=== PATIENT | male | born 1960 | race Caucasian/White ===

== ENCOUNTER 2022-08-16 10:06 | Emergency (ER) | payer MEDICARE, BC, SELFPAY ==
[2022-08-16] VITALS (17 sets, daily range): BP systolic 99–117; BP diastolic 67–81; PULSE 54–88; RESP 18; TEMP 36.3; O2SAT 94–97
--- NOTE | 2022-08-16 11:49 | CRLHL7_ITS ---
For Patients: As a result of the Century Cures Act, medical imaging exams and procedure reports are released immediately into your electronic medical record. You may view this report before your referring provider. If you have questions, please contact your health care provider. Indication: Fainted with bruise on left back Technique: Chest two views Comparison: None Findings/Impression: Cardiovascular and mediastinum: Heart size and vasculature are normal in caliber and appearance. Lungs and pleural space: Lungs are clear. No sign of infiltrate or mass. No sign of pleural effusion. No pneumothorax. Bones and soft tissues: No acute findings. Dictated by Jim Saenz MD @ 08/16/2022 12:48:38 PM (Electronically Signed)
--- OUTSIDE RECORDS SUMMARY | 2022-08-16 12:09 | XMS_ITS ---
:1960 Author Organization [facility] 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 - [address] 5pm May, Croh n's disease of small Primary [place], [place] [id number] complications K5 0.00 [facility] - [address] 5pm Apr, Croh n's disease of small Primary [place], [place] [id number] complications K5 0.00 and Low back pain M5 4.5 [facility] - [address] 5pm Jul, Low back pain M54.5 ; [place], [place] Major depress[place] disorder, [id number] recurrent severe without psychotic featur es F33.2 and Crohn's dise ase of small intestine without complications K5 0.00 [facility] - [address] 5pm Jul, Mariella r depressive disorder, [place], [place] recurrent keaton re without [id number] psychotic featur es F33.2 [facility] - [address] 5pm May, Low back pain M54.5 [place] [address] IMMUNIZATIONS No Known Immunizations SOCIAL HISTORY Never Assessed REASON FOR REFERRAL FUNCTIONAL STATUS PLAN OF CARE Activity Details Follow Up 6 Months Reason: VITAL SIGNS MEDICATIONS Medication Instructions Dosage Frequency Start End Duration Statu s Date Date Lyrica 100 mg orally 2 times a 1 cap(s) 12h Active day sertraline Active atorvastatin 20 orally once a 1 tab(s) 24h May, day(s) Active mg day 2019 Vitamin B-12 orally once a 1 tab(s) 24h May, day(s) Ac tive 500 mcg day 2019 Remicade 100 mg intravenously as directed May, wee k(s) Active every 8 weeks 2019 mirtazapine 45 TK 1 T PO D 90 Activ e mg AT BEDTIME PROCEDURES Procedure Date Ordered Result Body Site PSYCH DIAGNOSTIC EVALUATION Jul 07, 2020 RESULTS No Results REASON FOR VISIT Phone recert, PHONE recert, cannabis f.u, Depressed mood, Chronic pain, medical cannabis for crohns Insurance Providers [facility] Health Member Patient Patient Patient Patient Patient Subscriber Subscriber Subscriber Group Insurance Plan Plan Plan Plan ID Relationship Address Phone Name Date of ID Name Date of No Type Insurance Insurance Insurance Coverage to Subscriber Address Phone Name Dates BCBS [phone] [facility] self Jez J [id number] [facility] [id number] Medicare [place] [address] [place] [id number] Medicare National [phone] Medicare self Jez J 1961 [id number] [place] [id number] Part B [employer] CLAIM [address] [place] [address]
[2022-08-16] MEDS: 0.9 % SODIUM CHLORIDE 1000 ml 1,000 ML IV (12:34)
[2022-08-16 12:35] LABS: Basophils Absolute Auto 0.01 K/uL (0.00-0.30); Basophils Percent Auto 0.1 % (0.0-3.0); Eosinophils Absolute Auto 0.08 K/uL (0.00-0.50); Eosinophils Percent Auto 1.1 % (0.0-7.0); Hematocrit 41.7 % (37.0-53.0); Hemoglobin* 13.9 gm/dL (13.5-17.5); Immature Granulocytes Abs Auto 0.01 K/uL (0.00-0.30); Immature Granulocytes Pct Auto 0.1 %; Lymphocytes Absolute Auto 2.88 K/uL (0.90-2.90); Lymphocytes Percent Auto 40.6 % (20-44); Mean Corpuscular HGB Conc 33 gm/dL (32-36); Mean Corpuscular Hemoglobin 29 pg (26-34); Mean Corpuscular Volume 88 fL (80-100); Monocytes Percent Auto 9.2 % (0.0-11.0); Neutrophils Absolute Auto 3.47 K/uL (1.7-7.0); Neutrophils Percent Auto 48.9 % (42.0-72.0); Platelet Count* 215 K/uL (140-440); RDW Coefficient of Variation % 12.9 % (11.5-15.5); Red Blood Count 4.75 m/uL (4.30-5.90)
[2022-08-16 12:37] LABS: Appearance Urine Clear (Clear); Bilirubin Urine Negative (Negative); Blood Urine Negative (Negative); Color Urine Yellow (Yellow); Glucose Urine Negative (Negative); Ketones Urine Negative (Negative); Leukocyte Esterase Urine Negative (Negative); Nitrite Urine Negative (Negative); Protein Urine Negative (Negative); Specific Gravity Urine >= 1.030 (1.000-1.030); Urobilinogen Urine 0.2 (0.2-1.0); pH Urine 5.5 (5.0-8.5)
--- NOTE | 2022-08-16 12:42 | ED.GENADULT ---
HPI - General Adult General Date Seen: 08/16/22 Chief complaint: Fall/Minor Trauma Stated complaint: Fainted yesterday, aches on abdomen Time Seen by Provider: 08/16/22 11:28 Source: patient and family Mode of arrival: ambulatory Limitations: no limitations History of Present Illness HPI narrative: Patient is a very nice 61-year-old gentleman who presents here with his ambulatory for evaluation of a syncopal episode that he had 30 hours ago at 3:30 a.m., he got up and took approximately 40 steps, and then had this episode where he almost passed out, went to his knees, striking his back on the way down. He does not think he hit his head, but is possibly said he might hit his head on the way down, he was basically not out but felt weak for approximately 5 minutes he was then able to get up and walk and go back to sleep, he had gotten up to let his dog out. Does not think that the dog tripped him, denies any chest pain shortness of breath, no past history of any heart problems, says he knows he needs to drink more water, but says this is otherwise really normal. He has no previous history of syncopal episodes, no nausea no vomiting, and since this has been really okay, and as is came home recommended that he come in and get seen and he is here today. Again no past history of leg swelling pulmonary emboli DVT recent immobilization, he otherwise feels well, no pertinent heart history. Denies current headache, does have a history of previous surgery on his neck, in his lower back. Treatments prior to arrival: none Related Data Home Medications Medication Instructions Recorded Confirmed aripiprazole 2 mg tablet 2 mg PO DAILY 08/16/22 08/16/22 atorvastatin 20 mg tablet 20 mg PO DAILY 08/16/22 08/16/22 desvenlafaxine succinate 100 mg 100 mg PO DAILY 08/16/22 08/16/22 tablet,extended release 24 hr infliximab 100 mg intravenous IV .[id number] 08/16/22 solution (Remicade) levothyroxine 112 mcg tablet 224 mcg PO DAILY 08/16/22 08/16/22 mirtazapine 45 mg tablet 45 mg PO QHS 08/16/22 08/16/22 pregabalin 100 mg capsule 100 mg PO TID 08/16/22 08/16/22 Allergies Allergy/AdvReac Type Severity Reaction Status Date / Time No Known Drug Allergies Allergy Verified 08/16/22 10:26 Review of Systems Status of ROS: Reports: 10 or more systems reviewed and unremarkable except as noted in History and below [facility] Social History Smoking Status: Never smoker How often do you have a drink containing alcohol: monthly or less AUDIT-C Alcohol total score: 1 Non-prescribed substance use: denies use Exam Narrative: Exam Narrative: On examination he is in no apparent distress, sitting in room a, a little bit of ptosis is noted of his left eye which is chronic. Patient is speaking normally, problem with no slurring words, oriented x3. Head eyes ears nose and throat exam show equal pupils, no scleral icterus, extraocular muscles are normal, no facial droop, speech is normal, trachea normal and midline. Thyroid normal midline palpable not enlarged. Chest shows symmetrical rise bilaterally, normal auscultation with no wheezes, no increased work of breathing, no overt bruising or lesions seen, no tenderness is noted on auscultation. Heart sounds normal with no S3-S4 no murmurs clicks or gallops. Abdomen shows no obvious masses or hepatosplenomegaly, no organomegaly, bowel sounds are normal in all quadrants. No tenderness is noted also in all quadrants. Upper and lower extremities show normal power, normal range of motion, pulses are normal, sensations normal, fine motor movements are normal, pelvis is stable to rocking. Cervical spine shows normal range of motion, and palpably not tender. Thoracic spine shows normal range of motion, and palpably not tender, lumbar spine shows no tenderness to palpation percussion and is otherwise normal range of motion. Skin shows no rashes, petechiae. He does have some ecchymosis noted on the left scapular region, but no tenderness around the bone or swelling, Const: Vital Signs, click to edit/add: Vital Signs - 24 hr 08/16/22 10:19 08/16/22 11:30 08/16/22 11:31 Temperature 97.3 F L Pulse Rate 60 62 Pulse Rate [Right Pulse Oximeter] 88 Pulse Rate [orthos tatic lying Pulse Oximeter] Pulse Rate [orthos tatic sitting Puls e Oximeter] Pulse Rate [orthos tatic standing Pul se Oximeter] Respiratory Rate 18 Blood Pressure 115/76 111/81 Blood Pressure [Ri ght Upper Arm] 111/76 Blood Pressure [or thostatic lying Le ft Arm] Blood Pressure [or thostatic sitting Left Arm] Blood Pressure [or thostatic standing Left Arm] Pulse Oximetry 96 96 94 Oxygen Delivery Me thod Room Air 08/16/22 11:32 08/16/22 12:08 08/16/22 12:34 Temperature Pulse Rate 64 63 54 L Pulse Rate [Right Pulse Oximeter] Pulse Rate [orthos tatic lying Pulse Oximeter] Pulse Rate [orthos tatic sitting Puls e Oximeter] Pulse Rate [orthos tatic standing Pul se Oximeter] Respiratory Rate Blood Pressure Blood Pressure [Ri ght Upper Arm] Blood Pressure [or thostatic lying Le ft Arm] Blood Pressure [or thostatic sitting Left Arm] Blood Pressure [or thostatic standing Left Arm] Pulse Oximetry 96 97 97 Oxygen Delivery Me thod 08/16/22 12:55 08/16/22 12:55 08/16/22 12:57 Temperature Pulse Rate 60 60 Pulse Rate [Right Pulse Oximeter] Pulse Rate [orthos tatic lying Pulse Oximeter] 57 L Pulse Rate [orthos tatic sitting Puls e Oximeter] 54 L Pulse Rate [orthos tatic standing Pul se Oximeter] 60 Respiratory Rate Blood Pressure 111/81 110/72 Blood Pressure [Ri ght Upper Arm] Blood Pressure [or thostatic lying Le ft Arm] 111/81 Blood Pressure [or thostatic sitting Left Arm] 110/72 Blood Pressure [or thostatic standing Left Arm] 99/67 Pulse Oximetry 94 95 Oxygen Delivery Me thod 08/16/22 12:58 08/16/22 13:00 08/16/22 13:01 Temperature Pulse Rate 66 59 L 62 Pulse Rate [Right Pulse Oximeter] Pulse Rate [orthos tatic lying Pulse Oximeter] Pulse Rate [orthos tatic sitting Puls e Oximeter] Pulse Rate [orthos tatic standing Pul se Oximeter] Respiratory Rate Blood Pressure 99/67 117/71 Blood Pressure [Ri ght Upper Arm] Blood Pressure [or thostatic lying Le ft Arm] Blood Pressure [or thostatic sitting Left Arm] Blood Pressure [or thostatic standing Left Arm] Pulse Oximetry 96 97 97 Oxygen Delivery Me thod 08/16/22 13:02 08/16/22 13:30 08/16/22 13:31 Temperature Pulse Rate 55 L 85 58 L Pulse Rate [Right Pulse Oximeter] Pulse Rate [orthos tatic lying Pulse Oximeter] Pulse Rate [orthos tatic sitting Puls e Oximeter] Pulse Rate [orthos tatic standing Pul se Oximeter] Respiratory Rate Blood Pressure 117/76 Blood Pressure [Ri ght Upper Arm] Blood Pressure [or thostatic lying Le ft Arm] Blood Pressure [or thostatic sitting Left Arm] Blood Pressure [or thostatic standing Left Arm] Pulse Oximetry 96 95 94 Oxygen Delivery Nv thod 08/16/22 13:32 08/16/22 14:00 08/16/22 14:01 Temperature Pulse Rate 57 L 59 L 58 L Pulse Rate [Right Pulse Oximeter] Pulse Rate [orthos tatic lying Pulse Oximeter] Pulse Rate [orthos tatic sitting Puls e Oximeter] Pulse Rate [orthos tatic standing Pul se Oximeter] Respiratory Rate Blood Pressure 115/79 Blood Pressure [Ri ght Upper Arm] Blood Pressure [or thostatic lying Le ft Arm] Blood Pressure [or thostatic sitting Left Arm] Blood Pressure [or thostatic standing Left Arm] Pulse Oximetry 96 96 94 Oxygen Delivery Me thod Documenting provider has reviewed patient's vital signs: yes Course Course Hospital Course: I discussed with Toni that we did find anything abnormal on his workup, chest x-ray, troponin, D-dimer, were all normal, I think watching this and following up if further issues with syncope, or appropriate or if he has chest pain or feels his heart is racing or going exceedingly slow, they were comfortable this I recommend follow-up in give my recommendations on primary care physician's as the patient's is retiring. Vital Signs Vital signs: Initial Vital Signs Temperature 97.3 F L 08/16/22 10:19 Temperature Source Temporal Artery Scan 08/16/22 10:19 Pulse Rate 88 08/16/22 10:19 Pulse Rhythm 08/16/22 10:19 Pulse Strength 3+ Normal 08/16/22 10:19 Respiratory Rate 18 08/16/22 10:19 Blood Pressure 111/76 08/16/22 10:19 Blood Pressure Mean 87 08/16/22 10:19 Blood Pressure Position Sitting 08/16/22 10:19 Pulse Oximetry 96 08/16/22 10:19 Oxygen Delivery Method 08/16/22 10:19 Vital Signs Temperature 97.3 F L 08/16/22 10:19 Pulse Rate 88 08/16/22 10:19 Respiratory Rate 18 08/16/22 10:19 Blood Pressure 111/76 08/16/22 10:19 Pulse Oximetry 96 08/16/22 10:19 Oxygen Delivery Method 08/16/22 10:19 Temperature 97.3 F L 08/16/22 10:19 Pulse Rate 58 L 08/16/22 14:01 Respiratory Rate 18 08/16/22 10:19 Blood Pressure 115/79 08/16/22 14:01 Pulse Oximetry 94 08/16/22 14:01 Oxygen Delivery Method 08/16/22 10:19 Medical Decision Making MDM Narrative Medical decision making narrative: Life-threatening differential diagnosis considered include: Cardiac arrhythmia, acute blood loss, and intracranial bleed. Other differential diagnosis include but are not limited to vasovagal syncope, orthostatic syncope, seizure, as well as other etiologies Medical Records Medical records reviewed: Yes I reviewed the patient's medical records Lab Data Lab results reviewed: Yes I reviewed the patient's lab results Labs: Lab Results 08/16/22 08/16/22 08/16/22 Range/Units 12:12 12:12 12:12 WBC 7.10 (4.50-11.00) K/uL RBC 4.75 (4.30-5.90) m/uL Hgb 13.9 (13.5-17.5) gm/dL Hct 41.7 (37.0-53.0) % MCV 88 (80-100) fL MCH 29 (26-34) pg MCHC 33 (32-36) gm/dL RDW Coeff of Odalys 12.9 (11.5-15.5) % Plt Count 215 (140-440) K/uL Neut % (Auto) 48.9 (42.0-72.0) % Lymph % (Auto) 40.6 (20-44) % [place] % (Auto) 9.2 (0.0-11.0) % Eos % (Auto) 1.1 (0.0-7.0) % Baso % (Auto) 0.1 (0.0-3.0) % Neut # (Auto) 3.47 (1.7-7.0) K/uL Lymph # (Auto) 2.88 (0.90-2.90) K/uL [place] # (Auto) 0.70 (0.00-0.90) K/UL Eos # (Auto) 0.08 (0.00-0.50) K/uL Baso # (Auto) 0.01 (0.00-0.30) K/uL INR (0.91-1.10) APTT (23-33) Seconds Sodium 139 (135-149) mmol/L Potassium 4.1 (3.6-5.1) mmol/L Chloride 109 (96-114) mmol/L Carbon Dioxide 26 (20-32) mmol/L BUN 18 (7-30) mg/dL Creatinine 0.9 (0.5-1.5) mg/dL Estimated GFR 97 ml/min Glucose 93 (60-115) mg/dL Calcium 8.2 L (8.4-10.6) mg/dL Troponin I (0.01-0.04) ng/mL Urine Color (Yellow) Urine Appearance (Clear) Urine pH (5.0-8.5) Ur Specific [place] (1.000-1.030) Urine Protein (Negative) Urine Glucose (UA) (Negative) Urine Ketones (Negative) Urine Blood (Negative) Urine Nitrite (Negative) Urine Bilirubin (Negative) Urine Urobilinogen (0.2-1.0) Ur Leukocyte Esterase (Negative) Urine RBC (0-2) Urine WBC (0-5) Ur Squamous Epith Cells (None-Few) Urine Bacteria (None) SARS-CoV-2 (PCR) Negative SARS-CoV-2 (Negative) Influenza Type A (PCR) Negative PCR FLU A (Negative) Influenza Type B (PCR) Negative PCR FLU B (Negative) RSV (PCR) Negative PCR RSV (Negative) 08/16/22 08/16/22 08/16/22 Range/Units 12:12 12:12 12:30 WBC (4.50-11.00) K/uL RBC (4.30-5.90) m/uL Hgb (13.5-17.5) gm/dL Hct (37.0-53.0) % MCV (80-100) fL MCH (26-34) pg MCHC (32-36) gm/dL RDW Coeff of Odalys (11.5-15.5) % Plt Count (140-440) K/uL Neut % (Auto) (42.0-72.0) % Lymph % (Auto) (20-44) % [place] % (Auto) (0.0-11.0) % Eos % (Auto) (0.0-7.0) % Baso % (Auto) (0.0-3.0) % Neut # (Auto) (1.7-7.0) K/uL Lymph # (Auto) (0.90-2.90) K/uL [place] # (Auto) (0.00-0.90) K/UL Eos # (Auto) (0.00-0.50) K/uL Baso # (Auto) (0.00-0.30) K/uL INR 1.00 (0.91-1.10) APTT 29 (23-33) Seconds Sodium (135-149) mmol/L Potassium (3.6-5.1) mmol/L Chloride (96-114) mmol/L Carbon Dioxide (20-32) mmol/L BUN (7-30) mg/dL Creatinine (0.5-1.5) mg/dL Estimated GFR ml/min Glucose (60-115) mg/dL Calcium (8.4-10.6) mg/dL Troponin I < 0.01 L (0.01-0.04) ng/mL Urine Color Yellow (Yellow) Urine Appearance Clear (Clear) Urine pH 5.5 (5.0-8.5) Ur Specific [place] >= 1.030 (1.000-1.030) Urine Protein Negative (Negative) Urine Glucose (UA) Negative (Negative) Urine Ketones Negative (Negative) Urine Blood Negative (Negative) Urine Nitrite Negative (Negative) Urine Bilirubin Negative (Negative) Urine Urobilinogen 0.2 (0.2-1.0) Ur Leukocyte Esterase Negative (Negative) Urine RBC 0-2 (0-2) Urine WBC 0-2 (0-5) Ur Squamous Epith Cells Few (None-Few) Urine Bacteria None (None) SARS-CoV-2 (PCR) (Negative) Influenza Type A (PCR) (Negative) Influenza Type B (PCR) (Negative) RSV (PCR) (Negative) Imaging Data Chest x-ray: Attestation: I have reviewed the pertinent imaging results. My impression: No acute findings Radiologist's impression: Patient: TONI HINOJOSA Facility:?[facility] Patient ID:?[id number] Site Patient ID:?[id number]. Site :?[id number] Study:?XRay Chest -08/16/2022 12:09:31 PM Ordering Physician:Dougie Brewster Final Report: Indication: Fainted with bruise on left back Technique: Chest two views Comparison: None Findings/Impression: Cardiovascular and mediastinum: Heart size and vasculature are normal in caliber and appearance. Lungs and pleural space: Lungs are clear. No sign of infiltrate or mass. No sign of pleural effusion. No pneumothorax. Bones and soft tissues: No acute findings. Dictated by Jim Saenz MD @ 08/16/2022 12:48:38 PM (Electronic Signature) ECG Data Attestation: I personally reviewed and interpreted this ECG as follows: Interpretation: EKG shows normal sinus rhythm with a ventricular rate of 58, right bundle-branch block incomplete configuration is noted, QRS QT [place] intervals are all normal. No acute ST wave changes. No acute changes seen. Discharge Plan Discharge Clinical Impression: Contusion, Syncope Patient Disposition: Home w/ Parent or Adult Condition: Stable Instructions: Syncope (ED), Bone Bruise (ED) Additional Instructions: Home rest lots of fluids, increase overall your fluid intake, see how it goes, report back to the ER if increasing symptoms of dizziness, syncope, or other symptoms such as passing out, chest pain, recommend follow-up with primary care in the next 3-5 days. Prescriptions: No Action aripiprazole 2 mg tablet 2 mg PO DAILY atorvastatin 20 mg tablet 20 mg PO DAILY desvenlafaxine succinate 100 mg tablet extended release 24 hr 100 mg PO DAILY levothyroxine 112 mcg tablet 224 mcg PO DAILY mirtazapine 45 mg tablet 45 mg PO QHS Label Comments: TAKE 1 TABLET BY MOUTH EVERY NIGHT AT BEDTIME pregabalin 100 mg capsule 100 mg PO TID Label Comments: TAKE 1 CAPSULE BY MOUTH THREE TIMES DAILY infliximab [Remicade] 100 mg recon soln IV .[id number] Follow Up/Referrals: Alonzo Roberts MD [Staff Physician] - Provider,Not a Local [Primary Care Provider] - Stand Alone Forms: [employer] Info Instructions
[2022-08-16 12:47] LABS: Slide Review Reflex No
[2022-08-16 13:02] LABS: Chloride* 109 mmol/L (96-114); Potassium* 4.1 mmol/L (3.6-5.1); Sodium* 139 mmol/L (135-149)
[2022-08-16 13:04] LABS: Creatinine* 0.9 mg/dL (0.5-1.5); Estimated Glomerular Filt Rate 97 ml/min; Partial Thromboplastin Time* 29 Seconds (23-33); Prothrombin Time 13.8 Seconds
[2022-08-16 13:04] LABS: RBC Urine 0-2 (0-2); WBC Urine 0-2 (0-5)
[2022-08-16 13:05] LABS: Blood Urea Nitrogen* 18 mg/dL (7-30); Calcium* 8.2 mg/dL (8.4-10.6); Carbon Dioxide* 26 mmol/L (20-32); Glucose* 93 mg/dL (60-115)
[2022-08-16 13:05] LABS: Squamous Epithelial Cell Urine Few (None-Few)
[2022-08-16 13:11] LABS: PCR FLU A Negative PCR FLU A (Negative); PCR FLU B Negative PCR FLU B (Negative); PCR RSV Negative PCR RSV (Negative)
[2022-08-16 13:12] LABS: SARS PCR* Negative SARS-CoV-2 (Negative)
[2022-08-16 13:25] LABS: Troponin I* < 0.01 ng/mL (0.01-0.04)
== END 2022-08-16 14:17 | disposition home or self-care (01) ==
PROVIDERS: Emergency Provider Family Medicine
DX: R55 Syncope and collapse (principal); S40.011A Contusion of right shoulder, initial encounter
CPT/HCPCS: 36415; 71046; 80048; 81001; 84484; 85025; 85610; 85730; 87502; 87634; 87635; 93005; 96360; 99284; 99285; J7030

== ENCOUNTER 2024-03-18 04:02 | Outpatient (CLI) | payer MEDICARE, BC, SELFPAY | END 2024-03-18 04:03 | disposition home or self-care (01) | LOC: AMB 03-20 02:54 | PROVIDERS: Visit Provider Family Medicine | DX: G40.909 Epilepsy, unspecified, not intractable, without status epilepticus (principal) | CPT/HCPCS: A0425; A0427 ==

== ENCOUNTER 2024-03-18 13:45 | Outpatient (CLI) | payer MEDICARE, BC, SELFPAY | END 2024-03-18 13:46 | disposition home or self-care (01) | LOC: AMB 03-20 03:39 | PROVIDERS: Visit Provider Emergency Medicine | DX: G40.909 Epilepsy, unspecified, not intractable, without status epilepticus (principal) | CPT/HCPCS: A0425; A0427 ==

== ENCOUNTER 2024-04-09 20:08 | Outpatient (CLI) | payer MEDICARE, BC, SELFPAY ==
--- OUTSIDE RECORDS SUMMARY | 2024-04-09 20:11 | XMS_ITS | Encounter Summary ---
Author Organization [facility] Address [address] [place] [address]. [place] [address] Care Team Providers Care Trains Service Conductor Name Role Phone Presley, Angle Tenorio Primary Care Provider Encounter Details Date Type Department Care Team (Latest Contact Info) Description 03/18/2024 Travel Social History Tobacco Use Types Packs/Day Years Used Date Smoking Tobacco: Never Assessed Food Insecurity Answer Date Recorded Within the past 12 months, d id you worry that your food would run out before you got money to buy more? No 03/18/2024 Within the past 12 months, d id the food you bought just not last and you didn? t have money to get more? No 03/18/2024 Housing Stability Answer Date Recorded Do you have housing? (Devni g is defined as stable permanent housing and does not include staying ouside in a car, in a tent, in an abandoned building, in an overnight half-way, or couch-surfing.) No 03/18/2024 Are you worried about losing your housing? No 03/18/2024 Financial Resource Strain Answer Date R ecorded Within the past 12 months, h ave you or your family members you live with been unable to get utilities (heat, electricity) when it was really needed? No 03/18/2024 Transportation Needs Answer Date Record ed Within the past 12 months, h as lack of transportation kept you from medical appointments, getting your medicines, non-medical meetings or appointments, work, or from getting things that you need? No 03/18/2024 Interpersonal Safety Answer Date Record ed Do you feel physically and e motionally safe where you currently live? No 03/18/2024 Within the past 12 months, h ave you been hit, slapped, kicked or otherwise physically hurt by someone? No 03/18/2024 Within the past 12 months, h ave you been humiliated or emotionally abused in other ways by your partner or ex-partner? No 03/18/2024 Sex and Gender Information Value Date Recorded Sex Assigned at Not on file Gender Identity Not on file Sexual Orientation Not on file documented as of this encounter Plan of Treatment Not on file documented as of this encounter Visit Diagnoses Not on filedocumented in this encounter Care Teams Trains Service Conductor Relationship Specialty Start Date End Date [facility], [address] [address] PCP - General 03/18/24 documented as of this encounter
--- OUTSIDE RECORDS SUMMARY | 2024-04-09 20:11 | XMS_ITS | Encounter Summary ---
Author Organization [place] Address [address] [place] [address] Care Team Providers Care Senior Programmer Name Role Phone [facility], [facility] Primary Care Provider Reason for Visit * Reason Comments Seizures * Auth/Cert (Routine) Specialty Diagnoses / Procedures Referred By William t Referred To Contact Med Surg Diagnoses New onset seizure (H) New onset seizure (H) 3 Medical Surgical [address] [place] [address] Referral ID Status Reason Start Date Expiration Date Visits Re quested Visits Authorized [id number] 1 1 Encounter Details Date Type Department Care Team (Late st Contact Info) Description 03/18/2024 2:30 PM CDT - 03/19/2024 7:08 PM CDT [place] [address] [facility] [address] [place] [address] Benny Gutierrez MD [facility] [address] [place], [place] [id number] Jonathan Lynch, DO [address] [place] [address] Mehdi Simmons MD [address] [place] [address] New onset seizure (H) Discharge Disposition: Home or Self Care Social History Tobacco Use Types Packs/Day Years [...] Answer Date Recorded Do you have housing? (Devin anderson is defined as stable permanent housing and does not include staying ouside in a car, in a tent, in an abandoned building, in an overnight [place] [facility] [place], or couch-surfing.) No 03/18/2024 Are you worried [...] on file documented as of this encounter Last Filed Vital Signs Vital Sign Reading Time Taken Comments Blood Pressure 129/88 03/19/2024 3:45 PM CDT Pulse 74 03/19/2024 3:45 PM CDT Temperature 36.9 ??C (98.4 ??F) 03/19/2024 3:45 PM CD T Respiratory Rate 18 03/19/2024 3:45 PM CDT Oxygen Saturation 95% 03/19/2024 3:45 PM CDT Inhaled Oxygen Concentration - - Weight 100.4 kg (221 lb 6.4 oz) 03/18/2024 8:16 PM CDT Height 185.4 cm (6' 1) 03/18/2024 8:16 PM CDT Body Mass Index 29.21 03/18/2024 8:16 PM CDT documented in this encounter Discharge Summaries * Mehdi Simmons MD - 03/19/2024 5:[address] [facility] Discharge Summary Name: Jez Arechiga Date of : 1960 Age: [age] year old Date of Discharge: 03/19/2024 Date of Admission: 03/18/2024 Primary Care Provider: Angle Sherwood Discharge Physician: Sigifredo Simmons MD Discharging Service: Hospitalist Hospital Course/Discharge Diagnoses: Jez Arechiga is a 63 year old male with a history of PTSD, Skin Cancer, Spinal Stenosis, Depression, Bowel Obstruction, Crohn's Disease, Hypothyroidism, CVA, Regular Alcohol Use who presented to [facility] emergency room on 03/18/2024 after multiple generalized tonic-clonic type seizures at home. He does not have any prior history of seizure disorder and no history of alcohol withdrawal. He drinks 2 to 4 ounces of bourbon per night. He has not felt acutely ill otherwise without recent medication changes or infections. Here he underwent CT head and CT angiogram without acute abnormality. MRI was negative for acute pathology but showed some chronic changes. EEG showed evidence of mild encephalopathy. He has not manifested any evidence of alcohol withdrawal. Here he was loaded with 1500 mg of IV Keppra and then continued on 500 mg twice daily. Since admission he is felt a slight bit of brain fog but no further seizure activity or other acute changes. At this point the cause remains unclear to me. He has been counseled regarding abstaining from alcohol moving forward and neurology consultation is pending. I did mention to him that his Pristiq and possibly Remeron and Abilify are rarely implicated in seizure activity and requested that they review his medication list with neurology. Update: He was seen by neurology and is discharging home w/ ongoing Keppra 500 mg BID, no discontinuation of any specific medications and outpatient follow up for repeat EEG with [facility]. Seizures Hx of daily alcohol use - no signs of alcohol withdrawal at this time. Can stop CIWA protocol - s/p IV Keppra 1500 mg, I have ordered 500 mg oral twice daily for now pending neurology follow up. -Alcohol negative, urine tox screen negative -EEG with evidence of mild encephalopathy -MRI without anything that appears to be acute, does have a number of chronic appearing nonspecificfindings - Neurology consult appreciated - no driving for three months. Hx Lacunar Infarcts MRI 03/2023 revealed chronic lacunar infarcts in the bilateral basal ganglia, left thalamus and cerebellum. - continue Atorvastatin and ASA Hx Cervical Spondylosis and Myelopathy Hx Cervical Spine Fusion DDD Spinal Stenosis Hx Radiculopathy Followed by Neurology through [facility]. Previously had a spinal stimulator. Has a hx of radicular right leg pain at baseline. Crohn's Disease Dx 1979, s/p two bowel surgeries including an ileocecal resection. Followed by GI with [facility]. Currently on Infliximab. Depression PTSD -Pristiq, Abilify and Remeron Hypothyroidism Most recent TSH wnl 03/2023 -TSH normal - continue Levothyroxine Discharge Disposition: Discharged to home Allergies: No Known Allergies Discharge Medications: Review of your medicines START taking Dose / Directions levETIRAcetam 500 MG tablet Commonly known as: KEPPRA Dose: 500 mg Take 1 tablet (500 mg) by mouth 2 times daily. Quantity: 60 tablet Refills: 0 CONTINUE these medicines which have NOT CHANGED Dose / Directions ARIPiprazole 2 MG tablet Commonly known as: ABILIFY Dose: 2 mg Take 2 mg by mouth daily. Refills: 0 aspirin 81 MG EC tablet Dose: 81 mg Take 81 mg by mouth daily. Refills: 0 atorvastatin 20 MG tablet Commonly known as: LIPITOR Dose: 20 mg Take 20 mg by mouth daily. Refills: 0 desvenlafaxine 50 MG 24 hr tablet Commonly known as: PRISTIQ Dose: 50 mg Take 50 mg by mouth daily. Refills: 0 levothyroxine 200 MCG tablet Commonly known as: SYNTHROID/LEVOTHROID Dose: 200 mcg Take 200 mcg by mouth daily. Refills: 0 pregabalin 100 MG capsule Commonly known as: LYRICA Dose: 100 mg Take 100 mg by mouth 3 times daily. Refills: 0 REMERON PO Dose: 45 mg Take 45 mg by mouth At Bedtime Refills: 0 REMICADE IV Dose: 1,000 mg Inject 1,000 mg into the vein every 28 (twenty-eight) days. Refills: 0 VITAMIN B 12 PO Dose: 1,000 mcg Take 1,000 mcg by mouth daily Refills: 0 VITAMIN D (CHOLECALCIFEROL) PO Dose: 10,000 Units Take 10,000 Units by mouth once a week. on Tuesday Refills: 0 Where to get your medicines Some of these will need a paper prescription and others can be bought over the counter. Ask your nurse if you have questions. Bring a paper prescription for each of these medications levETIRAcetam 500 MG tablet Condition on Discharge: Discharge condition: Stable Code status on discharge: Full Code History of Illness: See detailed admission note for full details. Physical Exam: Vital signs: Temp: 98.4 ??F (36.9 ??C) Temp src: Oral BP: 129/88 Pulse: 74 Resp: 18 SpO2: 95 % O2 Device: None (Room air) Height: 185.4 cm (6' 1) Weight: 100.4 kg (221 lb 6.4 oz) Estimated body mass index is 29.21 kg/m?? as calculated from the following: Height as of this encounter: 1.854 m (6' 1). Weight as of this encounter: 100.4 kg (221 lb 6.4 oz). Wt Readings from Last 1 Encounters: 03/18/24 100.4 kg (221 lb 6.4 oz) General: Alert, awake, no acute distress. HEENT: NC/AT, eyes anicteric, external occular movements intact, face symmetric. Dentition WNL, MM moist. Cardiac: RRR, S1, S2. No murmurs appreciated. Pulmonary: Normal chest rise, normal work of breathing. Lungs CTA BL Abdomen: soft, non-tender, non-distended. Bowel Sounds Present. No guarding. Extremities: no deformities. Warm, well perfused. Skin: no rashes or lesions noted. Warm and Dry. Neuro: No focal deficits noted. Speech clear. Coordination and strength grossly normal. Psych: Appropriate affect. Procedures other than Imaging: EEG Imaging: Results for orders placed or performed during the hospital encounter of 03/18/24 MR Brain w/o & w Contrast Narrative EXAM: MR BRAIN W/O and W CONTRAST LOCATION: [facility] DATE: 03/18/2024 INDICATION: New-onset seizure of unclear etiology in a patient with history of prior lacunar infarcts COMPARISON: CT/CTA performed earlier today CONTRAST: 9 mL of Gadavist TECHNIQUE: Routine multiplanar multisequence head MRI without and with intravenous contrast. FINDINGS: INTRACRANIAL CONTENTS: No acute/subacute infarct, acute hemorrhage, or extra- axial fluid collection. Chronic small-vessel infarcts involving the bilateral basal ganglia, left thalamus, and bilateral cerebellar hemispheres (greater on the left). No intracranial mass or pathologic enhancement. 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 Several scattered additional foci of T2 prolongation within the bilateral cerebral white matter, nonspecific although most likely the sequela of mild chronic microvascular ischemia. Mild generalized cerebral parenchymal volume loss. No hydrocephalus. Normal position of the cerebellar tonsils. Incidental right-sided posterior fossa arachnoid cyst, of doubtful clinical significance. SELLA: Within technique limitations, no gross abnormality. OSSEOUS STRUCTURES/SOFT TISSUES: No suspicious bone marrow signal intensity. Susceptibility artifact from cervical ACDF at C4-C6. The major intracranial vascular flow voids are maintained. SINUSES/MASTOIDS: No evidence of significant paranasal sinus or mastoid mucosal disease. Impression IMPRESSION: 1. No acute intracranial abnormality. 2. Chronic changes, as described. Consultations: Consultation during this admission received from neurology. Recent Lab Results: Recent Labs Lab 03/18/24 1535 03/18/24 0456 WBC 11.4* 8.6 HGB 13.7 13.8 HCT 42.1 42.7 MCV 91 91 PLT 198 212 Lab Results Component Value Date NA 139 03/18/2024 NA 139 03/18/2024 NA 139 05/06/2014 Lab Results Component Value Date CHLORIDE 108 03/18/2024 CHLORIDE 107 03/18/2024 CHLORIDE 106 05/06/2014 Lab Results Component Value Date BUN 19.4 03/18/2024 BUN 22.0 03/18/2024 BUN 20 05/06/2014 Lab Results Component Value Date POTASSIUM 3.9 03/19/2024 POTASSIUM 3.5 03/18/2024 POTASSIUM 4.1 03/18/2024 POTASSIUM 3.7 05/06/2014 Lab Results Component Value Date CO2 20 03/18/2024 CO2 19 03/18/2024 CO2 27 05/06/2014 Lab Results Component Value Date CR 1.04 03/18/2024 CR 1.04 03/18/2024 CR 1.62 05/06/2014 Pending Results: Unresulted Labs Ordered in the Past 30 Days of this Admission No orders found for last 31 day(s). Discharge Instructions and Follow-Up: Discharge Procedure Orders Reason for your hospital stay Order Comments: You were admitted for multiple seizures at home. Imaging here did not show a specific structural cause. Activity Order Comments: Your activity upon discharge: activity as tolerated but no driving for at least 3 months and cleared by your neurologist. Would not operate machinery or put yourself in situations where a fall could be particularly hazardous. Order Specific Question Answer Comments Is discharge order? Yes Follow-up and recommended labs and tests Order Comments: Follow-up with [facility] for repeat EEG and consider checking a Keppra level. Diet Order Comments: Follow this diet upon discharge: Current Diet:Orders Placed This Encounter Combination Diet Regular Diet Adult Order Specific Question Answer Comments Is discharge order? Yes Total time spent in face to face contact with the patient and coordinating discharge was: 60 Minutes. documented in this encounter Discharge Instructions * Attachments The following attachments cannot be sent through Care Everywhere. * Seizure (Somali) * How to Help Someone During a Seizure: Video (Somali) documented in this encounter Medications at Time of Discharge Medication Sig Dispensed Refills Start Date End Date ARIPiprazole (ABILIFY) 2 MG tablet Take 2 mg by mouth daily. aspirin 81 MG EC tablet Take 81 mg by mouth daily. atorvastatin (LIPITOR) 20 MG tablet Take 20 mg by mouth daily. Cyanocobalamin (VITAMIN B 12 PO) Take 1,000 mcg by mouth daily desvenlafaxine (PRISTIQ) 50 MG 24 hr tablet Take 50 mg by mouth daily. inFLIXimab (REMICADE IV) Inject 1,000 mg into the vein every 28 (twenty-eight) days. levETIRAcetam (KEPPRA) 500 MG tabletIndications:New onset seizure (H) Take 1 tablet (500 mg) by mouth 2 times daily. 60 tablet 03/19/2024 levothyroxine (SYNTHROID/LEVOTHROID) 200 MCG tablet Take 200 mcg by mouth daily. Mirtazapine (REMERON PO) Take 45 mg by mouth At Bedtime pregabalin (LYRICA) 100 MG capsule Take 100 mg by mouth 3 times daily. VITAMIN D, CHOLECALCIFEROL, PO Take 10,000 Units by mouth once a week. on Tuesday documented as of this encounter Progress Notes * Mehdi Simmons MD - 03/19/2024 3:45 PM CDT [facility] Medicine Progress Note - Hospitalist Service Date of Admission: 03/18/2024 Assessment & Plan Jez Arechiga is a 63 year old male with a history of PTSD, Skin Cancer, Spinal Stenosis, Depression, Bowel Obstruction, Crohn's Disease, Hypothyroidism, CVA, Regular Alcohol Use who presented to [facility] emergency room on 03/18/2024 after multiple generalized tonic-clonic type seizures at home. He does not have any prior history of seizure disorder and no history of alcohol withdrawal. He drinks 2 to 4 ounces of bourbon per night. He has not felt acutely ill otherwise without recent medication changes or infections. Here he underwent CT head and CT angiogram without acute abnormality. MRI was negative for acute pathology but showed some chronic changes. EEG showed evidence of mild encephalopathy. He has not manifested any evidence of alcohol withdrawal. Here he was loaded with 1500 mg of IV Keppra and then continued on 500 mg twice daily. Since admission he is felt a slight bit of brain fog but no further seizure activity or other acute changes. At this point the cause remains unclear to me. He has been counseled regarding abstaining from alcohol moving forward and neurology consultation is pending. I did mention to him that his Pristiq and possibly Remeron and Abilify are rarely implicated in seizure activity and requested that they review his medication list with neurology. Pending neurology input he may be able to discharge home later tonight versus early tomorrow. Seizures Hx of daily alcohol use - no signs of alcohol withdrawal at this time. Can stop CIWA protocol - s/p IV Keppra 1500 mg, I have ordered 500 mg oral twice daily for now pending neurology input. - prn Ativan - seizure precautions -Alcohol negative, urine tox screen negative -EEG with evidence of mild encephalopathy -MRI without anything that appears to be acute, does have a number of chronic appearing nonspecificfindings - Neurology consult pending Hx Lacunar Infarcts MRI 03/2023 revealed chronic lacunar infarcts in the bilateral basal ganglia, left thalamus and cerebellum. - continue Atorvastatin and ASA Hx Cervical Spondylosis and Myelopathy Hx Cervical Spine Fusion DDD Spinal Stenosis Hx Radiculopathy Followed by Neurology through [facility]. Previously had a spinal stimulator. Has a hx of radicular right leg pain at baseline. Crohn's Disease Dx 1979, s/p two bowel surgeries including an ileocecal resection. Followed by GI with [facility]. Currently on Infliximab. Depression PTSD -Holding Pristiq, Abilify and Remeron pending neurology review Hypothyroidism Most recent TSH wnl 03/2023 -TSH normal - continue Levothyroxine Diet: Combination Diet Regular Diet Adult Diet DVT Prophylaxis: Pneumatic Compression Devices Martinez Catheter: Not present Lines: None Cardiac Monitoring: ACTIVE order. Indication: seizure Code Status: Full Code Clinically Significant Risk Factors Present on Admission # Hypocalcemia: Lowest Ca = 8.4 mg/dL in last 2 days, will monitor and replace as appropriate # Drug Induced Platelet Defect: home medication list includes an antiplatelet medication # Overweight: Estimated body mass index is 29.21 kg/m?? as calculated from the following: Height as of this encounter: 1.854 m (6' 1). Weight as of this encounter: 100.4 kg (221 lb 6.4 oz). Disposition Plan Medically Ready for Discharge: Anticipated Today Mehdi Simmons MD Hospitalist Service [facility] Securely message with Rudder (more info) Text page via [facility] Paging/Directory Interval History No further seizure activity MRI negative for acute pathology, does have some chronic changes Updated his at the bedside EEG obtained shows evidence of mild encephalopathy He does feel slightly hazy still, short-term memory marginally impaired per his Discussed medications with him that could potentially lower seizure threshold. He denies any recentmedication changes Physical Exam Vital Signs: Temp: 97.6 ??F (36.4 ??C) Temp src: Oral BP: 125/67 Pulse: 82 Resp: 18 SpO2: 94 % O2 Device: None (Room air) Weight: 221 lbs 6.4 oz General: Alert, awake, no acute distress. HEENT: NC/AT, eyes anicteric, external occular movements intact, face symmetric. Cardiac: RRR, S1, S2. No murmurs appreciated. Pulmonary: Normal chest rise, normal work of breathing. Lungs CTA BL Abdomen: soft, non-tender, non-distended. Bowel Sounds Present. No guarding. Extremities: no deformities. Warm, well perfused. Skin: no rashes or lesions noted. Warm and Dry. Neuro: No focal deficits noted. Speech clear. Coordination and strength grossly normal. Psych: Appropriate affect. Medical Decision Making 40 MINUTES SPENT BY ME on the date of service doing chart review, history, exam, documentation & further activities per the note. Data I have personally reviewed the following data over the past 24 hrs: N/A \ N/A / N/A N/A N/A N/A / N/A 3.9 N/A N/A \ TSH: N/A T4: N/A A1C: N/A documented in this encounter H&P Notes * Clara Sanchez PA-C - 03/18/2024 4:[address] [facility] Internal Medicine History and Physical Patient Name: Jez Arechiga Age: [age] year old Date of : 1960 Date of Admission:03/18/2024 Primary care provider: Angle Sherwood Date of Service: 03/18/2024 Assessment and Plan: Jez Arechiga is a 63 year old male with a history of PTSD, Skin Cancer, Spinal Stenosis, Depression, Bowel Obstruction, Crohn's Disease, Hypothyroidism, CVA, Regular Alcohol Use who presents to the ED today due to a Seizure. Seizure Hx Alcohol Dependence Pt presents with two separate seizures today of unclear etiology. No prior hx of seizure disorder. No recent trauma reported. Does have a hx of a syncopal episode 2 years ago of unclear etiology. Haschronic episodes of dysequilibrium while driving that have been evaluated by Neurology in the past.Uses alcohol daily of 4 oz of bourbon each day, last drink was last night with no hx of withdrawals. No electrolyte abnormalities on lab work up. Afebrile with no meningeal signs. Denies illicit druguse. CTH/CTA with no acute abnormality, noted plaque without stenosis at the internal carotid origins bilaterally. - no signs of alcohol withdrawal at this time. Monitor CIWA scores - s/p IV Keppra - prn Ativan - seizure precautions - add on magnesium, phosphorus, tsh, etoh and utox - obtain EEG and brain MRI - Neurology consult - pharmacy consult to review home medications with potential for seizure Hx Lacunar Infarcts MRI 03/2023 revealed chronic lacunar infarcts in the bilateral basal ganglia, left thalamus and cerebellum. - continue Atorvastatin and ASA - obtain Brain MRI as above Hx Cervical Spondylosis and Myelopathy Hx Cervical Spine Fusion DDD Spinal Stenosis Hx Radiculopathy Followed by Neurology through [facility]. Previously had a spinal stimulator. Has a hx of radicular right leg pain at baseline. Crohn's Disease Dx 1979, s/p two bowel surgeries including an ileocecal resection. Followed by GI with [facility]. Currently on Infliximab. Depression PTSD - continue Desvenlafaxine Hypothyroidism Most recent TSH wnl 03/2023 - check TSH - continue Levothyroxine CODE: full Diet/IVF: regular DVT ppx: scd Clara Sanchez MS PA-C Physician [employer] [facility] Hospitalist Service Awaiting formal pharmacy med rec to confirm home medications. Chief Complaint: Seizure HPI: 63 year old male with a history of PTSD, Skin Cancer, Spinal Stenosis, Depression, Bowel Obstruction, Crohn's Disease, Hypothyroidism, CVA, Regular Alcohol Use who presents to the ED today due to a Seizure. Patient presented to the ED earlier this morning after a seizure with no reported head trauma. Drinks 2 alcoholic drinks daily. CTH/CTA with no acute abnormality. Patient was discharged home with plans for outpatient Neurology follow up. He returns this afternoon after he had another seizure at home. Currently, he reports a mild frontal headache. Denies any new medications. Reports chronic RLE radiculopathy at baseline. 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 Overview: inactive icd-9 diagnosis auto replaced with icd-10, display name retained//mporz Spinal stenosis of cervical region 06/11/2014 Pain Low Back 12/08/2002 LW Modifier: DDD,DJD Anxiety (HRC) Cancer (HRC) skin Past Surgical History: Past Surgical History: Procedure Laterality Date ORTHOPEDIC SURGERY SMALL INTESTINE SURGERY COLOSTOMY PARTIAL THYROIDECTOMY KNEE CARTILAGE SURGERY Right LUMBAR DISKECTOMY CERVICAL FUSION TONSILLECTOMY Social History: Social History Socioeconomic History Marital status: Spouse name: Not on file Number of children: Not on file Years of education: Not on file Highest education level: Not on file Occupational History Not on file Tobacco Use Smoking status: Not on file Smokeless tobacco: Not on file Substance and Sexual Activity Alcohol use: Not on file Drug use: Not on file Sexual activity: Not on file Other Topics Concern Not on file Social History Narrative Not on file Social Determinants of Health Financial Resource Strain: Low Risk (10/06/2022) Received from [facility] Financial Resource Strain Difficulty of Paying Living Expenses: 3 Difficulty of Paying Living Expenses: Not on file Food Insecurity: No Food Insecurity (10/06/2022) [facility] Worried About Running Out of Food in the Last Year: 1 Transportation Needs: No Transportation Needs (10/06/2022) Received from [facility] Transportation Needs Lack of Transportation (Medical): 1 Physical Activity: Not on file Stress: Not on file Social Connections: Unknown (10/08/2023) Received from [facility] Social Connections Frequency of Communication with Friends and Family: Not on file Interpersonal Safety: Not on file Housing Stability: Low Risk (10/06/2022) Received from [facility] Housing Stability Unable to Pay for Housing in the Last Year: 1 Family History: History reviewed. No pertinent family history. Allergies: No Known Allergies Medications: Prior to Admission medications Medication Sig Last Dose Taking? Auth Provider Care Home End Date AzaTHIOprine (IMURAN PO) Reported, Patient Yes Cyanocobalamin (VITAMIN B 12 PO) Take 1,000 mcg by mouth daily Reported, Patient Levothyroxine Sodium (SYNTHROID PO) Take 40 mcg by mouth Reported, Patient Yes Mirtazapine (REMERON PO) Take 45 mg by mouth At Bedtime Reported, Patient Yes PREDNISONE PO Take 5 mg by mouth daily Reported, Patient VITAMIN D, CHOLECALCIFEROL, PO Take 2,000 Units by mouth daily Reported, Patient Review of Systems: A complete ROS was performed and is negative other than what is stated in the HPI. Physical Exam: Blood pressure 132/89, pulse 80, temperature 97.8 ??F (36.6 ??C), temperature source Oral, resp. rate 11, SpO2 96%. General: Alert, interactive, NAD, tired, but awake, keeping eyes closed. HEENT: AT/NC, sclera anicteric, PERRL, EOMI, Chest/Resp: clear to auscultation bilaterally, no crackles or wheezes Heart/CV: regular rate and rhythm, no murmur Abdomen/GI: Soft, nontender, nondistended. +BS. No rebound or guarding. Extremities/MSK: No LE edema Skin: Warm and dry Neuro: Alert & oriented x 3, no focal deficits, moves all extremities equally Labs: ROUTINE ICU LABS (Last four results) CMP Recent Labs Lab 03/18/24 1535 03/18/24 0456 NA 139 139 POTASSIUM 4.1 3.8 CHLORIDE 108* 107 CO2 20* 19* ANIONGAP 11 13 GLC 101* 127* BUN 19.4 22.0 CR 1.04 1.04 GFRESTIMATED 80 80 KAYODE 8.4* 8.8 PROTTOTAL -- 7.2 ALBUMIN -- 3.8 BILITOTAL -- 0.2 ALKPHOS -- 58 AST -- 26 ALT -- 25 CBC Recent Labs Lab 03/18/24 1535 03/18/24 0456 WBC 11.4* 8.6 RBC 4.65 4.67 HGB 13.7 13.8 HCT 42.1 42.7 MCV 91 91 MCH 29.5 29.6 MCHC 32.5 32.3 RDW 13.9 13.6 PLT 198 212 INRNo lab results found in last 7 days. Arterial Blood GasNo lab results found in last 7 days. Imaging/Procedures: Results for orders placed or performed during the hospital encounter of 03/18/[address] w/o contrast Narrative EXAM: CT HEAD W/O CONTRAST LOCATION: [facility] DATE: 03/18/2024 INDICATION: seizure COMPARISON: None. TECHNIQUE: Routine CT Head without IV contrast. Multiplanar reformats. Dose reduction techniques were used. FINDINGS: INTRACRANIAL CONTENTS: Probable retrocerebellar arachnoid cyst. No acute intracranial hemorrhage ormass effect. No CT evidence of acute infarct. Mild presumed chronic small vessel ischemic changes. Mild generalized volume loss. No hydrocephalus. VISUALIZED ORBITS/SINUSES/MASTOIDS: No intraorbital abnormality. No paranasal sinus mucosal disease. No middle ear or mastoid effusion. BONES/SOFT TISSUES: No acute abnormality. Impression IMPRESSION: 1. No CT evidence for acute intracranial process. 2. Brain atrophy and presumed chronic microvascular ischemic changes as above. CTA Head Neck with Contrast Narrative EXAM: CTA HEAD NECK WITH CONTRAST LOCATION: [facility] DATE: 03/18/2024 INDICATION: Headache, seizure; Headache; Acute DAVEY (< 3 months), no complicating features. COMPARISON: None. CONTRAST: 70 mL [id number]. TECHNIQUE: Head and neck CT angiogram with IV contrast. Axial helical CT images of the head and neck vessels obtained during the arterial phase of intravenous contrast administration. Axial 2D reconstructed images and multiplanar 3D MIP reconstructed images of the head and neck vessels were performed by the technologist. Dose reduction techniques were used. All stenosis measurements made according to NASCET criteria unless otherwise specified. FINDINGS: HEAD CTA: ANTERIOR CIRCULATION: No stenosis/occlusion, aneurysm, or high-flow vascular malformation. [place] anatomy. POSTERIOR CIRCULATION: No stenosis/occlusion, aneurysm, or high-flow vascular malformation. Balanced vertebral arteries supply a normal basilar artery. DURAL VENOUS SINUSES: Expected enhancement of the major dural venous sinuses. NECK CTA: CAROTIDS: The common carotid arteries bilaterally are patent without stenosis. There is atherosclerotic plaque at the internal carotid origins on both sides that does not result in any significant vascular narrowing. The cervical internal carotid arteries bilaterally are otherwise unremarkable. VERTEBRAL ARTERIES: No focal stenosis or dissection. Balanced vertebral arteries. AORTIC ARCH: Classic aortic arch anatomy with no significant stenosis at the origin of the great vessels. NONVASCULAR STRUCTURES: Unremarkable. Impression IMPRESSION: HEAD CTA: 1. Normal CTA [place]. NECK CTA: 1. Plaque without stenosis at the internal carotid origins bilaterally. 2. Otherwise, normal neck CTA. Associated attestation - Jonathan Lynch DO - 03/23/2024 12:35 PM CDT Physician Attestation I have reviewed and discussed with the advanced practice provider their history, physical and plan for Jez Arechiga. I did not participate in a shared visit; this is an advanced practice provider only visit. Jonathan Lynch DO Date of Service (when I saw the patient): I did not personally see this patient today. documented in this encounter Consult Notes * Sary Aldana MD - 03/19/2024 4:27 PM CDTAssociated Order(s): NEUROLOGY IP CONSULT [facility] Neurology Consultation Date of Admission: 03/18/2024 Assessment & Plan Jez Arechiga is a 63 year old male who was admitted on 03/18/2024. I was asked to see the patientfor first time seizure . The patient is a 63-year-old gentleman who had a first-time seizure. No clear- cut etiology so far. EEG done today shows mild episode of slowing which might be postictal, no epileptiform or seizures recorded. The patient was actually started on Keppra. At this time I would recommend the following: - will continues Keppra 500 mg twice a day. -Will repeat an EEG as an outpatient. -The patient agreed to follow-up with me in neurology clinic, Jody Murillo, I will set up the appointment for the EEG and follow-up with me. -Please give the patient my phone number and my name to call if he has any problems. -[facility] if the patient has a breakthrough seizure. -I discussed with the patient that he should not be driving for 3 months or put himself in dangerous situations. Sary Aldana MD Code Status Full Code Reason for Consult Reason for consult: I was asked by Dr Simmons to evaluate this patient for seizures. Primary Care Physician [facility] Chief Complaint seizures History is obtained from the patient's and electronic health record History of Present Illness Jez Arechiga is a 63 year old male who presents with First-time seizure.The history was obtainedby talking to patient's who witnessed the events. About 4 AM on Tuesday morning heard the noise and turned to's find the patient unconscious with jerking movements in both upper extremities and making funny noises. The episode lasted for 2 minutes. The patient actually called 911 and they arrived about 20 minutes after the onset of the spell. In 2 minutes the spells stopped the patient however continued to be sleeping very profoundly making a lot of noise and snoring. When paramedics arrived the patient was talking but still confused. The patient was evaluated in the emergency room and around 10 AM he was discharged home. He was given some Benadryl and the patient was very sleepy. He took a nap for 2 hours however patient's noticed a second spell pretty much similar with the1 above. The patient was unconscious jerking movements, eyes were open. He was postictal after. Thepatient has no history of known seizure disorder. He is a drinker drinks about 2 to 4 ounces of drink at night. The patient does not smoke. He is disabled due to failed back. Past Medical History I have reviewed this patient's medical history and updated it with pertinent information if needed. Past Medical History: Diagnosis Date Crohn's disease (H) Thyroid disease Past Surgical History I have reviewed this patient's surgical history and updated it with pertinent information if needed. Past Surgical History: Procedure Laterality Date ORTHOPEDIC SURGERY Prior to Admission Medications Prior to Admission Medications Prescriptions Last Dose Informant Patient Reported? Taking? ARIPiprazole (ABILIFY) 2 MG tablet 03/18/2024 at am Yes Yes Sig: Take 2 mg by mouth daily. Cyanocobalamin (VITAMIN B 12 PO) 03/18/2024 at am Yes Yes Sig: Take 1,000 mcg by mouth daily Mirtazapine (REMERON PO) 03/17/2024 at pm Yes Yes Sig: Take 45 mg by mouth At Bedtime VITAMIN D, CHOLECALCIFEROL, PO 03/14/2024 at am Yes No Sig: Take 10,000 Units by mouth once a week. on Tuesday aspirin 81 MG EC tablet 03/18/2024 at am Yes Yes Sig: Take 81 mg by mouth daily. atorvastatin (LIPITOR) 20 MG tablet 03/18/2024 at am Yes Yes Sig: Take 20 mg by mouth daily. desvenlafaxine (PRISTIQ) 50 MG 24 hr tablet 03/18/2024 at am Yes Yes Sig: Take 50 mg by mouth daily. inFLIXimab (REMICADE IV) 03/08/2024 Yes Yes Sig: Inject 1,000 mg into the vein every 28 (twenty-eight) days. levothyroxine (SYNTHROID/LEVOTHROID) 200 MCG tablet 03/18/2024 at am Yes Yes Sig: Take 200 mcg by mouth daily. pregabalin (LYRICA) 100 MG capsule 03/18/2024 at am Yes Yes Sig: Take 100 mg by mouth 3 times daily. Facility-Administered Medications: None Allergies No Known Allergies Social History I have reviewed this patient's social history and updated it with pertinent information if needed. Jez Arechiga Family History I have reviewed this patient's family history and updated it with pertinent information if needed. History reviewed. No pertinent family history. Review of Systems The 10 point Review of Systems is negative other than noted in the HPI or here. Physical Exam Temp: 98.4 ??F (36.9 ??C) Temp src: Oral BP: 129/88 Pulse: 74 Resp: 18 SpO2: 95 % O2 Device: None (Room air) Vital Signs with Ranges Temp: [97.6 ??F (36.4 ??C)-98.4 ??F (36.9 ??C)] 98.4 ??F (36.9 ??C) Pulse: [67-90] 74 Resp: [11-20] 18 BP: (112-142)/(67-98) 129/88 SpO2: [94 %-98 %] 95 % 221 lbs 6.4 oz Constitutional: Normal Eyes: No conjunctival erythema ENT: Neck is supple Respiratory: CTA Cardiovascular: RRR Skin: No obvious lesions Musculoskeletal: No pedal edema The patient is alert oriented x3 no acute distress. Speech is fluent there is no aphasia apraxia oragnosia. Pupils are equal round reactive to light extraocular movements are intact, there is no nystagmus. Facial muscles are equal bilaterally. Uvula and tongue are midline. Muscular mass tone and strength are normal in all 4 extremities there is no pronator drift. Reflexes are present symmetric in upper and lower extremities. Babinski is absent. Sensory exam is normal to light touch and vibratory sense. Jylkiz-vsch-feasob isoe-cr-bdsq without dysmetria. Fine movements are normal. Gait has normal base. The patient is able to walk in tandem. Neuropsychiatric: Somewhat depressed Data Results for orders placed or performed during the hospital encounter of 03/18/24 (from the past 24 hour(s)) Asymptomatic Influenza A/B, RSV, & SARS-CoV2 PCR (COVID-19) Nasopharyngeal Specimen: Nasopharyngeal; Swab Result Value Ref Range Influenza A PCR Negative Negative Influenza B PCR Negative Negative RSV PCR Negative Negative SARS CoV2 PCR Negative Negative Narrative Testing was performed using the Xpert Xpress CoV2/Flu/RSV Assay on the [employer] GeneXpert Instrument. This test should be ordered for the detection of SARS- CoV2, influenza, and RSV viruses in individuals with signs and symptoms of respiratory tract infection. This test is for in vitro diagnostic useunder the [place] FDA for laboratories certified under CLIA to perform high or moderate complexity testing. This test has been [place] FDA cleared. A negative result does not rule out the presence of PCR inhibitors in the specimen or target RNA in concentration below the limit of detection for the assay. If only one viral target is positive but coinfection with multiple targets is suspected, the sample should be re-tested with another FDA cleared, approved, or authorized test, if coninfection would change clinical management. This test was validated by the [facility]. These laboratories are certified under the Clinical Laboratory Improvement Amendments of 1988 (CLIA-88) as qualified to perfom high complexity laboratory testing. MR Brain w/o & w Contrast Narrative EXAM: MR BRAIN W/O and W CONTRAST LOCATION: [facility] DATE: 03/18/2024 INDICATION: New-onset seizure of unclear etiology in a patient with history of prior lacunar infarcts COMPARISON: CT/CTA performed earlier today CONTRAST: 9 mL of Gadavist TECHNIQUE: Routine multiplanar multisequence head MRI without and with intravenous contrast. FINDINGS: INTRACRANIAL CONTENTS: No acute/subacute infarct, acute hemorrhage, or extra- axial fluid collection. Chronic small-vessel infarcts involving the bilateral basal ganglia, left thalamus, and bilateral cerebellar hemispheres (greater on the left). No intracranial mass or pathologic enhancement. 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 Several scattered additional foci of T2 prolongation within the bilateral cerebral white matter, nonspecific although most likely the sequela of mild chronic microvascular ischemia. Mild generalized cerebral parenchymal volume loss. No hydrocephalus. Normal position of the cerebellar tonsils. Incidental right-sided posterior fossa arachnoid cyst, of doubtful clinical significance. SELLA: Within technique limitations, no gross abnormality. OSSEOUS STRUCTURES/SOFT TISSUES: No suspicious bone marrow signal intensity. Susceptibility artifact from cervical ACDF at C4-C6. The major intracranial vascular flow voids are maintained. SINUSES/MASTOIDS: No evidence of significant paranasal sinus or mastoid mucosal disease. Impression IMPRESSION: 1. No acute intracranial abnormality. 2. Chronic changes, as described. UA with Microscopic reflex to Culture Specimen: Urine, Midstream Result Value Ref Range Color Urine Light Yellow Colorless, Straw, Light Yellow, Yellow Appearance Urine Clear Clear Glucose Urine Negative Negative mg/dL Bilirubin Urine Negative Negative Ketones Urine Negative Negative mg/dL Specific [place] Urine 1.028 1.003 - 1.035 Blood Urine Trace (A) Negative pH Urine 5.5 5.0 - 7.0 Protein Albumin Urine Negative Negative mg/dL Urobilinogen Urine Normal Normal, 2.0 mg/dL Nitrite Urine Negative Negative Leukocyte Esterase Urine Negative Negative Bacteria Urine Few (A) None Seen /HPF Mucus Urine Present (A) None Seen /LPF RBC Urine 1 <=2 /HPF WBC Urine 1 <=5 /HPF Squamous Epithelials Urine <1 <=1 /HPF Narrative Urine Culture not indicated Urine Drug Screen Narrative The following orders were created for panel order Urine Drug Screen. Procedure Abnormality Status --------- ------ Urine Drug Screen Panel[[id number]] Normal Final result Please view results for these tests on the individual orders. Urine Drug Screen Panel Result Value Ref Range Amphetamines Urine Screen Negative Screen Negative Barbituates Urine Screen Negative Screen Negative Benzodiazepine Urine Screen Negative Screen Negative Cannabinoids Urine Screen Negative Screen Negative Cocaine Urine Screen Negative Screen Negative Fentanyl Qual Urine Screen Negative Screen Negative Opiates Urine Screen Negative Screen Negative PCP Urine Screen Negative Screen Negative Potassium Result Value Ref Range Potassium 3.5 3.4 - 5.3 mmol/L Magnesium Result Value Ref Range Magnesium 1.9 1.7 - 2.3 mg/dL Phosphorus Result Value Ref Range Phosphorus 2.4 (L) 2.5 - 4.5 mg/dL Potassium Result Value Ref Range Potassium 3.9 3.4 - 5.3 mmol/L Magnesium Result Value Ref Range Magnesium 1.9 1.7 - 2.3 mg/dL Phosphorus Result Value Ref Range Phosphorus 2.2 (L) 2.5 - 4.5 mg/dL EEG Awake or Drowsy Routine Narrative EEG Awake or Drowsy Routine Result EEG DATE: 03/19/24 EEG LO180 EEG DAY#: 0 EEG SOURCE FILE DURATION: 30 minutes PATIENT INFORMATION: Jez Arechiga is a 63 year old year old male who presents with seizure. EEG is being done to evaluate for characterize seizure like spells. MEDICATIONS: no These medications and doses were derived from the medical record at the time of this procedure. TECHNICAL SUMMARY: This routine EEG was recorded from 23 scalp electrodes placed according to the 10-20 international system. Additional electrodes were used for referencing, EKG, and to record from other cerebral regions as appropriate. BACKGROUND ACTIVITY: During wakefulness, the background activity consists of synchronous and symmetric, well-modulated, 9 Hz posterior dominant rhythm. The posterior dominant rhythm attenuated with eye opening. During the recording there are episodes of generalized slowing. No epileptiform discharges or seizures recorded. ACTIVATION PROCEDURE: Photic stimulation produced no changes in the record. EKG was recorded and this shows a regular rhythm with a heart rate of 72/min. IMPRESSION: This electroencephalogram is mildly abnormal due to the presences of episodes of diffuse slowing. The EEG is suggestive of a mild diffuse brain dysfunction such as seen in mild encephalopathies, due to toxic metabolic or postictal causes. No seizures or epileptiform discharges recorded. Sary Aldana MD N Neurology The MRI of the head shows no acute changes. There is incidental developmental venous anomaly in theleft periatrial white matter and right frontal upper: As well as mild small vessel ischemic disease. No enhancement. Films were reviewed by me and agree with the report. documented in this encounter ED Notes * Luz Ruiz - 03/18/2024 4:54 PM CDT Pt. Stood at bedside with assist to use the urinal. Pt. Was able to urinate, a bit unsteady when sidestepping to get back in to bed, but otherwise did not complain of dizziness or lightheadedness, only cramping muscles in his back and weakness. Pt. Is now resting comfortably with family at bedside,call light is in reach, side rails x 2. * Kenisha Macias RN - 03/18/2024 4:40 PM CDT [facility] ED Nurse Handoff Report ED Chief complaint: Seizures . ED Diagnosis: Final diagnoses: New onset seizure (H) Allergies: No Known Allergies Code Status: Full Code Activity level - Baseline/Home: independent. Activity Level - Current: assist of 1. Lift room needed: No. Bariatric: No Boarding House Cook Needed: No Isolation: No. Infection: Not Applicable. Respiratory status: Room air Vital Signs (within 30 minutes): Vitals: 03/18/24 1534 03/18/24 1549 03/18/24 1604 03/18/24 1619 BP: (!) 143/83 135/81 (!) 139/91 132/89 Pulse: 81 80 74 80 Resp: 14 17 16 11 Temp: TempSrc: SpO2: Cardiac Rhythm: , Pain level: Patient confused: Yes, intermittent. Patient Falls Risk: nonskid shoes/slippers when out of bed, patient and family education, assistivedevice/personal items within reach, and room door open. Elimination Status: Unable to void Patient Report - Initial Complaint: Seizure. Focused Assessment: Jez Arechiga is a 63 year old male with a history of crohn's disease, hyperlipidemia, and hypothyroidism who presents to the ED with seizures. Patient presented to the ED earlier this morning for a seizure around 400 AM. ED workup showed no sign of aneurysm and the patient was discharged. The patient's reports they got home around 1000 and the patient took tylenol thenand was acting normal. She states the patient went to sleep and she went in to check on him and shesaw him have a second seizure with restless legs. The patient endorses confusion, headache, back pain, tongue bite, and urinary incontinence. He denies fever, infection, numbness/tingling, or currentnausea. The patient's notes the patient had nausea this morning but did not vomit. She denies history of traumatic brain injury. She notes there has been no noticeable change in the patient's behavior and he had no symptoms yesterday and has not had any notable changes in medication. She notesthe patient has Crohn's disease, vertigo while driving, recent vivid dreams, and had a fall a year ago with loss of consciousness and scrapes to the head. She states they followed up with a neurologist for the fall and the CAT scan was unremarkable. She notes the patient gets regular infusions and has intermittent Crohn's disease flare-ups. The patient notes he normally drinks a limited amount ofalcohol at night. Abnormal Results: Labs Ordered and Resulted from Time of ED Arrival to Time of ED Departure BASIC METABOLIC PANEL - Abnormal Result Value Sodium 139 Potassium 4.1 Chloride 108 (*) Carbon Dioxide (CO2) 20 (*) Anion Gap 11 Urea Nitrogen 19.4 Creatinine 1.04 GFR Estimate 80 Calcium 8.4 (*) Glucose 101 (*) CBC WITH PLATELETS AND DIFFERENTIAL - Abnormal WBC Count 11.4 (*) RBC Count 4.65 Hemoglobin 13.7 Hematocrit 42.1 MCV 91 MCH 29.5 MCHC 32.5 RDW 13.9 Platelet Count 198 % Neutrophils 75 % Lymphocytes 16 % Monocytes 8 % Eosinophils 0 % Basophils 0 % Immature Granulocytes 0 NRBCs per 100 WBC 0 Absolute Neutrophils 8.6 (*) Absolute Lymphocytes 1.9 Absolute Monocytes 0.9 Absolute Eosinophils 0.0 Absolute Basophils 0.0 Absolute Immature Granulocytes 0.1 Absolute NRBCs 0.0 No orders to display Treatments provided: labs, IVF, meds Family Comments: and daughters present at bedside OBS brochure/video discussed/provided to patient: Yes ED Medications: Medications levETIRAcetam (KEPPRA) intermittent infusion 1,500 mg (1,500 mg Intravenous $New Bag 03/18/24 1532) ketorolac (TORADOL) injection 15 mg (15 mg Intravenous $Given 03/18/24 1609) metoclopramide (REGLAN) injection 10 mg (10 mg Intravenous $Given 03/18/24 1610) diphenhydrAMINE (BENADRYL) injection 25 mg (25 mg Intravenous $Given 03/18/24 1604) sodium chloride 0.9% BOLUS 1,000 mL (1,000 mLs Intravenous $New Bag 03/18/24 7935) Drips infusing: No For the majority of the shift this patient was Green. Interventions performed were updated plan of care and interventions. Sepsis treatment initiated: No Cares/treatment/interventions/medications to be completed following ED care: admission orders ED Nurse Name: Hortencia Monge RN 4:40 PM RECEIVING UNIT ED HANDOFF REVIEW Above ED Nurse Handoff Report was reviewed: Yes Reviewed by: Kenisha Macias RN on March 18, 2024 at 8:57 PM Sharmin Up called the ED to inform them the note was read: No * Benny Gutierrez MD - 03/18/2024 3:01 PM CDT Emergency Department Note History of Present Illness Chief Complaint Seizures HPI Jez Arechiga is a 63 year old male with a history of crohn's disease, hyperlipidemia, and hypothyroidism who presents to the ED with seizures. Patient presented to the ED earlier this morning for a seizure around 400 AM. ED workup showed no sign of aneurysm and the patient was discharged. The patient's reports they got home around 1000 and the patient took tylenol then and was acting normal. She states the patient went to sleep and she went in to check on him and she saw him have a second seizure with restless legs. The patient endorses confusion, headache, back pain, tongue bite, andurinary incontinence. He denies fever, infection, numbness/tingling, or current nausea. The patient's notes the patient had nausea this morning but did not vomit. She denies history of traumaticbrain injury. She notes there has been no noticeable change in the patient's behavior and he had nosymptoms yesterday and has not had any notable changes in medication. She notes the patient has Crohn's disease, vertigo while driving, recent vivid dreams, and had a fall a year ago with loss of consciousness and scrapes to the head. She states they followed up with a neurologist for the fall and the CAT scan was unremarkable. She notes the patient gets regular infusions and has intermittent Crohn's disease flare-ups. The patient notes he normally drinks a limited amount of alcohol at night. Independent Historian as detailed above. Review of External Notes 01/14/23 note from [facility]. 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 Myelomalacia Nonmelanoma skin cancer PONV PTSD Primary osteoarthritis of left knee Regional enteritis Tear of medial meniscus of left knee, current Medications Azathioprine Levothyroxine Mirtazapine Prednisone Surgical History Cervical spine fusion Partial thyroidectomy Back surgery Partial colectomy Knee torn meniscus repair Tonsillectomy Revision lumbar decompression Hernia repair Lumbar spine stimulator placement Laser ablation of prostate Physical Exam Patient Vitals for the past 24 hrs: BP Temp Temp src Pulse Resp SpO2 03/18/24 1446 121/81 -- -- 86 18 94 % 03/18/24 1444 -- 97.8 ??F (36.6 ??C) Oral -- -- -- 03/18/24 1441 127/83 -- -- 91 -- 95 % Physical Exam Nursing note and vitals reviewed. HENT: Mouth/Throat: Moist mucous membranes. Eyes: nonicteric sclera Cardiovascular: Normal rate, regular rhythm, no murmurs, rubs, or gallops Pulmonary/Chest: Effort normal and breath sounds normal. No respiratory distress. No wheezes. No rales. Abdominal: Soft. Nontender, nondistended, no guarding or rigidity. Musculoskeletal: Normal range of motion. Neurological: Alert. Moves all extremities spontaneously. CN's II-XII intact. 5/5 BUE and BLE strength. PERRL EOMI with rightward beating nystagmus. Sensation intact to light touch. Negative pronator drift. Finger to nose intact. Skin: Skin is warm and dry. No rash noted. Diagnostics Lab Results Labs Ordered and Resulted from Time of ED Arrival to Time of ED Departure BASIC METABOLIC PANEL - Abnormal Result Value Sodium 139 Potassium 4.1 Chloride 108 (*) Carbon Dioxide (CO2) 20 (*) Anion Gap 11 Urea Nitrogen 19.4 Creatinine 1.04 GFR Estimate 80 Calcium 8.4 (*) Glucose 101 (*) CBC WITH PLATELETS AND DIFFERENTIAL - Abnormal WBC Count 11.4 (*) RBC Count 4.65 Hemoglobin 13.7 Hematocrit 42.1 MCV 91 MCH 29.5 MCHC 32.5 RDW 13.9 Platelet Count 198 % Neutrophils 75 % Lymphocytes 16 % Monocytes 8 % Eosinophils 0 % Basophils 0 % Immature Granulocytes 0 NRBCs per 100 WBC 0 Absolute Neutrophils 8.6 (*) Absolute Lymphocytes 1.9 Absolute Monocytes 0.9 Absolute Eosinophils 0.0 Absolute Basophils 0.0 Absolute Immature Granulocytes 0.1 Absolute NRBCs 0.0 PHOSPHORUS - Abnormal Phosphorus 1.5 (*) TSH WITH FREE T4 REFLEX - Normal TSH 0.96 MAGNESIUM - Normal Magnesium 1.9 ETHYL ALCOHOL LEVEL - Normal Alcohol ethyl <0.01 INFLUENZA A/B, RSV, & SARS-COV2 PCR ROUTINE UA WITH MICROSCOPIC REFLEX TO CULTURE Imaging Reviewed CT/CTA from earlier today. Independent Interpretation None ED Course Medications Administered Medications lidocaine 1 % 0.1-1 mL (has no administration in time range) lidocaine (LMX4) cream (has no administration in time range) sodium chloride (PF) 0.9% PF flush 3 mL (has no administration in time range) sodium chloride (PF) 0.9% PF flush 3 mL (has no administration in time range) senna-docusate (SENOKOT-S/PERICOLACE) 8.6-50 MG per tablet 1 tablet (has no administration in time range) Or senna-docusate (SENOKOT-S/PERICOLACE) 8.6-50 MG per tablet 2 tablet (has no administration in time range) sodium chloride 0.9 % infusion (has no administration in time range) acetaminophen (TYLENOL) tablet 650 mg (has no administration in time range) ondansetron (ZOFRAN ODT) ODT tab 4 mg (has no administration in time range) Or ondansetron (ZOFRAN) injection 4 mg (has no administration in time range) LORazepam (ATIVAN) injection 2 mg (has no administration in time range) levETIRAcetam (KEPPRA) intermittent infusion 1,500 mg (0 mg Intravenous Stopped 03/18/24 1608) ketorolac (TORADOL) injection 15 mg (15 mg Intravenous $Given 03/18/24 1609) metoclopramide (REGLAN) injection 10 mg (10 mg Intravenous $Given 03/18/24 1610) diphenhydrAMINE (BENADRYL) injection 25 mg (25 mg Intravenous $Given 03/18/24 1608) sodium chloride 0.9% BOLUS 1,000 mL (1,000 mLs Intravenous $New Bag 03/18/24 1608) Discussion of Management 1635 I spoke to Clara Sanchez PA-C, Hospitalist, who agreed to admit the patient on behalf of . Additional Documentation None Medical Decision Making / Diagnosis [facility] Diagnoses: None MIPS None MDM Jez Arechiga is a 63 year old male who presents with second seizure in less than 24 hours. He was seen earlier today and evaluated and subsequently discharged after negative imaging, normal labs, normal workup. He had second episode before arrival. He arrives mildly postictal, but improved. He has evidence of a tongue laceration and reports he was incontinent with both episodes. Neurologic exam is normal other than a rightward beating gaze nystagmus of uncertain significance. Patient does report frequent alcohol use, but he does not appear to be in withdrawal as he is not having any tremors, not hypertensive, not tachycardic. He is also not having fevers, nor is there any laboratory evidence of infection suggestive of meningitis/encephalitis. He did clear between episodes which is alsoreassuring against this. Suspect ongoing headache is postictal in nature and was treated as above. With new onset seizure and second episode in less than 24 hours, admission indicated for further eval uation and treatment. Discussed with hospitalist [facility] who accepts patient for admission. Patient and are in agreement with the plan. All questions answered. Disposition The patient was admitted to the hospital. Diagnosis ICD-10-CM 1. New onset seizure (H) R56.9 Scribe Disclosure: I, Vincent Saldivar, am serving as a scribe at 3:30 PM on 03/18/2024 to document services personally performed by Benny Gutierrez MD based on my observations and the provider's statements to me. Benny Gutierrez MD 03/18/24 0367 * Hortencia Monge RN - 03/18/2024 2:47 PM CDT Patient arrives via EMS from home where he had a witnessed (by his ) seizure while laying in bed that lasted approximately 2-3 minutes. Patient presents with mild confusion, disorientated to time. Patient was incontinent of urine. Patient was seen in this ER earlier today and discharged home with neurology consult. Patient's described that patient had more posturing with this seizure and once turned on his side had heavy breathing but was not alert during that time. Patient does confirm alcohol use, 4-6 oz of bourbon each day, last drink was last night. Denies anyseizure activity prior to today. Patient does have bite on tongue, patient states that was from this morning's episode. Triage Assessment (Adult) Row Name 03/18/24 1446 Triage Assessment Airway WDL WDL Respiratory WDL Respiratory WDL WDL Skin Circulation/Temperature WDL Skin Circulation/Temperature WDL WDL Cardiac WDL Cardiac WDL WDL Peripheral/Neurovascular WDL Peripheral Neurovascular WDL WDL Cognitive/Neuro/Behavioral WDL Cognitive/Neuro/Behavioral WDL X;orientation Level of Consciousness intermittent confusion Orientation disoriented to;time Mood/Behavior calm;cooperative * Lorena Mason RN - 03/18/2024 2:31 PM CDT Bed: [id number] Expected date: Expected time: Means of arrival: Comments: [id number] documented in this encounter Miscellaneous Notes * Plan of Care - Yvonne Ospina RN - 03/19/2024 6:54 PM CDT Shift: [id number] A&Ox4 VSS on RA Tele: SR Takes pills whole with water Complains of a headache, declined offer for tylenol states it did not help Activity: SBA Neuros intact Protocols: Mg, K+, phos rechecks in am. Mg and Phos replaced this shift Consults: neurology Plan to discharge home today Patient discharged home via private car, transported via wheelchair with volunteer services. Patient verbalized and received copy of discharge instructions. Personal belongings gathered and sent with patient. VSS. IV removed prior to discharge. Goal Outcome Evaluation: Plan of Care Reviewed With: patient Overall Patient Progress: improvingOverall Patient Progress: improving Outcome Evaluation: no seizure this shift, one keppra dose given second dose will not be given bc discharge pharmacy not open Problem: Adult Inpatient Plan of Care Goal: Plan of Care Review Description: The Plan of Care Review/Shift note should be completed every shift. The Outcome Evaluation is a brief statement about your assessment that the patient is improving, declining, or no change. This information will be displayed automatically on your shift note. Outcome: Progressing Flowsheets (Taken 03/19/2024 1853) Outcome Evaluation: no seizure this shift, one keppra dose given second dose will not be given bc discharge pharmacy not open Plan of Care Reviewed With: patient Overall Patient Progress: improving Goal: Patient-Specific Goal (Individualized) Description: You can add care plan individualizations to a care plan. Examples of Individualizationmight be: Parent requests to be called daily at 9am for status, I have a hard time hearing out of my right ear, or Do not touch me to wake me up as it startles me. Outcome: Progressing Goal: Absence of Hospital-Acquired Illness or Injury Outcome: Progressing Intervention: Identify and Manage Fall Risk Recent Flowsheet Documentation Taken 03/19/2024 0736 by Yvonne Ospina RN Safety Promotion/Fall Prevention: safety round/check completed Intervention: Prevent Skin Injury Recent Flowsheet Documentation Taken 03/19/2024 1409 by Yvonne Ospina RN Body Position: supine, head elevated Taken 03/19/2024 0736 by Yvonne Ospina RN Body Position: supine, head elevated Intervention: Prevent Infection Recent Flowsheet Documentation Taken 03/19/2024 0736 by Yvonne Ospina, RN Infection Prevention: equipment surfaces disinfected hand hygiene promoted Goal: Optimal Comfort and Wellbeing Outcome: Progressing Goal: Readiness for Transition of Care Outcome: Progressing Problem: Pain Acute Goal: Optimal Pain Control and Function Outcome: Progressing Intervention: Prevent or Manage Pain Recent Flowsheet Documentation Taken 03/19/2024 0736 by Yvonne Ospina nutrition representative Review/Management: medications reviewed Problem: Comorbidity Management Goal: Maintenance of Asthma Control Outcome: Progressing Intervention: Maintain Asthma Symptom Control Recent Flowsheet Documentation Taken 03/19/2024735 by Yvonne Ospina RN Medication Review/Management: medications reviewed Goal: Maintenance of Behavioral Health Symptom Control Outcome: Progressing Intervention: Maintain Behavioral Health Symptom Control Recent Flowsheet Documentation Taken 03/19/2024735 by Yvonne Ospina RN Medication Review/Management: medications reviewed Goal: Maintenance of COPD Symptom Control Outcome: Progressing Intervention: Maintain COPD Symptom Control Recent Flowsheet Documentation Taken 03/19/2024735 by Yvonne Ospina RN Medication Review/Management: medications reviewed Goal: Blood Glucose Levels Within Targeted Range Outcome: Progressing Intervention: Monitor and Manage Glycemia Recent Flowsheet Documentation Taken 03/19/2024735 by Yvonne Ospina RN Medication Review/Management: medications reviewed Goal: Maintenance of Heart Failure Symptom Control Outcome: Progressing Intervention: Maintain Heart Failure Management Recent Flowsheet Documentation Taken 03/19/2024735 by Yvonne Ospina RN Medication Review/Management: medications reviewed Goal: Blood Pressure in Desired Range Outcome: Progressing Intervention: Maintain Blood Pressure Management Recent Flowsheet Documentation Taken 03/19/2024735 by Yvonne Ospina RN Medication Review/Management: medications reviewed Goal: Maintenance of Osteoarthritis Symptom Control Outcome: Progressing Intervention: Maintain Osteoarthritis Symptom Control Recent Flowsheet Documentation Taken 03/19/2024735 by Yvonne Ospina RN Activity Management: activity adjusted per tolerance activity encouraged Medication Review/Management: medications reviewed Goal: Bariatric Home Regimen Maintained Outcome: Progressing Intervention: Maintain and Manage Postbariatric Surgery Care Recent Flowsheet Documentation Taken 03/19/2024735 by Yvonne Ospina RN Medication Review/Management: medications reviewed Goal: Maintenance of Seizure Control Outcome: Progressing Intervention: Maintain Seizure Symptom Control Recent Flowsheet Documentation Taken 03/19/2024735 by Yvonne Ospina RN Medication Review/Management: medications reviewed Problem: Alcohol Withdrawal Goal: Alcohol Withdrawal Symptom Control Outcome: Progressing Goal: Optimal Neurologic Function Outcome: Progressing Goal: Readiness for Change Identified Outcome: Progressing * Utilization Review - Tony Hernandez MD - 03/19/2024 12:56 PM CDT Admission Status; Secondary Review Determination Under the authority of the Utilization Management Committee, the utilization review process indicated a secondary review on the above patient. The review outcome is based on review of the medical records, discussions with staff, and applying clinical experience noted on the date of the review. (x) Observation Status Appropriate - This patient does not meet hospital inpatient criteria and is placed in observation status. If this patient's primary payer is Medicare and was admitted as an inpatient, Condition Code 44 should be used and patient status changed to observation. RATIONALE FOR DETERMINATION Jez Arechiga is a 63 year old male with a history of PTSD, Skin Cancer, Spinal Stenosis, Depression, Bowel Obstruction, Crohn's Disease, Hypothyroidism, CVA, and Regular Alcohol Use who presented to the ED today due to a Seizure. No history of recent trauma or prior seizures. CT of head was unremarkable. No signs of acute alcohol withdrawal. He was started on Keppra and admitted for further cares. Still no signs of withdrawal. EEG and Neurology consult are pending. Patient is anticipated to discharge home today. The severity of illness, intensity of service provided, expected LOS and risk for adverse outcome make the care appropriate for further observation; however, doesn't meet criteria for hospital inpatient admission. Dr Simmons was notified of this determination. This document was produced using voice recognition software. The information on this document is developed by the utilization review team in order for the business office to ensure compliance. This only denotes the appropriateness of proper admission status and does not reflect the quality of care rendered. The definitions of Inpatient Status and Observation Status used in making the determination above are those provided in the CMS Coverage Manual, Chapter 1 and Chapter 6, section 70.4. Sincerely, Tony Hernandez MD Utilization Review Physician Advisor [facility]. * Plan of Care - Kenisha Macias RN - 03/19/2024 5:49 AM CDT Care from [id number] Inpatient Progress Note - MS3 For vital signs and complete assessments, please see documentation flowsheets. ORIENTATION: A & O x 4 VS: stable PAIN: C/O 2/10 headache that radiates to upper inside of ear. PRN tylenol given O2: RA TELE: SR LS: Clear equally bilateral GI/: Continent uses urinal at bedside SKIN: No issues ACTIVITY: A1w/gb DIET: Regular LINES/DRAINS: PIV L AC NS @ 100 ml/hr PROTOCOLS: K+, Mag, Phos-replaced AM draws pending BG: None MAJOR SHIFT EVENT: No seizure activity. Seizure precautions in place. MRI completed. CT. Neurology consulted. at bedside. Did bite L side of tongue with sz PLAN: Continue to monitor for sz activity. Goal Outcome Evaluation: Plan of Care Reviewed With: patient & spouse Overall Patient Progress: no changeOverall Patient Progress: no change Problem: Adult Inpatient Plan of Care Goal: Plan of Care Review Description: The Plan of Care Review/Shift note should be completed every shift. The Outcome Evaluation is a brief statement about your assessment that the patient is improving, declining, or no change. This information will be displayed automatically on your shift note. Outcome: Progressing Flowsheets (Taken 03/19/2024 0596) Plan of Care Reviewed With: patient Overall Patient Progress: no change Goal: Patient-Specific Goal (Individualized) Description: You can add care plan individualizations to a care plan. Examples of Individualizationmight be: Parent requests to be called daily at 9am for status, I have a hard time hearing out of my right ear, or Do not touch me to wake me up as it startles me. Outcome: Progressing Goal: Absence of Hospital-Acquired Illness or Injury Outcome: Progressing Intervention: Identify and Manage Fall Risk Recent Flowsheet Documentation Taken 03/18/20242015 by Kenisha Macias RN Safety Promotion/Fall Prevention: safety round/check completed Intervention: Prevent Skin Injury Recent Flowsheet Documentation Taken 03/18/20242015 by Kenisha Macias RN Body Position: position changed independently Intervention: Prevent and Manage VTE (Venous Thromboembolism) Risk Recent Flowsheet Documentation Taken 03/18/20242015 by Kenisha Macias RN VTE Prevention/Management: SCDs off (sequential compression devices) Goal: Optimal Comfort and Wellbeing Outcome: Progressing Intervention: Monitor Pain and Promote Comfort Recent Flowsheet Documentation Taken 03/18/2024 223 by Kenisha Macias RNtank car inspector Interventions: medication (see MAR) Goal: Readiness for Transition of Care Outcome: Progressing Intervention: Mutually Develop Transition Plan Recent Flowsheet Documentation Taken 03/18/20242018 by Macias, Kenisha, RN Equipment Currently Used at Home: none * Pharmacy-Consult Note - Tyrell Mendez RPH - 03/18/2024 8:26 PM CDT Pharmacy consult Pharmacy was asked to review home medications that may be associated with increased seizure risk. Seizure risk, albeit low and rare, is mentioned in the package inserts and literature for aripiprazole (Abilify), desvenlafaxine (Pristiq), and mirtazapine (Remeron). Tyrell Mendez RPh March 18, 2024 * Pharmacy-Admission Medication History - Dallas Green RPH - 03/18/2024 6:53 PM CDT Pharmacist Admission Medication History Admission medication history is complete. The information provided in this note is only as accurateas the sources available at the time of the update. Information Source(s): Patient, Family member, Clinic records, Prescription bottles, and CareEverywhere/SureScripts via in-person Pertinent Information: none Changes made to PILL MACHINE OPERATOR medication list: Added: Abilify, atorvastatin, Pristiq, pregabalin, ASA, Remicade Deleted: Imuran, prednisone Changed: vitamin D dosing Allergies reviewed with patient and updates made in EHR: yes Medication History Completed By: Dallas Green RPH 03/18/2024 6:53 PM PILL MACHINE OPERATOR Med List Medication Sig Last Dose ARIPiprazole (ABILIFY) 2 MG tablet Take 2 mg by mouth daily. 03/18/2024 at am aspirin 81 MG EC tablet Take 81 mg by mouth daily. 03/18/2024 at am atorvastatin (LIPITOR) 20 MG tablet Take 20 mg by mouth daily. 03/18/2024 at am Cyanocobalamin (VITAMIN B 12 PO) Take 1,000 mcg by mouth daily 03/18/2024 at am desvenlafaxine (PRISTIQ) 50 MG 24 hr tablet Take 50 mg by mouth daily. 03/18/2024 at am inFLIXimab (REMICADE IV) Inject 1,000 mg into the vein every 28 (twenty-eight) days. 03/08/2024 Levothyroxine Sodium (SYNTHROID PO) Take 40 mcg by mouth 03/18/2024 at am Mirtazapine (REMERON PO) Take 45 mg by mouth At Bedtime 03/17/2024 at pm pregabalin (LYRICA) 100 MG capsule Take 100 mg by mouth 3 times daily. 03/18/2024 at am documented in this encounter Plan of Treatment Not on file documented as of this encounter Procedures Procedure Name Priority Date/Time Associated Diagnosis Comments EEG AWAKE OR DROWSY ROUTINE Routine 03/19/2024 1:43 PM CDT POTASSIUM Routine 03/19/2024 7:37 AM CDT PHOSPHORUS Routine 03/19/2024 7:37 AM CDT MAGNESIUM Routine 03/19/2024 7:37 AM CDT POTASSIUM Routine 03/18/2024 10:27 PM CDT PHOSPHORUS Routine 03/18/2024 10:27 PM CDT MAGNESIUM Routine 03/18/2024 10:27 PM CDT URINE DRUG SCREEN STAT 03/18/2024 8:0 7 PM CDT ROUTINE UA WITH MICROSCOPIC REFLEX TO CULTURE STAT 03/18/2024 8:07 PM CDT URINE DRUG SCREEN PANEL STAT 03/18/2024 8:07 PM CDT MR BRAIN W/O & W CONTRAST STAT 03/18/2024 7:44 PM CDT INFLUENZA A/B, RSV, & SARS-COV2 PCR STAT 03/18/2024 6:32 PM CDT CBC WITH PLATELETS AND DIFFERENTIAL STAT 03/18/2024 3:35 PM CDT CBC WITH PLATELETS & DIFFERENTIAL STAT 03/18/2024 3:35 PM CDT TSH WITH FREE T4 REFLEX Add-On 03/18/2024 3:35 PM CDT PHOSPHORUS Add-On 03/18/2024 3:35 PM CDT MAGNESIUM Add-On 03/18/2024 3:35 PM CDT ETHYL ALCOHOL LEVEL Add-On 03/18/2024 3 :35 PM CDT BASIC METABOLIC PANEL STAT 03/18/2024 3:35 PM CDT documented in this encounter Results * EEG Awake or Drowsy Routine (03/19/2024 1:43 PM CDT) Narrative [facility] - 03/19/2024 2:19 PM CDT EEG Awake or Drowsy Routine Result EEG DATE: 03/19/24 EEG LO EEG DAY#: 0 EEG SOURCE FILE DURATION: 30 minutes PATIENT INFORMATION: Jez Arechiga is a 63 year old year old male who presents with seizure. EEG is being done to evaluate for characterize seizure like spells. MEDICATIONS: no These medications and doses were derived from the medical record at the time of this procedure. TECHNICAL SUMMARY: This routine EEG was recorded from 23 scalp electrodes placed according to the 10-20 international system. Additional electrodes were used for referencing, EKG, and to record from other cerebral regions as appropriate. BACKGROUND ACTIVITY: ??During wakefulness, the background activity consists of synchronous and symmetric, well-modulated, 9 Hz posterior dominant rhythm. The posterior dominant rhythm attenuated with eye opening. During the recording there are episodes of generalized slowing. ??No epileptiform discharges or seizures recorded. ACTIVATION PROCEDURE: Photic stimulation produced no changes in the record. EKG was recorded and this shows a regular rhythm with a heart rate of 72/min. IMPRESSION: This electroencephalogram is mildly abnormal due to the presences of episodes of diffuse slowing. ??The EEG is suggestive of a mild diffuse brain dysfunction such as seen in mild encephalopathies, due to toxic metabolic or postictal causes. ??No seizures or epileptiform discharges recorded. Sary Aldana MD [facility] Neurology Clara Sanchez PA-C IMG EEG ORDERABLES Performing Organization Address [facility] Co de Phone Number [phone] * (ABNORMAL) Phosphorus (03/19/2024 7:37 AM CDT) Phosphorus 2.2(L) 2.5 - 4.5 mg/dL 03/19/2024 8:16 AM CDT LABORATORY Blood STRUCTURE OF RIGHT UPPER LIMB / Unknown Venipuncture / Unknown 03/19/2024 7:37 AM CDT 03/19/2024 7:55 AM CDT Mehdi Simmons MD LAB - BLO OD ORDERABLES Performing Organization Address [facility] [[email or web address]] de Phone Number [facility] Acute [facility] Lab [address] Lab (1st floor, no room number) [address] * Magnesium (03/19/2024 7:37 AM CDT) Pathologist [facility] Magnesium 1.9 1.7 - 2.3 mg/dL 03/19/2024 8:16 AM CDT LABORATORY Blood STRUCTURE OF RIGHT UPPER LIMB / Unknown Venipuncture / Unknown 03/19/2024 7:37 AM CDT 03/19/2024 7:55 AM CDT Mehdi Simmons MD LAB - BLO OD ORDERABLES Performing Organization Address [facility] [[email or web address]] de Phone Number [facility] Lab [address] Lab (1st floor, no room number) [place] [phone] [place] [address] * Potassium (03/19/2024 7:37 AM CDT) Potassium 3.9 3.4 - 5.3 mmol/L 03/19/2024 8:16 AM CDT [facility] Blood STRUCTURE OF RIGHT UPPER LIMB / Unknown Venipuncture / Unknown 03/19/2024 7:37 AM CDT 03/19/2024 7:55 AM CDT Mehdi Simmons MD LAB - BLO OD ORDERABLES [facility] [address] Lab (1st floor, no room number) [place] [address] * (ABNORMAL) Phosphorus (03/18/2024 10:27 PM CDT) Phosphorus 2.4(L) 2.5 - 4.5 mg/dL 03/18/2024 10:56 PM CDT [facility] Blood STRUCTURE OF RIGHT UPPER LIMB / Unknown Venipuncture / Unknown 03/18/2024 10:27 PM CDT 03/18/2024 10:35 PM CDT Jonathan Lynch DO LAB - BLOOD ORDERA BLES [facility] [address] Lab (1st floor, no room number) [place] [address], [facility] * Magnesium (03/18/2024 10:27 PM CDT) Magnesium 1.9 1.7 - 2.3 mg/dL 03/18/2024 10:56 PM CDT LABORATORY Blood STRUCTURE OF RIGHT UPPER LIMB / Unknown Venipuncture / Unknown 03/18/2024 10:27 PM CDT 03/18/2024 10:35 PM CDT Jonathan Lynch DO LAB - BLOOD ORDERA BLES [facility] Lab [address] Lab (1st floor, no room number) [place] [phone] * Potassium (03/18/2024 10:27 PM CDT) Potassium 3.5 3.4 - 5.3 mmol/L 03/18/2024 10:56 PM CDT [facility] Blood STRUCTURE OF RIGHT UPPER LIMB / Unknown Venipuncture / Unknown 03/18/2024 10:27 PM CDT 03/18/2024 10:35 PM CDT Jonathan Lynch DO LAB - BLOOD ORDERA BLES [facility] Lab [address] [facility] Lab (1st floor, no room number) [place] [phone] * Urine Drug Screen Panel (03/18/2024 8:07 PM CDT) Amphetamines Urine Screen Negative Screen Negative 03/18/2024 8:35 PM CDT [facility] Comment:Cutoff for a negativ e amphetamine is less than 500 ng/mL. Barbituates Urine Screen Negative Screen Negative 03/18/2024 8:35 PM CDT [facility] Comment:Cutoff for a negativ e barbiturate is less than 200 ng/mL. Benzodiazepine Urine Screen Negative Screen Negative 03/18/2024 8:35 PM CDT [facility] Comment:Cutoff for a negativ e benzodiazepine is less than 100 ng/mL. Cannabinoids Urine Screen Negative Screen Negative 03/18/2024 8:35 PM CDT [facility] Comment:Cutoff for a negativ e cannabinoid is less than 50 ng/mL. Cocaine Urine Screen Negative Screen Negative 03/18/2024 8:35 PM CDT [facility] Comment:Cutoff for a negativ e cocaine is less than 300 ng/mL. Fentanyl Qual Urine Screen Negative Screen Negative 03/18/2024 8:35 PM CDT [facility] Comment:Cutoff for negative fentanyl is less than 5 ng/mL. Opiates Urine Screen Negative Screen Negative 03/18/2024 8:35 PM CDT [facility] Comment:Cutoff for a negativ e opiate is less than 300 ng/mL. PCP Urine Screen Negative Screen Negative 03/18/2024 8:35 PM CDT [facility] Comment:Cutoff for a negativ e PCP is less than 25 ng/mL. Urine MID-STREAM URINE SPECIMEN / Unknown Non-blood Collection / Unknown 03/18/2024 8:07 PM CDT 03/18/2024 8:11 PM CDT Clara Sanchez PA-C LAB - URINE ORDERA BLES LABORATORY [facility] [address] [facility] Lab (1st floor, no room number) [place] [address] * (ABNORMAL) UA with Microscopic reflex to Culture (03/18/2024 8:07 PM CDT) Color Urine Light Yellow Colorless, Straw, Light Yellow, Yellow 03/18/2024 8:18 PM CDT LABORATORY Appearance Urine Clear Clear 03/18/20 24 8:18 PM CDT LABORATORY Glucose Urine Negative Negative mg/dL 03/18/2024 8:18 PM CDT LABORATORY Bilirubin Urine Negative Negative 8:18 PM CDT LABORATORY Ketones Urine Negative Negative mg/dL 03/18/2024 8:18 PM CDT LABORATORY Specific [place] Urine 1.028 1.003 - 1.035 03/18/2024 8:18 PM CDT LABORATORY Blood Urine Trace(A) Negative 03/18/2024 8:18 PM CDT LABORATORY pH Urine 5.5 5.0 - 7.0 03/18/2024 8:18 PM CDT LABORATORY Protein Albumin Urine Negative Negative mg/dL 03/18/2024 8:18 PM CDT LABORATORY Urobilinogen Urine Normal Normal, 2.0 mg/dL 03/18/2024 8:18 PM CDT LABORATORY Nitrite Urine Negative Negative 03/18/2024 8:18 PM CDT [facility] Leukocyte Esterase Urine Negative Negative 03/18/2024 8:18 PM CDT [facility] Bacteria Urine Few(A) None Seen /HPF 03/18/2024 8:18 PM CDT LABORATORY Mucus Urine Present(A) None Seen /LPF 03/18/2024 8:18 PM CDT LABORATORY RBC Urine 1 <=2 /HPF 03/18/2024 8:18 PM CDT LABORATORY WBC Urine 1 <=5 /HPF 03/18/2024 8:18 PM CDT LABORATORY Squamous Epithelials Urine <1 <=1 /HPF 03/18/2024 8:18 PM CDT LABORATORY Urine MID-STREAM URINE SPECIMEN / Unknown Non-blood Collection / Unknown 03/18/2024 8:07 PM CDT 03/18/2024 8:11 PM CDT Narrative LABORATORY - 03/18/2024 8:18 PM CDT Urine Culture not indicated Clara Sanchez PA-C LAB - URINE ORDERA BLES LABORATORY [facility] [address] [facility] Lab (1st floor, no room number) [place] [address] * MR Brain w/o & w Contrast (03/18/2024 7:44 PM CDT) Anatomical Region Laterality Modality Head, SUBRAD MR NEURO, UMP MR NEURO, RAD MR Magnetic Resonance 03/18/2024 7:44 PM CDT Impressions 03/18/2024 7:51 PM CDT IMPRESSION: 1. ??No acute intracranial abnormality. 2. ??Chronic changes, as described. Narrative 03/18/2024 7:51 PM CDT EXAM: MR BRAIN W/O and W CONTRAST LOCATION: [facility] DATE: 03/18/2024 INDICATION: New-onset seizure of unclear etiology in a patient with history of prior lacunar infarcts COMPARISON: CT/CTA performed earlier today CONTRAST: 9 mL of Gadavist TECHNIQUE: Routine multiplanar multisequence head MRI without and with intravenous contrast. FINDINGS: INTRACRANIAL CONTENTS: No acute/subacute infarct, acute hemorrhage, or extra- axial fluid collection. Chronic small-vessel infarcts involving the bilateral basal ganglia, left thalamus, and bilateral cerebellar hemispheres (greater on the left). No intracranial mass or pathologic enhancement. 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 Several scattered additional foci of T2 prolongation within the bilateral cerebral white matter, nonspecific although most likely the sequela of mild chronic microvascular ischemia. Mild generalized cerebral parenchymal volume loss. No hydrocephalus. Normal position of the cerebellar tonsils. Incidental right-sided posterior fossa arachnoid cyst, of doubtful clinical significance. SELLA: Within technique limitations, no gross abnormality. OSSEOUS STRUCTURES/SOFT TISSUES: No suspicious bone marrow signal intensity. Susceptibility artifact from cervical ACDF at C4-C6. The major intracranial vascular flow voids are maintained. SINUSES/MASTOIDS: No evidence of significant paranasal sinus or mastoid mucosal disease. ?? Procedure Note Best Lainez MD - 03/18/2024 EXAM: MR BRAIN W/O and W CONTRAST LOCATION: [facility] DATE: 03/18/2024 INDICATION: New-onset seizure of unclear etiology in a patient withhistory of prior lacunar infarcts COMPARISON: CT/CTA performed earlier today CONTRAST: 9 mL of Gadavist TECHNIQUE: Routine multiplanar multisequence head MRI without and withintravenous contrast. FINDINGS: INTRACRANIAL CONTENTS: No acute/subacute infarct, acute hemorrhage, orextra- axial fluid collection. Chronic small-vessel infarcts involving thebilateral basal ganglia, left thalamus, and bilateral cerebellarhemispheres (greater on the left). No intracranial mass or pathologic enhancement. Incidental developmentalvenous anomalies within the left periatrial white matter and right frontaloperculum. Several scattered additional foci of T2 prolongation within thebilateral cerebral white matter, nonspecific although most likely the sequela of mild chronic microvascularischemia. Mild generalized cerebral parenchymal volume loss. Nohydrocephalus. Normal position of the cerebellar tonsils. Incidentalright-sided posterior fossa arachnoid cyst, of doubtful clinical significance. SELLA: Within technique limitations, no gross abnormality. OSSEOUS STRUCTURES/SOFT TISSUES: No suspicious bone marrow signalintensity. Susceptibility artifact from cervical ACDF at C4-C6. The majorintracranial vascular flow voids are maintained. SINUSES/MASTOIDS: No evidence of significant paranasal sinus or mastoidmucosal disease. IMPRESSION: 1. No acute intracranial abnormality. 2. Chronic changes, as described. Clara Sanchez PA-C IM MRI ORDERABLES * Asymptomatic Influenza A/B, RSV, & SARS-CoV2 PCR (COVID-19) Nasopharyngeal (03/18/2024 6:32 PM CDT) Influenza A PCR Negative Negative 03/18/2024 7:43 PM CDT [facility] Influenza B PCR Negative Negative 03/18/2024 7:43 PM CDT [facility] RSV PCR Negative Negative 03/18/2024 7:43 PM CDT [facility] SARS CoV2 PCR Negative Negative 03/18/2024 7:43 PM CDT [facility] Comment:NEGATIVE: SARS-CoV-2 (COVID-19) RNA not detected, presumed negative. Swab NASOPHARYNGEAL STRUCTURE / Unknown Non-blood Collection / Unknown 03/18/2024 6:32 PM CDT 03/18/2024 6:38 PM CDT Narrative [facility] - 03/18/2024 7:43 PM CDT Testing was performed using the Xpert Xpress CoV2/Flu/RSV Assay on the [employer] GeneXpert Instrument. This test should be ordered for the detection of SARS- CoV2, influenza, and RSV viruses in individuals with signs and symptoms of respiratory tract infection. This test is for in vitro diagnostic use under the [place] FDA for laboratories certified under CLIA to perform high or moderate complexity testing. This test has been [place] FDA cleared. A negative result does not rule out the presence of PCR inhibitors in the specimen or target RNA in concentration below the limit of detection for the assay. If only one viral target is positive but coinfection with multiple targets is suspected, the sample should be re-tested with another FDA cleared, approved, or authorized test, if coninfection would change clinical management. This test was validated by the [facility] [employer]. These laboratories are certified under the Clinical Laboratory Improvement Amendments of 1988 (CLIA-88) as qualified to perfom high complexity laboratory testing. Clara Sanchez PA-C LAB - MICRO GENERA L ORDERABLES LABORATORY [facility] [address] [facility] Lab (1st floor, no room number) [place] [address], [facility] * Alcohol ethyl (03/18/2024 3:35 PM CDT) Pathologist [facility] Alcohol ethyl <0.01 <=0.01 g/dL 03/18/2024 5:16 PM CDT [facility] Blood BLOOD SPECIMEN / Unknown Venipuncture / Unknown 03/18/2024 3:35 PM CDT 03/18/2024 3:54 PM CDT Clara JOHNSTONC LAB - BLOOD ORDERA BLES LABORATORY [facility] [address] Lab (1st floor, no room number) [place] [phone] [place] [address] * (ABNORMAL) Phosphorus (03/18/2024 3:35 PM CDT) Phosphorus 1.5(L) 2.5 - 4.5 mg/dL 03/18/2024 5:16 PM CDT [facility] Blood BLOOD SPECIMEN / Unknown Venipuncture / Unknown 03/18/2024 3:35 PM CDT 03/18/2024 3:54 PM CDT Clara BAEZ-C LAB - BLOOD ORDERA BLES Performing Organization Address City/[facility]/ZIP Co de Phone Number [facility] [address] Lab (1st floor, no room number) [place] [phone] [place] [address] * Magnesium (03/18/2024 3:35 PM CDT) Magnesium 1.9 1.7 - 2.3 mg/dL 03/18/2024 5:16 PM CDT [facility] Blood BLOOD SPECIMEN / Unknown Venipuncture / Unknown 03/18/2024 3:35 PM CDT 03/18/2024 3:54 PM CDT Clara BAEZ-C LAB - BLOOD ORDERA BLES LABORATORY [facility] [address] Lab (1st floor, no room number) [place] [phone] * TSH with free T4 reflex (03/18/2024 3:35 PM CDT) TSH 0.96 0.30 - 4.20 uIU/mL 03/18/2024 5:25 PM CDT [facility] Blood BLOOD SPECIMEN / Unknown Venipuncture / Unknown 03/18/2024 3:35 PM CDT 03/18/2024 3:54 PM CDT Clara Sanchez PA-C LAB - BLOOD ORDERA BLES [facility] [address] Lab (1st floor, no room number) [place] [address], [facility] * (ABNORMAL) CBC with platelets and differential (03/18/2024 3:35 PM CDT) Pathologist [facility] WBC Count 11.4(H) 4.0 - 11.0 10e3/uL 03/18/2024 3:57 PM CDT [facility] RBC Count 4.65 4.40 - 5.90 10e6/uL 03/18/2024 3:57 PM CDT [facility] Hemoglobin 13.7 13.3 - 17.7 g/dL 03/18/2024 3:57 PM CDT [facility] Hematocrit 42.1 40.0 - 53.0 % 03/18/2024 3:57 PM CDT [facility] MCV 91 78 - 100 fL 03/18/2024 3:57 PM CDT [facility] MCH 29.5 26.5 - 33.0 pg 03/18/2024 3:57 PM CDT [facility] MCHC 32.5 31.5 - 36.5 g/dL 03/18/2024 3:57 PM CDT [facility] RDW 13.9 10.0 - 15.0 % 03/18/2024 3:57 PM CDT [facility] Platelet Count 198 150 - 450 10e3/uL 03/18/2024 3:57 PM CDT [facility] % Neutrophils 75 % 03/18/2024 3:57 PM CDT [facility] % Lymphocytes 16 % 03/18/2024 3:57 PM CDT [facility] % Monocytes 8 % 03/18/2024 3:57 PM CDT [facility] % Eosinophils 0 % 03/18/2024 3:57 PM CDT [facility] % Basophils 0 % 03/18/2024 3:57 PM CDT [facility] % Immature Granulocytes 0 % 03/18/2024 3:57 PM CDT [facility] NRBCs per 100 WBC 0 <1 /100 024 3:57 PM CDT [facility] Absolute Neutrophils 8.6(H) 1.6 - 8.3 10e3/uL 03/18/2024 3:57 PM CDT [facility] Absolute Lymphocytes 1.9 0.8 - 5.3 10e3/uL 03/18/2024 3:57 PM CDT [facility] Absolute Monocytes 0.9 0.0 - 1.3 10e3/uL 03/18/2024 3:57 PM CDT [facility] Absolute Eosinophils 0.0 0.0 - 0.7 10e3/uL 03/18/2024 3:57 PM CDT [facility] Absolute Basophils 0.0 0.0 - 0.2 10e3/uL 03/18/2024 3:57 PM CDT [facility] Absolute Immature Granulocytes 0.1 <=0.4 10e3/uL 03/18/2024 3:57 PM CDT [facility] Absolute NRBCs 0.0 10e3/uL 03/18/2024 3:57 PM CDT [facility] Blood BLOOD SPECIMEN / Unknown Venipuncture / Unknown 03/18/2024 3:35 PM CDT 03/18/2024 3:54 PM CDT Benny Gutierrez MD LAB - BLOOD ORDER CHASE [facility] [address] [facility] Lab (1st floor, no room number) [place] [address], [facility] * (ABNORMAL) Basic metabolic panel (BMP) (03/18/2024 3:35 PM CDT) Sodium 139 135 - 145 mmol/L 03/18/2024 4:21 PM CDT [facility] Potassium 4.1 3.4 - 5.3 mmol/L 03/18/2024 4:21 PM CDT [facility] Chloride 108(H) 98 - 107 mmol/L 03/18/2024 4:21 PM CDT LABORATORY Carbon Dioxide (CO2) 20(L) 22 - 29 mmol/L 03/18/2024 4:21 PM CDT LABORATORY Anion Gap 11 7 - 15 mmol/L 03/18/2024 4:21 PM CDT LABORATORY Urea Nitrogen 19.4 8.0 - 23.0 mg/dL 03/18/2024 4:21 PM CDT LABORATORY Creatinine 1.04 0.67 - 1.17 mg/dL 03/18/2024 4:21 PM CDT LABORATORY GFR Estimate 80 >60 mL/min/1.7 3m2 03/18/2024 4:21 PM CDT LABORATORY Comment:eGFR calculated us2020 CKD-EPI equation. Calcium 8.4(L) 8.8 - 10.4 mg/dL 03/18/2024 4:21 PM CDT LABORATORY Comment:Reference intervals for this test were updated on 01/17/2024 to reflect our healthy population more accurately. There may be differences in the flagging of prior results with similar values performed with this method. Those prior results can be interpreted in the context of the updated reference intervals. Glucose 101(H) 70 - 99 mg/dL 03/18/2024 4:21 PM CDT LABORATORY Blood BLOOD SPECIMEN / Unknown Venipuncture / Unknown 03/18/2024 3:35 PM CDT 03/18/2024 3:54 PM CDT Benny Gutierrez MD LAB - BLOOD ORDER CHASE LABORATORY [facility] [address] [facility] Lab (1st floor, no room number) [place] [address] documented in this encounter Visit Diagnoses Diagnosis New onset seizure (H) Other convulsions New onset seizure (H) Other convulsions documented in this encounter Administered Medications Inactive Administered Medications - up to 3 most recent administrations Medication Order MAR Action Action Date Dose Rate Site acetaminophen (TYLENOL) tablet 650 mg 650 mg, Oral, EVERY 4 HOURS PRN, mild pain, other, and adjunct with moderate or severe pain or per patient request, Starting on 03/18/24 at 1730, Alternate with ibuprofen if ordered. Maximum acetaminophen dose from all sources = 75 mg/kg/day not to exceed 4 grams/day. $Given 03/19/2024 5:41 AM CDT 650 mg $Given 03/18/2024 10:35 PM CDT 650 mg aspirin EC tablet 81 mg 81 mg, Oral, DAILY, First dose on Tue03/19/24 at 0800, DO NOT CRUSH. $Given 03/19/2024 7:55 AM CDT 81 mg atorvastatin (LIPITOR) tablet 20 mg 20 mg, Oral, DAILY, First dose on Tue03/19/24 at 0800 $Given 03/19/2024 7:55 AM CDT 20 mg diphenhydrAMINE (BENADRYL) injection 25 mg 25 mg, Intravenous, ONCE, On 03/18/24 at 1535, For 1 dose $Given 03/18/2024 4:08 PM CDT 25 mg gadobutrol (GADAVIST) injection 9 mL 9 mL, Intravenous, ONCE, On Tue03/18/24 at 1905, For 1 dose, Supplied by, and administered by MRI. $Given 03/18/2024 7:16 PM CDT 9 mLs ketorolac (TORADOL) injection 15 mg 15 mg, Intravenous, ONCE, On 03/18/24 at 1535, For 1 dose, Can cause pain on injection. If ordered intravenously (IV) : administer through a running maintenance fluid over 1 minute followed by a flush. If patient complains of pain on injection, may dilute 15-30 mg in 5 mL and push over 1 to 2 minutes. $Given 03/18/2024 4:09 PM CDT 15 mg levETIRAcetam (KEPPRA) intermittent infusion 1,500 mg 1,500 mg, Intravenous, Administer over 15 Minutes, ONCE, On 03/18/24 at 1505, For 1 dose $New Bag 03/18/2024 3:35 PM CDT 1,500 mg levETIRAcetam (KEPPRA) tablet 500 mg 500 mg, Oral, 2 TIMES DAILY, First dose on Tue03/19/24 at 1300 $Given 03/19/2024 2:05 PM CDT 500 mg levothyroxine (SYNTHROID/LEVOTHROID) tablet 200 mcg 200 mcg, Oral, EVERY MORNING BEFORE BREAKFAST, First dose on Tue03/19/24 at 0730 $Given 03/19/2024 6:46 AM CDT 200 mcg LORazepam (ATIVAN) injection 2 mg 2 mg, Intravenous, ONCE PRN, seizures, seizure lasting more than one minute. May repeat once if seizure activity is still present 3 minutes after the initial dose., Starting on Tue03/18/24 at 1736, For 1 dose, IV Route: Dilute with equal volume NS prior to use. This drug may cause significant respiratory depression. Monitor respiratory status and vital signs carefully for 1 hour after each dose. magnesium oxide (MAG-OX) tablet 400 mg 400 mg, Oral, EVERY 4 HOURS, First dose on Tue03/19/24 at 0000, For 2 doses, Avoid using oral magnesium if patient has current diarrhea. Magnesium level 1.6-2 mg/dL Administer 400 mg ORAL magnesium x 2 doses and recheck magnesium level the AM after the last ORAL dose. Ordered from the Magnesium replacement order set., Magnesium Replacement: Magnesium level 1.6-2 mg/dL, Recheck: Magnesium level next AM $Given 03/19/2024 4:07 AM CDT 400 mg $Given 03/19/2024 12:06 AM CDT 400 mg magnesium oxide (MAG-OX) tablet 400 mg 400 mg, Oral, EVERY 4 HOURS, First dose on Tue03/19/24 at 0900, For 2 doses, Avoid using oral magnesium if patient has current diarrhea. Magnesium level 1.6-2 mg/dL Administer 400 mg ORAL magnesium x 2 doses and recheck magnesium level the AM after the last ORAL dose. Ordered from the Magnesium replacement order set., Magnesium Replacement: Magnesium level 1.6-2 mg/dL, Recheck: Magnesium level next AM $Given 03/19/2024 2:05 PM CDT 400 mg $Given 03/19/2024 9:02 AM CDT 400 mg metoclopramide (REGLAN) injection 10 mg 10 mg, Intravenous, Administer over 2 Minutes, ONCE, On Tue03/18/24 at 1535, For 1 dose, Avoid use if patient has full bowel obstruction or perforation. $Given 03/18/2024 4:10 PM CDT 10 mg ondansetron (ZOFRAN ODT) ODT tab 4 mg 4 mg, Oral, EVERY 6 HOURS PRN, nausea, vomiting, Starting on Tue03/18/24 at 1730, This is Step 1 of nausea and vomiting management. If nausea not resolved in 15 minutes, go to Step 2 prochlorperazine (COMPAZINE). With dry hands, peel back foil backing and gently remove tablet. Do not push oral disintegrating tablet through foil backing. Administer immediately on tongue and oral disintegrating tablet dissolves in seconds, then swallow with saliva. Liquid not required. ondansetron (ZOFRAN) injection 4 mg 4 mg, Intravenous, EVERY 6 HOURS PRN, nausea, vomiting, Administer over 2-5 Minutes, Starting on Tue03/18/24 at 1730, Give IF patient unable to tolerate oral medication. This is Step 1 of nausea and vomiting management. If nausea not resolved in 15 minutes, go to Step 2 prochlorperazine (COMPAZINE). potassium & sodium phosphates (NEUTRA-PHOS) Packet 1 packet 1 packet, Oral or Feeding Tube, EVERY 4 HOURS, First dose on Tue03/19/24 at 0000, For 3 doses, Phosphorus level 2-2.4 mg/dL Administer 1 packet of oral or feeding tubephosphorus replacement x 3 doses and recheck phosphorus level next AM. Ordered from the Phosphorus replacement order set., Phosphorus Replacement: Phosphorus level 2-2.4 mg/dL and Creatinine Clearance GREATER than or EQUAL to 30 mL/min, Recheck: Phosphorus level next AM $Given 03/19/2024 7:55 AM CDT 1 packet $Given 03/19/2024 4:06 AM CDT 1 packet $Given 03/19/2024 12:07 AM CDT 1 packet potassium & sodium phosphates (NEUTRA-PHOS) Packet 1 packet 1 packet, Oral or Feeding Tube, EVERY 4 HOURS, First dose on Tue03/19/24 at 0900, For 3 doses, Phosphorus level 2-2.4 mg/dL Administer 1 packet of oral or feeding tubephosphorus replacement x 3 doses and recheck phosphorus level next AM. Ordered from the Phosphorus replacement order set., Phosphorus Replacement: Phosphorus level 2-2.4 mg/dL and Creatinine Clearance GREATER than or EQUAL to 30 mL/min, Recheck: Phosphorus level next AM $Given 03/19/2024 4:32 PM CDT 1 packet $Given 03/19/2024 2:05 PM CDT 1 packet $Given 03/19/2024 9:02 AM CDT 1 packet potassium chloride makeda ER (KLOR-CON M20) CR tablet 20 mEq 20 mEq, Oral, ONCE, On 03/19/24 at 0000, For 1 dose, Potassium level 3.5-3.8 mmol/L Ordered from the Potassium replacement order set. DO NOT CRUSH, Potassium Replacement: Potassium level 3.5-3.8 mmol/L, Recheck: Potassium level next AM $Given 03/19/2024 12:06 AM CDT 20 mEq senna-docusate (SENOKOT-S/PERICOLACE) 8.6-50 MG per tablet 1 tablet 1 tablet, Oral, 2 TIMES DAILY PRN, constipation, Starting on 03/18/24 at 1730, If no bowel movement in 24 hours, increase to 2 tablets by mouth. IF more than 1 constipation PRN medication is ordered, administer step-sosa as indicated, moving to the next step ONLY if prior step ineffective. Step 1: senna-docusate (SENOKOT-S; PERICOLACE) OR bisacodyl (DULCOLAX) EC tablet Step 2: polyethylene glycol (MIRALAX/GLYCOLAX) Step 3: bisacodyl (DULCOLAX) suppository Step 4: enema Hold for loose stools. senna-docusate (SENOKOT-S/PERICOLACE) 8.6-50 MG per tablet 2 tablet 2 tablet, Oral, 2 TIMES DAILY PRN, constipation, Starting on 03/18/24 at 1730, IF more than 1 constipation PRN medication is ordered, administer step-sosa as indicated, moving to the next step ONLY if prior step ineffective. Step 1: senna-docusate (SENOKOT-S; PERICOLACE) OR bisacodyl (DULCOLAX) EC tablet Step 2: polyethylene glycol (MIRALAX/GLYCOLAX) Step 3: bisacodyl (DULCOLAX) suppository Step 4: enema Hold for loose stools. sodium chloride (PF) 0.9% PF flush 3 mL 3 mL, Intracatheter, EVERY 8 HOURS, First dose on 03/18/24 at 1735, to lock peripheral IV dormant line $Given 03/19/2024 4:36 PM CDT 3 mLs $Given 03/19/2024 9:06 AM CDT 3 mLs sodium chloride 0.9 % infusion at 100 mL/hr, Intravenous, CONTINUOUS, Starting on Tue03/18/24 at 1735, Until Tue03/19/24 at 0334 $New Bag 03/18/2024 10:37 PM CDT 100 mL/hr 100 mL/hr sodium chloride 0.9% BOLUS 1,000 mL Intravenous, 1,000 mL, ONCE, at 2,000 mL/hr, Administer over 30 Minutes, On Tue03/18/24 at 1535, For 1 dose $New Bag 03/18/2024 4:08 PM CDT 1,000 mLs 2000 mL/hr documented in this encounter Active and Recently Administered Medications Times are shown in CDT. Scheduled Medication Order 03/17/2024 03/18/2024 03/19/2024 aspirin EC tablet 81 mg 81 mg, Oral, DAILY, First dose on Tue03/19/24 at 0800, DO NOT CRUSH. 0755 ($Given - Provi jersey: Yvonne Ospina RN) atorvastatin (LIPITOR) tablet 20 mg 20 mg, Oral, DAILY, First dose on Tue03/19/24 at 0800 0755 ($Given - Provi jersey: Yvonne Ospina RN) diphenhydrAMINE (BENADRYL) injection 25 mg (COMPLETED) 25 mg, Intravenous, ONCE, On Tue03/18/24 at 1535, For 1 dose 1608 ($Given - Provider: Hortencia Monge RN) gadobutrol (GADAVIST) injection 9 mL (COMPLETED) 9 mL, Intravenous, ONCE, On Tue03/18/24 at 1905, For 1 dose, Supplied by, and administered by MRI. 1916 ($Given - Provider: Julien Barnard) ketorolac (TORADOL) injection 15 mg (COMPLETED) 15 mg, Intravenous, ONCE, On [place] 03/18/24 at 1535, For 1 dose, Can cause pain on injection. If ordered intravenously (IV) : administer through a running maintenance fluid over 1 minute followed by a flush. If patient complains of pain on injection, may dilute 15-30 mg in 5 mL and push over 1 to 2 minutes. 1609 ($Given - Provider: Hortencia Monge RN) levETIRAcetam (KEPPRA) intermittent infusion 1,500 mg (COMPLETED) 1,500 mg, Intravenous, Administer over 15 Minutes, ONCE, On Tue03/18/24 at 1505, For 1 dose 1535 ($New Bag - Provider: Hortencia Monge RN)1608 (Stopped - Provider: Hortencia Monge RN) levETIRAcetam (KEPPRA) tablet 500 mg 500 mg, Oral, 2 TIMES DAILY, First dose on Tue03/19/24 at 1300 1405 ($Given - Provi jersey: Yvonne Ospina RN)2100 (Canceled Entry - Provider: Orders Generic Provider - Comment: Automatically canceled at discontinue of medication order) levothyroxine (SYNTHROID/LEVOTHROID) tablet 200 mcg 200 mcg, Oral, EVERY MORNING BEFORE BREAKFAST, First dose on Tue03/19/24 at 0730 0646 ($Given - Provi jersey: Kenisha Macias RN) magnesium oxide (MAG-OX) tablet 400 mg (COMPLETED) 400 mg, Oral, EVERY 4 HOURS, First dose on Tue03/19/24 at 0000, For 2 doses, Avoid using oral magnesium if patient has current diarrhea. Magnesium level 1.6-2 mg/dL Administer 400 mg ORAL magnesium x 2 doses and recheck magnesium level the AM after the last ORAL dose. Ordered from the Magnesium replacement order set., Magnesium Replacement: Magnesium level 1.6-2 mg/dL, Recheck: Magnesium level next AM 0006 ($Given - Provi jersey: Kenisha Macias RN)0407 ($Given - Provider: Kenisha Macias RN) magnesium oxide (MAG-OX) tablet 400 mg (COMPLETED) 400 mg, Oral, EVERY 4 HOURS, First dose on Tue03/19/24 at 0900, For 2 doses, Avoid using oral magnesium if patient has current diarrhea. Magnesium level 1.6-2 mg/dL Administer 400 mg ORAL magnesium x 2 doses and recheck magnesium level the AM after the last ORAL dose. Ordered from the Magnesium replacement order set., Magnesium Replacement: Magnesium level 1.6-2 mg/dL, Recheck: Magnesium level next AM 0902 ($Given - Provi jersey: Yvonne Ospina RN)1405 ($Given - Provider: Yvonne Ospina RN) metoclopramide (REGLAN) injection 10 mg (COMPLETED) 10 mg, Intravenous, Administer over 2 Minutes, ONCE, On Tue03/18/24 at 1535, For 1 dose, Avoid use if patient has full bowel obstruction or perforation. 1610 ($Given - Provider: Hortencia Monge RN) potassium & sodium phosphates (NEUTRA-PHOS) Packet 1 packet (COMPLETED) 1 packet, Oral or Feeding Tube, EVERY 4 HOURS, First dose on Tue03/19/24 at 0000, For 3 doses, Phosphorus level 2-2.4 mg/dL Administer 1 packet of oral or feeding tubephosphorus replacement x 3 doses and recheck phosphorus level next AM. Ordered from the Phosphorus replacement order set., Phosphorus Replacement: Phosphorus level 2-2.4 mg/dL and Creatinine Clearance GREATER than or EQUAL to 30 mL/min, Recheck: Phosphorus level next AM 0007 ($Given - Provi jersey: Kenisha Macias RN)0406 ($Given - Provider: Kenisha Macias RN)0755 ($Given - Provider: Yvonne Ospina RN) potassium & sodium phosphates (NEUTRA-PHOS) Packet 1 packet (COMPLETED) 1 packet, Oral or Feeding Tube, EVERY 4 HOURS, First dose on Tue03/19/24 at 0900, For 3 doses, Phosphorus level 2-2.4 mg/dL Administer 1 packet of oral or feeding tubephosphorus replacement x 3 doses and recheck phosphorus level next AM. Ordered from the Phosphorus replacement order set., Phosphorus Replacement: Phosphorus level 2-2.4 mg/dL and Creatinine Clearance GREATER than or EQUAL to 30 mL/min, Recheck: Phosphorus level next AM 0902 ($Given - Provi jersey: Yvonne Ospina RN)1405 ($Given - Provider: Yvonne Ospina, RN)1632 ($Given - Provider: Yvonne Ospina, RN) potassium chloride makeda ER (KLOR-CON M20) CR tablet 20 mEq (COMPLETED) 20 mEq, Oral, ONCE, On Tue03/19/24 at 0000, For 1 dose, Potassium level 3.5-3.8 mmol/L Ordered from the Potassium replacement order set. DO NOT CRUSH, Potassium Replacement: Potassium level 3.5-3.8 mmol/L, Recheck: Potassium level next AM 0006 ($Given - Provi jersey: Kenisha Macias RN) sodium chloride (PF) 0.9% PF flush 3 mL 3 mL, Intracatheter, EVERY 8 HOURS, First dose on 03/18/24 at 1735, to lock peripheral IV dormant line 0049 (Not Given - Provider: Kenisha Macias RN - Reason: IV Infusing)0905 (Not Given - Provider: Yvonne Ospina RN - Reason: Other - Comment: previous shift not given)0906 ($Given - Provider: Yvonne Ospina RN)1636 ($Given - Provider: Yvonne Ospina RN) sodium chloride 0.9% BOLUS 1,000 mL (COMPLETED) Intravenous, 1,000 mL, ONCE, at 2,000 mL/hr, Administer over 30 Minutes, On 03/18/24 at 1535, For 1 dose 1608 ($New Bag - Provider: Hortencia Monge RN) Continuous Medication Order 03/17/2024 03/18/2024 03/19/2024 sodium chloride 0.9 % infusion at 100 mL/hr, Intravenous, CONTINUOUS, Starting on Tue03/18/24 at 1735, Until Tue03/19/24 at 0334 2237 ($New Bag - Provider: Kenisha Macias RN) 0903 (Stopped - Provider: Yvonne Ospina RN) PRN Medication Order 03/17/2024 03/18/2024 03/19/2024 acetaminophen (TYLENOL) tablet 650 mg 650 mg, Oral, EVERY 4 HOURS PRN, mild pain, other, and adjunct with moderate or severe pain or per patient request, Starting on Tue03/18/24 at 1730, Alternate with ibuprofen if ordered. Maximum acetaminophen dose from all sources = 75 mg/kg/day not to exceed 4 grams/day. 2235 ($Given - Provider: Kenisha Macias RN) 0541 ($Given - Provider: Geno Muir RN) lidocaine (LMX4) cream Topical, EVERY 1 HOUR PRN, pain, with VAD insertion, Starting on Tue03/18/24 at 1730, Apply at least 30 minutes prior to VAD insertion in divided doses as needed for size of site for insertion. MAX Dose: 2.5 g (?? of 5 g tube) Do NOT give if patient has a history of allergy to any local anesthetic or any parveen product. Do NOT use both lidocaine intradermal/subcutaneous injection and the lidocaine cream on the same site. lidocaine 1 % 0.1-1 mL 0.1-1 mL, Other, EVERY 1 HOUR PRN, mild pain with VAD insertion, Starting on 03/18/24 at 1730, MAX dose 1 mL subcutaneous OR intradermal along the side of the vein in divided doses as needed for VAD insertion. Do NOT give if patient has a history of allergy to any local anesthetic or any parveen product. Do NOT use both lidocaine intradermal/subcutaneous injection and the lidocaine cream on the same site. LORazepam (ATIVAN) injection 2 mg 2 mg, Intravenous, ONCE PRN, seizures, seizure lasting more than one minute. May repeat once if seizure activity is still present 3 minutes after the initial dose., Starting on 03/18/24 at 1736, For 1 dose, IV Route: Dilute with equal volume NS prior to use. This drug may cause significant respiratory depression. Monitor respiratory status and vital signs carefully for 1 hour after each dose. ondansetron (ZOFRAN ODT) ODT tab 4 mg(Linked Group 1) 4 mg, Oral, EVERY 6 HOURS PRN, nausea, vomiting, Starting on 03/18/24 at 1730, This is Step 1 of nausea and vomiting management. If nausea not resolved in 15 minutes, go to Step 2 prochlorperazine (COMPAZINE). With dry hands, peel back foil backing and gently remove tablet. Do not push oral disintegrating tablet through foil backing. Administer immediately on tongue and oral disintegrating tablet dissolves in seconds, then swallow with saliva. Liquid not required. ondansetron (ZOFRAN) injection 4 mg(Linked Group 1) 4 mg, Intravenous, EVERY 6 HOURS PRN, nausea, vomiting, Administer over 2-5 Minutes, Starting on 03/18/24 at 1730, Give IF patient unable to tolerate oral medication. This is Step 1 of nausea and vomiting management. If nausea not resolved in 15 minutes, go to Step 2 prochlorperazine (COMPAZINE). senna-docusate (SENOKOT-S/PERICOLACE) 8.6-50 MG per tablet 1 tablet(Linked Group 2) 1 tablet, Oral, 2 TIMES DAILY PRN, constipation, Starting on 03/18/24 at 1730, If no bowel movement in 24 hours, increase to 2 tablets by mouth. IF more than 1 constipation PRN medication is ordered, administer step-sosa as indicated, moving to the next step ONLY if prior step ineffective. Step 1: senna-docusate (SENOKOT-S; PERICOLACE) OR bisacodyl (DULCOLAX) EC tablet Step 2: polyethylene glycol (MIRALAX/GLYCOLAX) Step 3: bisacodyl (DULCOLAX) suppository Step 4: enema Hold for loose stools. senna-docusate (SENOKOT-S/PERICOLACE) 8.6-50 MG per tablet 2 tablet(Linked Group 2) 2 tablet, Oral, 2 TIMES DAILY PRN, constipation, Starting on 03/18/24 at 1730, IF more than 1 constipation PRN medication is ordered, administer step-sosa as indicated, moving to the next step ONLY if prior step ineffective. Step 1: senna-docusate (SENOKOT-S; PERICOLACE) OR bisacodyl (DULCOLAX) EC tablet Step 2: polyethylene glycol (MIRALAX/GLYCOLAX) Step 3: bisacodyl (DULCOLAX) suppository Step 4: enema Hold for loose stools. sodium chloride (PF) 0.9% PF flush 3 mL 3 mL, Intracatheter, EVERY 1 MIN PRN, line flush, other, to ensure patency or to lock dormant line, Starting on 03/18/24 at 1730 Linked Groups Order Group 1: ondansetron (ZOFRAN ODT) ODT tab 4 mgJump to med 4 mg, Oral, EVERY 6 HOURS PRN, nausea, vomiting, Starting on 03/18/24 at 1730, This is Step 1 of nausea and vomiting management. If nausea not resolved in 15 minutes, go to Step 2 prochlorperazine (COMPAZINE). With dry hands, peel back foil backing and gently remove tablet. Do not push oral disintegrating tablet through foil backing. Administer immediately on tongue and oral disintegrating tablet dissolves in seconds, then swallow with saliva. Liquid not required. Or ondansetron (ZOFRAN) injection 4 mgJump to med 4 mg, Intravenous, EVERY 6 HOURS PRN, nausea, vomiting, Administer over 2-5 Minutes, Starting on 03/18/24 at 1730, Give IF patient unable to tolerate oral medication. This is Step 1 of nausea and vomiting management. If nausea not resolved in 15 minutes, go to Step 2 prochlorperazine (COMPAZINE). Group 2: senna-docusate (SENOKOT-S/PERICOLACE) 8.6-50 MG per tablet 1 tabletJump to med 1 tablet, Oral, 2 TIMES DAILY PRN, constipation, Starting on 03/18/24 at 1730, If no bowel movement in 24 hours, increase to 2 tablets by mouth. IF more than 1 constipation PRN medication is ordered, administer step-sosa as indicated, moving to the next step ONLY if prior step ineffective. Step 1: senna-docusate (SENOKOT-S; PERICOLACE) OR bisacodyl (DULCOLAX) EC tablet Step 2: polyethylene glycol (MIRALAX/GLYCOLAX) Step 3: bisacodyl (DULCOLAX) suppository Step 4: enema Hold for loose stools. Or senna-docusate (SENOKOT-S/PERICOLACE) 8.6-50 MG per tablet 2 tabletJump to med 2 tablet, Oral, 2 TIMES DAILY PRN, constipation, Starting on 03/18/24 at 1730, IF more than 1 constipation PRN medication is ordered, administer step-sosa as indicated, moving to the next step ONLY if prior step ineffective. Step 1: senna-docusate (SENOKOT-S; PERICOLACE) OR bisacodyl (DULCOLAX) EC tablet Step 2: polyethylene glycol (MIRALAX/GLYCOLAX) Step 3: bisacodyl (DULCOLAX) suppository Step 4: enema Hold for loose stools. documented in this encounter Care Teams Senior Programmer Relationship Specialty Start Date End Date [facility], [address] [id number] PCP - General 03/18/24 documented as of this encounter
--- OUTSIDE RECORDS SUMMARY | 2024-04-09 20:11 | XMS_ITS | Continuity of Care Document ---
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 - Active ZOLOFT (unknown strength) Not Available - Active VITAMIN D3 (unknown strength) Not Available - Active LIPITOR (unknown strength) Not Available - Active GABAPENTIN (unknown strength) Not Available - Active IMURAN (unknown strength) Not Available - Active TIROSINT (unknown strength) Not Available - Active VITAMIN B-12 (unknown strength) Not Available - Active REMERON (unknown strength) Not Available - Active Procedures Procedure Date Postop Followup Visit Remove Perc Electrode Revise/Remove Spinal Neuroreceiver Remove Perc Electrode Office/Outpatient Visit,New, Mod 2017 Office/Outpatient Visit,Est, Mod 2014 Office/Outpatient Visit,Est, Mod 2014 Postop Followup Visit X-Ray Exam Of Spine, Single View 2014 Neck Spine Fuse & Removal Addl 14 Addl Neck Spine Fusion Insert Spine Fix Dev, Ant, 2-3 Seg Apply Spinal Prosthetic Device 14 Apply Spinal Prosthetic Device 14 Autograft, Spine Surg, Morselized Pa Neck Spine Fuse & Removal Addl Pa Addl Neck Spine Fusion Pa Assist Insert Spine Fix Dev, Ant, 2-3 Seg Pa Assist Apply Spinal Prosthetic Device Pa Assist Apply Spinal Prosthetic Device Pa Assist Autograft, Spine Surg, Morseli zed Office/Outpatient Visit,Est, Mod 2013 Office/Outpatient Visit,Est, Mod 2013 Postop Followup Visit Laminotomy, Reexplr 1 Intrspc Lumbr Low Back Disk Surgery/Decompress 2013 Pa Assist Laminotomy, Reexplr 1 Intrspc Lumbr Pa Assist Low Back Disk Surgery/Decompre ss Office/Outpatient Visit,New, Mod 2012 Advance Directives Directive Yes / No Effective Date File Name No Information Encounters Encounter Description Practice Location Reason(s) For Visit Diagnoses Date Provider Providers Copied on Encounter [facility], [address], [place], [place], [id number], [place] tel:[phone] [facility] No Information 0 Tangela Livingston. [facility], [address] [place] [address], [address], [place], [place], [id number], [place]. tel:[phone] [facility], [address], [place], [place], [address], [place] tel:[phone] [facility] Chronic pain syndrome 9 Kirk Smith. [facility], [address] [place] [address] [address], [place], [place], [address], [place]. tel:[phone] Referring Provider: Bhavin Vincent [facility] [address] [place], [address]. tel:[phone] [facility], [address], [place], [place], [id number], [place] tel:[phone] [facility] No Information 9 Tangela Livingston. [facility], [address], [address], [place], [place], [address], [place]. tel:[phone] Referring Provider: LAM Aiken [address] [place] [address], [address]. tel:[phone] [facility], [address], [place], [place], [id number], [place] tel:[phone] [facility] No Information [facility]. [facility], [address], [place], [place], [address], [place]. tel:[phone] Referring Provider: LAM Aiken [address] [place] [address], [address]. tel:[phone] Office/Outpa tient Visit,New, Mod [facility], [address], [place], [place], [id number], [place] tel:[phone] [facility] Chronic pain syndrome Pelkola Sarah. [facility], [address] [place] [address] [address], [place], [place], [address], [place]. tel:[phone] Referring Provider: LAM Aiken [address] [place] [address], [address]. tel:[phone] [facility], [address], [place], [place], [address], [place] tel:[phone] [facility] No Information Alicia Benitez. [facility], [address] [facility] , [place], [address], [place]. tel:[phone] Office/Outpa tient Visit,Est, Mod [facility], [address], [place], [address], [place] tel:[phone] [facility] OverweightSpi nal stenosis, lumbar region 5 Alicia Benitez. [facility], [address] [facility] [place], [address], [place]. tel:[phone] Office/Outpa tient Visit,Est, Mod [facility], [address], [place], [place], [address], [place] tel:[phone] [facility] OVERWEIGHTBra chial neuritis 5 Alicia Benitez. [facility], [address] [facility] , [place], [address], [place]. tel:[phone] [facility], [address], [place], [place], [id number], [place] tel:[phone] [facility] Brachial neuritis 5 Alicia Benitez. [facility], [address] [facility] , [place], [address], [place]. tel:[phone] [facility], [address], [place], [place], [id number], [place] tel:[phone] [facility] No Information 4 Alicia Benitez. [facility], [address] [facility] , [place], [address], [place]. tel:[phone] Office/Outpa tient Visit,Est, Mod Z [facility], [address] [place], [place] [address] [address], [place], [address], [place] tel:[phone] [facility] No Information 4 Mehbod Amir. [facility], [address], [place], [place], [address], [place]. tel:[phone] Referring Provider: Yung Coates, [facility] [place] [facility], [place], [address]. tel:[phone] Office/Outpa tient Visit,Est, Mod Z [facility], [address] [place], [place] [address], [place], [address], [place] tel:[phone] [facility] No Information 4 Mehbod Amir. [facility], [address], [place], [place], [address], [place]. tel:[phone] Referring Provider: Yung Coates, [facility] [address] [facility], [place], [address]. tel:[phone] Z [facility], [address] [place], [place] [address], [place], [address], [place] tel:[phone] [facility] No Information Oct-0 7-201 4 Mehbod Amir. [facility], [address], [place], [place], [address], [place]. tel:[phone] Referring Provider: Yung Coates, [facility] [address] [facility], [place], [address]. tel:[phone] Z [facility], [address] [address], [place], [place], [facility], [place] tel:[phone] [facility] No Information Sep- 2-201 4 Mehbod Amir. [facility], [address] [place] [address] [address], [place], [place], [address], [place]. tel:[phone] Referring Provider: Yung Coates, [facility] [address] [facility], [place], [address]. tel:[phone] Z [facility], [address] [facility], [place], [place], [facility], [place] tel:[phone] [facility] [place] Hypothyroidis mDepressionDI SC DISPLACEMENT NOS Sep- 1-201 4 Mehbod Amir. [facility], [address] [place] [address] [address], [place], [place], [id number], [place]. tel:[phone] Office/[facility]pa [facility]ient [facility], [facility] Z [facility], [address], [place], [address], [place] tel:[phone] [facility] [place] Crohn's Disease Dec-0 9-201 3 Mehbod Amir. [facility], [address] [place] [address] [address], [place], [place], [address], [place]. tel:[phone] Family History Family Member Type Diagnosis Age At Onset Problem (finding) Problem (finding) Payers Payer name Insurance type Covered green party ID Colin king(s) [facility] [id number] Medicare Angle MENDES [id number] Social History Type Description Quantity Date Captured Comments Sex Male Smoking Status No Information Chief Complaint And Reason For Visit No Information Reason For Referral Reason For Referral No Information History Of Present Illness Encounter Date Complaint History Of Prese nt Illness No Information Functional Status Date Functional Assessmen t No Information Instructions Date Instruction Additional Infor mation Weight management: R efer to Referral to General Practitioner timeframe: 1 Month. Related to Overweight Weight Management Related to Ove rweight Weight Management Related to Ove rweight Assessments Type Assessment Date No Information Patient Care Teams Name Effective Dates (start - stop) Status Members No Information
--- OUTSIDE RECORDS SUMMARY | 2024-04-09 20:11 | XMS_ITS | Clinical Summary ---
Author Organization [facility] Address [address] [place] [id number] Care Team Providers Care Header Setup Operator Name Role Phone Presley, [facility] Primary Care Provider Allergies No known active allergies Medications Medication Sig Dispensed Refills Start Date End Date Status levothyroxine (SYNTHROID/LEVOTH ROID) 200 MCG tablet Take 200 mcg by mouth daily. Active VITAMIN D, CHOLECALCIFEROL, PO Take 10,000 Units by mouth once a week. on Tuesday Active Mirtazapine (REMERON PO) Take 45 mg by mouth At Bedtime Active Cyanocobalamin (VITAMIN B 12 PO) Take 1,000 mcg by mouth daily Active ARIPiprazole (ABILIFY) 2 MG tablet Take 2 mg by mouth daily. Active atorvastatin (LIPITOR) 20 MG tablet Take 20 mg by mouth daily. Active desvenlafaxine (PRISTIQ) 50 MG 24 hr tablet Take 50 mg by mouth daily. Active pregabalin (LYRICA) 100 MG capsule Take 100 mg by mouth 3 times daily. Active aspirin 81 MG EC tablet Take 81 mg by mouth daily. Active inFLIXimab (REMICADE IV) Inject 1,000 mg into the vein every 28 (twenty-eight) days. Active levETIRAcetam (KEPPRA) 500 MG tabletIndications :New onset seizure (H) Take 1 tablet (500 mg) by mouth 2 times daily. 60 tablet 03/19/2024 Active AzaTHIOprine (IMURAN PO) 03/18/2024 Discontinued (Med Rec(No AVS / No eCancel)) PREDNISONE PO Take 5 mg by mouth daily 03/18/2024 Discontinued (Med Rec(No AVS / No eCancel)) Active Problems Patient Care Coordination No te Formatting of this note migh t be different from the original. [email or web address] Problem Noted Date Diagnosed Date New onset seizure 03/18/2024 Low back pain 11/22/2014 Encounters Date Type Department Care Team Description 03/18/2024 2:30 PM CDT - 03/19/2024 7:08 PM CDT Emergency [facility] 3 Medical Surgical [address] [place] [address] Benny Gutierrez MD Ricklefs, Kendall D, Mehdi Carreno MD New onset seizure (H) Discharge Disposition: Home or Self Care 03/18/2024 4:41 AM CDT - 03/18/2024 9:01 AM CDT Emergency [facility] Emergency Dept [address] [place] [address] Romelia Tariq, Keith Georges MD Seizure (H) Discharge Disposition: Home or Self Care 03/18/2024 Travel from Last 3 Months Social History Tobacco Use Types Packs/Day Years [...] Answer Date Recorded Do you have housing? (Indrain g is defined as stable permanent housing and does not include staying ouside in a car, in a tent, in an abandoned building, in an overnight fci, or couch-surfing.) No 03/18/2024 Are you worried [...] on file Sexual Orientation Not on file Last Filed Vital Signs Vital Sign Reading [...] Mass Index 29.21 03/18/2024 8:16 PM CDT Plan of Treatment Health Maintenance Due Date Last Done Comments ADVANCE CARE PLANNING 1959 ANNUAL REVIEW OF HM ORDERS 1959 CT COLONOGRAPHY 1959 FIT 1959 FLEX SIG 1959 LIPID 1959 sDNA (Cologuard) 1959 COLONOSCOPY 10/08/1969 COLORECTAL CANCER SCREENING 10/08/1969 HIV SCREENING 10/08/1974 HEPATITIS C SCREENING 10/08/1977 Pneumococcal Vaccine: Pediatrics (0 to 5 Years) and At-Risk Patients (6 to 64 Years) (3 of 3 - PPSV23 or PCV20) 12/15/2018 10/20/2018, 11/01/2013 RSV VACCINE (1 - Risk 60-74 years 1-dose series) 2019 PHQ-2 (once per calendar year) 2023 MEDICARE ANNUAL WELLNESS VISIT 01/01/2024 12/31/2022, 09/30/2021, 09/22/2020 COVID-19 Vaccine ( season) 2024 06/14/2023, 03/24/2022, 10/26/2021, Additional history exists INFLUENZA VACCINE (#1) 2024 , 03/24/2022, 05/03/2021, Additional history exists TSH W/FREE T4 REFLEX 03/18/2025 03/18/2024 GLUCOSE 03/18/2027 03/18/2024, 03/04, 05/06/2014 DTAP/TDAP/TD IMMUNIZATION (3 - Td or Tdap) 10/06/2032 10/06/2022, 03/15/2012, 06/19/1997 ZOSTER IMMUNIZATION Completed 10/31/2020, 0 HPV IMMUNIZATION Aged Out No longer e ligible based on patient's age to complete this topic MENINGITIS IMMUNIZATION Aged Out No l onger eligible based on patient's age to complete this topic RSV MONOCLONAL ANTIBODY Aged Out No l onger eligible based on patient's age to complete this topic Procedures Procedure Name Priority Date/Time Associated Diagnosis Comments EEG AWAKE OR DROWSY ROUTINE Routine 03/19/2024 1:43 PM CDT PHOSPHORUS Routine 03/19/2024 7:37 AM CDT MAGNESIUM Routine 03/19/2024 7:37 AM CDT POTASSIUM Routine 03/19/2024 7:37 AM CDT PHOSPHORUS Routine 03/18/2024 10:27 PM CDT MAGNESIUM Routine 03/18/2024 10:27 PM CDT POTASSIUM Routine 03/18/2024 10:27 PM CDT URINE DRUG SCREEN STAT 03/18/2024 8:0 7 PM CDT URINE DRUG SCREEN PANEL STAT 03/18/2024 8:07 PM CDT ROUTINE UA WITH MICROSCOPIC REFLEX TO CULTURE STAT 03/18/2024 8:07 PM CDT MR BRAIN W/O & W CONTRAST STAT 03/18/2024 7:44 PM CDT INFLUENZA A/B, RSV, & SARS-COV2 PCR STAT 03/18/2024 6:32 PM CDT CBC WITH PLATELETS & DIFFERENTIAL STAT 03/18/2024 3:35 PM CDT ETHYL ALCOHOL LEVEL Add-On 03/18/2024 3 :35 PM CDT PHOSPHORUS Add-On 03/18/2024 3:35 PM CDT MAGNESIUM Add-On 03/18/2024 3:35 PM CDT TSH WITH FREE T4 REFLEX Add-On 03/18/2024 3:35 PM CDT CBC WITH PLATELETS AND DIFFERENTIAL STAT 03/18/2024 3:35 PM CDT BASIC METABOLIC PANEL STAT 03/18/2024 3:35 PM CDT CTA HEAD NECK W CONTRAST STAT 03/18/2024 7:[address] HEAD W/O CONTRAST STAT 03/18/2024 5:45 AM CDT EKG 12-LEAD, TRACING ONLY STAT 03/18/2024 5:32 AM CDT CBC WITH PLATELETS & DIFFERENTIAL STAT 03/18/2024 4:56 AM CDT HEPATIC FUNCTION PANEL Add-On 03/18/2024 4:56 AM CDT EXTRA RED TOP TUBE STAT 03/18/2024 4: 56 AM CDT EXTRA BLUE TOP TUBE STAT 03/18/2024 4 :56 AM CDT CBC WITH PLATELETS AND DIFFERENTIAL STAT 03/18/2024 4:56 AM CDT EXTRA TUBE STAT 03/18/2024 4:56 AM CDT BASIC METABOLIC PANEL STAT 03/18/2024 4:56 AM CDT from Last 3 Months Results * EEG Awake or Drowsy Routine [...] discharges recorded. Sary Aldana MD N Neurology Clara Sanchez PA-C IMG EEG ORDERABLES Performing Organization Address City/[facility]/ZIP Co de Phone Number [id number] * Potassium (03/19/2024 7:37 AM CDT) Only the most recent of2 resultswithin the time period is included. Potassium 3.9 3.4 - 5.3 mmol/L 03/19/2024 8:16 AM CDT LABORATORY Blood STRUCTURE OF RIGHT UPPER LIMB / Unknown Venipuncture / Unknown 03/19/2024 7:37 AM CDT 03/19/2024 7:55 AM CDT Mehdi Simmons MD LAB - BLO OD ORDERABLES Performing Organization Address City/[facility] Co de Phone Number [facility] [address] Lab (1st floor, no room number) [address] * (ABNORMAL) Phosphorus (03/19/2024 7:37 AM CDT) Only the most recent of3 resultswithin the time period is included. Phosphorus 2.2(L) 2.5 - 4.5 mg/dL 03/19/2024 8:16 AM CDT LABORATORY Blood STRUCTURE OF RIGHT UPPER LIMB / Unknown Venipuncture / Unknown 03/19/2024 7:37 AM CDT 03/19/2024 7:55 AM CDT Mehdi Simmons MD LAB - BLO OD ORDERABLES Performing Organization Address City/[facility]/ZIP Co de Phone Number [facility] [address] Lab (1st floor, no room number) [address] * Magnesium (03/19/2024 7:37 AM CDT) Only the most recent of3 resultswithin the time period is included. Magnesium 1.9 1.7 - 2.3 mg/dL 03/19/2024 8:16 AM CDT LABORATORY Blood STRUCTURE OF RIGHT UPPER LIMB / Unknown Venipuncture / Unknown 03/19/2024 7:37 AM CDT 03/19/2024 7:55 AM CDT Mehdi Simmons MD LAB - BLO OD ORDERABLES RH LABORATORY [facility] [address] Lab (1st floor, no room number) [place] [address] * (ABNORMAL) UA with Microscopic reflex to [...] mg/dL 03/18/2024 8:18 PM CDT LABORATORY Specific [place] Urine 1.028 1.003 - 1.035 03/18/2024 8:18 PM CDT LABORATORY Blood Urine Trace(A) Negative 03/18/2024 8:18 PM CDT LABORATORY pH Urine 5.5 5.0 - 7.0 03/18/2024 8:18 PM CDT LABORATORY Protein Albumin Urine Negative Negative mg/dL 03/18/2024 8:18 PM CDT LABORATORY Urobilinogen Urine Normal Normal, 2.0 mg/dL 03/18/2024 8:18 PM CDT LABORATORY Nitrite Urine Negative Negative 03/18/2024 8:18 PM CDT LABORATORY Leukocyte Esterase Urine Negative Negative 03/18/2024 8:18 PM CDT LABORATORY Bacteria Urine Few(A) None Seen /HPF 03/18/2024 8:18 PM CDT LABORATORY Mucus Urine Present(A) None Seen /LPF 03/18/2024 8:18 PM CDT LABORATORY RBC Urine 1 <=2 /HPF 03/18/2024 8:18 PM CDT LABORATORY WBC Urine 1 <=5 /HPF 03/18/2024 8:18 PM CDT RH LABORATORY Squamous Epithelials Urine <1 <=1 /HPF 03/18/2024 8:18 PM CDT LABORATORY Urine MID-STREAM URINE SPECIMEN / Unknown Non-blood Collection / Unknown 03/18/2024 8:07 PM CDT 03/18/2024 8:11 PM CDT Narrative RH LABORATORY - 03/18/2024 8:18 PM CDT Urine Culture not indicated Clara Sanchez PA-C LAB - URINE ORDERA BLES LABORATORY [facility] [address] Lab (1st floor, no room number) [place] [address] * Urine Drug Screen Panel (03/18/2024 8:07 PM CDT) Amphetamines Urine Screen Negative Screen Negative 03/18/2024 8:35 PM CDT LABORATORY Comment:Cutoff for a negativ e amphetamine [...] Negative Screen Negative 03/18/2024 8:35 PM CDT LABORATORY Comment:Cutoff for a negativ e PCP is less than 25 ng/mL. Urine MID-STREAM URINE SPECIMEN / Unknown Non-blood Collection / Unknown 03/18/2024 8:07 PM CDT 03/18/2024 8:11 PM CDT Clara Sanchez PA-C LAB - URINE ORDERA BLES LABORATORY [facility] [address] Lab (1st floor, no room number) [place] [address], [facility] * MR Brain w/o & w Contrast (03/18/2024 7:44 PM CDT) Anatomical Region Laterality Modality Head, SUBRAD MR NEURO, UMP MR NEURO, RAD MR Magnetic Resonance 03/18/2024 7:44 PM CDT Impressions 03/18/2024 7:51 PM CDT IMPRESSION: 1. ??No acute intracranial abnormality. 2. ??Chronic changes, as described. Narrative 03/18/2024 7:51 PM CDT EXAM: MR BRAIN W/O and W CONTRAST LOCATION: [facility] DATE: 03/18/2024 INDICATION: New-onset seizure of unclear [...] MR BRAIN W/O and W CONTRAST LOCATION: [facility] DATE: 03/18/2024 INDICATION: New-onset seizure of unclear [...] Chronic changes, as described. Clara Sanchez PA-C [facility] MRI ORDERABLES * Asymptomatic Influenza A/B, RSV, & SARS-CoV2 PCR (COVID-19) Nasopharyngeal (03/18/2024 6:32 PM CDT) Pathologist [facility] Influenza A PCR Negative Negative 03/18/2024 7:43 [...] the Xpert Xpress CoV2/Flu/RSV Assay on the [employer]pert Instrument. This test should be ordered for [...] management. This test was validated by the [facility]. These laboratories are certified under the Clinical Laboratory Improvement Amendments of 1988 (CLIA-88) as qualified to perfom high complexity laboratory testing. Clara Sanchez PA-C LAB - MICRO GENERA L ORDERABLES LABORATORY [facility] [address] [facility] Lab (1st floor, no room number) [place] [address], [facility] * (ABNORMAL) CBC with platelets and differential (03/18/2024 3:35 PM CDT) Only the most recent of2 resultswithin the time period is included. WBC Count 11.4(H) 4.0 - 11.0 10e3/uL [...] Gutierrez MD LAB - BLOOD ORDER CHASE [facility] [address] Lab (1st floor, no room number) [place] [address] * TSH with free T4 reflex (03/18/2024 3:35 PM CDT) TSH 0.96 0.30 - 4.20 uIU/mL 03/18/2024 5:25 PM CDT RH LABORATORY Blood BLOOD SPECIMEN / Unknown Venipuncture / Unknown 03/18/2024 3:35 PM CDT 03/18/2024 3:54 PM CDT Clara BAEZ-C LAB - BLOOD ORDERA BLES Performing Organization Address City/[facility]/ZIP Co de Phone Number [facility] Lab [address] Lab (1st floor, no room number) [place] [address], [facility] * Alcohol ethyl (03/18/2024 3:35 PM CDT) Alcohol ethyl <0.01 <=0.01 g/dL 03/18/2024 5:16 PM CDT RH LABORATORY Blood BLOOD SPECIMEN / Unknown Venipuncture / Unknown 03/18/2024 3:35 PM CDT 03/18/2024 3:54 PM CDT Clara Sanchez PA-C LAB - BLOOD ORDERA BLES [facility] [address] Lab (1st floor, no room number) [place] [address], [facility] * (ABNORMAL) Basic metabolic panel (BMP) (03/18/2024 3:35 PM CDT) Only the most recent of2 resultswithin the time period is included. Sodium 139 135 - 145 mmol/L 03/18/2024 4:21 PM CDT LABORATORY Potassium 4.1 3.4 - 5.3 mmol/L 03/18/2024 4:21 PM CDT LABORATORY Chloride 108(H) 98 - 107 mmol/L [...] 03/18/2024 4:21 PM CDT LABORATORY Comment:eGFR calculated 2020 CKD-EPI equation. Calcium 8.4(L) 8.8 - 10.4 [...] MD LAB - BLOOD ORDER CHASE LABORATORY [facility] [address] [facility] Lab (1st floor, no room number) [place] [address] * CTA Head Neck with Contrast (03/18/2024 7:27 AM CDT) Anatomical Region Laterality Modality Head, SUBRAD CT NEURO, SUBRA D CT NEURO, UMP CT NEURO, RAD CT Computed Tomography 03/18/2024 7:27 AM CDT Impressions 03/18/2024 7:51 AM CDT IMPRESSION: HEAD CTA: 1. ??Normal CTA [place]. NECK CTA: 1. ??Plaque without stenosis at the internal carotid origins bilaterally. 2. ??Otherwise, normal neck CTA. Narrative 03/18/2024 7:51 AM CDT EXAM: CTA HEAD NECK WITH CONTRAST LOCATION: [facility] DATE: 03/18/2024 INDICATION: Headache, seizure; Headache; Acute [...] No stenosis/occlusion, aneurysm, or high-flow vascular malformation. Standard [place] anatomy. POSTERIOR CIRCULATION: No stenosis/occlusion, [...] of the great vessels. NONVASCULAR STRUCTURES: Unremarkable. Procedure Note Yassine Oconnor MD - 03/18/2024 EXAM: CTA HEAD NECK WITH CONTRAST LOCATION: [facility] DATE: 03/18/2024 INDICATION: Headache, seizure; Headache; Acute DAVEY (< 3 months), nocomplicating features. COMPARISON: None. CONTRAST: 70 mL Isovue-[id number]. TECHNIQUE: Head and neck CT angiogram with IV contrast. Axial helical CTimages of the head and neck vessels obtained during the arterial phase ofintravenous contrast administration. Axial 2D reconstructed images andmultiplanar 3D MIP reconstructed images of the head and neck vessels were performed by the technologist.Dose reduction techniques were used. All stenosis measurements madeaccording to NASCET criteria unless otherwise specified. FINDINGS: HEAD CTA: ANTERIOR CIRCULATION: No stenosis/occlusion, aneurysm, or high-flowvascular malformation. Standard [place] anatomy. POSTERIOR CIRCULATION: No stenosis/occlusion, aneurysm, or high-flowvascular malformation. Balanced vertebral arteries supply a normal basilarartery. DURAL VENOUS SINUSES: Expected enhancement of the major dural venoussinuses. NECK CTA: CAROTIDS: The common carotid arteries bilaterally are patent withoutstenosis. There is atherosclerotic plaque at the internal carotid originson both sides that does not result in any significant vascular narrowing.The cervical internal carotid arteries bilaterally are otherwise unremarkable. VERTEBRAL ARTERIES: No focal stenosis or dissection. Balanced vertebralarteries. AORTIC ARCH: Classic aortic arch anatomy with no significant stenosis atthe origin of the great vessels. NONVASCULAR STRUCTURES: Unremarkable. IMPRESSION: HEAD CTA: 1. Normal CTA [place]. NECK CTA: 1. Plaque without stenosis at the internal carotid origins bilaterally. 2. Otherwise, normal neck CTA. Romelia Tariq DO [facility] CT ORDERABLES * Head CT w/o contrast (03/18/2024 5:45 AM CDT) Anatomical Region Laterality Modality Head, SUBRAD CT NEURO, SUBRA D CT NEURO, UMP CT NEURO, RAD CT Computed Tomography 03/18/2024 5:45 AM CDT Impressions 03/18/2024 6:05 AM CDT IMPRESSION: 1. ??No CT evidence for acute intracranial process. 2. ??Brain atrophy and presumed chronic microvascular ischemic changes as above. Narrative 03/18/2024 6:05 AM CDT EXAM: CT HEAD W/O CONTRAST LOCATION: [facility] DATE: 03/18/2024 INDICATION: seizure COMPARISON: None. TECHNIQUE: Routine CT Head without IV contrast. Multiplanar reformats. Dose reduction techniques were used. FINDINGS: INTRACRANIAL CONTENTS: Probable retrocerebellar arachnoid cyst. No acute intracranial hemorrhage or mass effect. No CT evidence of acute infarct. Mild presumed chronic small vessel ischemic changes. Mild generalized volume loss. No hydrocephalus. VISUALIZED ORBITS/SINUSES/MASTOIDS: No intraorbital abnormality. No paranasal sinus mucosal disease. No middle ear or mastoid effusion. BONES/SOFT TISSUES: No acute abnormality. Procedure Note John Stevens MD - 03/18/2024 EXAM: CT HEAD W/O CONTRAST LOCATION: [facility] DATE: 03/18/2024 INDICATION: seizure COMPARISON: None. TECHNIQUE: Routine CT Head without IV contrast. Multiplanar reformats.Dose reduction techniques were used. FINDINGS: INTRACRANIAL CONTENTS: Probable retrocerebellar arachnoid cyst. No acuteintracranial hemorrhage or mass effect. No CT evidence of acute infarct.Mild presumed chronic small vessel ischemic changes. Mild generalizedvolume loss. No hydrocephalus. VISUALIZED ORBITS/SINUSES/MASTOIDS: No intraorbital abnormality. Noparanasal sinus mucosal disease. No middle ear or mastoid effusion. BONES/SOFT TISSUES: No acute abnormality. IMPRESSION: 1. No CT evidence for acute intracranial process. 2. Brain atrophy and presumed chronic microvascular ischemic changes asabove. Romelia Tariq DO IMG CT ORDERABLES * EKG 12-lead, tracing only (03/18/2024 5:32 AM CDT) Pathologist [facility] Systolic Blood Pressure mmHg RADIOLOGY RESULTS Diastolic Blood Pressure mmHg RADIOLOGY RESULTS Ventricular Rate 81 BPM RAD IOLOGY RESULTS Atrial Rate 81 BPM RADIOLOG Y RESULTS AR Interval 174 ms RADIOLOG Y RESULTS QRS Duration 96 ms RADIOLO GY RESULTS QT 366 ms RADIOLOGY RESULTS QTc 425 ms RADIOLOGY RESULTS P [place] 68 degrees RADIOLOGY RESULTS R AXIS 29 degrees RADIOLOGY RESULTS T [place] 52 degrees RADIOLOGY RESULTS Interpretation ECG Sinus rhythm Possible Left atrial enlargement Borderline ECG When compared with ECG of 06-May-2014 14:34, (unconfirmed) No significant change was found Confirmed by - EMERGENCY ROOM, PHYSICIAN ([id number]), restaurant expeditor ANNE BELTRÁN (Cipriano) on 03/19/2024 7:04:25 AM RADIOLOGY RESULTS 03/18/2024 5:32 AM CDT 03/19/2024 7:04 AM CDT Romelia Tariq DO ECG ORDERABLES Performing Organization Address City/[facility]/ZIP Co de Phone Number RADIOLOGY RESULTS * Extra Red Top Tube (03/18/2024 4:56 AM CDT) Hold Specimen [facility] 03/18/2024 6:06 AM CDT RH LABORATORY Blood BLOOD SPECIMEN / Unknown Venipuncture / Unknown 03/18/2024 4:56 AM CDT 03/18/2024 5:00 AM CDT Romelia Tariq DO LAB - BLOOD ORDERA BLES Performing Organization Address [facility] Co de Phone Number [facility] [address] Lab (1st floor, no room number) [place] [phone] * Extra Blue Top Tube (03/18/2024 4:56 AM CDT) Hold Specimen [facility] 03/18/2024 6:06 AM CDT RH LABORATORY Blood BLOOD SPECIMEN / Unknown Venipuncture / Unknown 03/18/2024 4:56 AM CDT 03/18/2024 5:00 AM CDT Romelia Tariq DO LAB - BLOOD ORDERA BLES Performing Organization Address [facility] Co de Phone Number [facility] [address] Lab (1st floor, no room number) [place] [phone] [place] [address] * Hepatic panel (03/18/2024 4:56 AM CDT) Protein Total 7.2 6.4 - 8.3 g/dL 03/18/2024 5:23 AM CDT RH LABORATORY Albumin 3.8 3.5 - 5.2 g/dL 03/18/2024 5:23 AM CDT RH LABORATORY Bilirubin Total 0.2 <=1.2 mg/dL 03/18/2024 5:23 AM CDT RH LABORATORY Alkaline Phosphatase 58 40 - 150 U/L 03/18/2024 5:23 AM CDT RH LABORATORY AST 26 0 - 45 U/L 03/18/2024 5:23 AM CDT RH LABORATORY ALT 25 0 - 70 U/L 03/18/2024 5:23 AM CDT RH LABORATORY Bilirubin Direct <0.20 0.00 - 0.30 mg/dL 03/18/2024 5:23 AM CDT RH LABORATORY Blood BLOOD SPECIMEN / Unknown Venipuncture / Unknown 03/18/2024 4:56 AM CDT 03/18/2024 5:00 AM CDT Romelia Tariq DO LAB - BLOOD ORDERA BLES RH LABORATORY [facility] [address] Lab (1st floor, no room number) [place] [address], [facility] from Last 3 Months Advance Directives For more information, please contact: [phone] * Full Code (Latest Code Status on File) Date Activated Date Inactivated Comments 03/18/2024 5:30 PM 03/19/2024 9:08 PM All basic an d advanced life-sustaining interventions are performed as appropriate Question Answer Comments Code status determined by: Discussion with wilton abarca/ legal decision maker Care Teams Header Setup Operator Relationship Specialty Start Date End Date Clinic, [facility] [address] [place] [id number] PCP - General 03/18/24
--- OUTSIDE RECORDS SUMMARY | 2024-04-09 20:11 | XMS_ITS | Referral Summary ---
Author Organization [place] Address [address] [place] [address] Care Team Providers Care Casting Room Helper Name Role Phone Presley, [facility] Primary Care Provider Encounters Date Type Department Care Team Description 03/18/2024 2:30 PM CDT - 03/19/2024 7:08 PM CDT Emergency [facility] 3 Medical Surgical [address] [place] [address] Benny Gutierrez MD Ricklefs, Kendall D, Mehdi Carreno MD New onset seizure (H) Discharge Disposition: Home or Self Care 03/18/2024 Travel 03/18/2024 4:41 AM CDT - 03/18/2024 9:01 AM CDT Emergency [facility] Emergency Dept [address] [place] [address] Romelia Tariq, Keith Georges MD Seizure (H) Discharge Disposition: Home or Self Care from Last 3 Months Allergies No known active allergies Medications Medication [...] migh t be different from the original. [email or web address] Problem Noted Date Diagnosed Date New onset seizure 03/18/2024 Low back pain 11/22/2014 Social History Tobacco Use Types Packs/Day Years [...] in an abandoned building, in an overnight long term, or couch-surfing.) No 03/18/2024 Are you worried [...] 03/18/2024 8:16 PM CDT Plan of Treatment Not on file Procedures Procedure Name Priority Date/Time Associated Diagnosis [...] discharges recorded. Sary Aldana MD N Neurology lCara Sanchez PA-C IMG EEG ORDERABLES Performing Organization Address City/[facility]/ZIP Co de Phone Number [id number] * [...] - BLO OD ORDERABLES Performing Organization Address [facility] Co de Phone Number [facility] [address] [employer] Lab (1st floor, no room number) [place] [phone] [place] [address] * (ABNORMAL) Phosphorus (03/19/2024 7:37 AM CDT) Only the most recent of3 resultswithin the time period is included. Phosphorus 2.2(L) 2.5 - 4.5 mg/dL 03/19/2024 8:16 AM CDT LABORATORY Blood STRUCTURE OF RIGHT UPPER LIMB / Unknown Venipuncture / Unknown 03/19/2024 7:37 AM CDT 03/19/2024 7:55 AM CDT Mehdi Simmons MD LAB - BLO OD ORDERABLES Performing Organization Address City/[facility]/ZIP Co de Phone Number [facility] [address] Lab (1st floor, no room number) [place] [address] * Magnesium (03/19/2024 7:37 AM CDT) Only the most recent of3 resultswithin the time period is included. Magnesium 1.9 1.7 - 2.3 mg/dL 03/19/2024 8:16 AM CDT LABORATORY Blood STRUCTURE OF RIGHT UPPER LIMB / Unknown Venipuncture / Unknown 03/19/2024 7:37 AM CDT 03/19/2024 7:55 AM CDT Mehdi Simmons MD LAB - BLO OD ORDERABLES LABORATORY [facility] [address] [place] Lab (1st floor, no room number) [place] [address] * (ABNORMAL) UA with Microscopic reflex to [...] mg/dL 03/18/2024 8:18 PM CDT LABORATORY Specific [place] Urine 1.028 1.003 - 1.035 03/18/2024 8:18 [...] None Seen /HPF 03/18/2024 8:18 PM CDT [facility] Mucus Urine Present(A) None Seen /LPF 03/18/2024 8:18 PM CDT [facility] RBC Urine 1 <=2 /HPF 03/18/2024 8:18 PM CDT [facility] WBC Urine 1 <=5 /HPF 03/18/2024 8:18 PM CDT [facility] Squamous Epithelials Urine <1 <=1 /HPF 03/18/2024 8:18 PM CDT [facility] Urine MID-STREAM URINE SPECIMEN / Unknown Non-blood Collection / Unknown 03/18/2024 8:07 PM CDT 03/18/2024 8:11 PM CDT Narrative [facility] - 03/18/2024 8:18 PM CDT Urine Culture not indicated Clara Sanchez PA-C LAB - URINE GIOVANAA VICTORIANO LABORATORY [facility] [address] [place] Lab (1st floor, no room number) [place] [address] * Urine Drug Screen Panel (03/18/2024 8:07 [...] CDT LABORATORY Comment:Cutoff for a negativ e opiate is less than 300 ng/mL. PCP Urine Screen Negative Screen Negative 03/18/2024 8:35 PM CDT LABORATORY Comment:Cutoff for a negativ e PCP is less than 25 ng/mL. Urine MID-STREAM URINE SPECIMEN / Unknown Non-blood Collection / Unknown 03/18/2024 8:07 PM CDT 03/18/2024 8:11 PM CDT Clara Sanchez PA-C LAB - URINE ORDERA BLES [facility] [address] Lab (1st floor, no room number) [place] [address] * MR Brain w/o & w Contrast (03/18/2024 7:44 PM CDT) Anatomical Region Laterality Modality Head, SUBRAD MR NEURO, UMP MR NEURO, RAD MR Magnetic Resonance 03/18/2024 7:44 PM CDT Impressions 03/18/2024 7:51 PM CDT IMPRESSION: 1. ??No acute intracranial abnormality. 2. ??Chronic changes, as described. Narrative 03/18/2024 7:51 PM CDT EXAM: MR BRAIN W/O and W CONTRAST LOCATION: [facility] DATE: 03/18/2024 INDICATION: New-onset seizure of unclear [...] MR BRAIN W/O and W CONTRAST LOCATION: [facility] DATE: 03/18/2024 INDICATION: New-onset seizure of unclear [...] Chronic changes, as described. Clara Sanchez PA-C IMSanthosh MRI ORDERABLES * Asymptomatic Influenza A/B, RSV, & SARS-CoV2 PCR (COVID-19) Nasopharyngeal (03/18/2024 6:32 PM CDT) Pathologist [facility] Influenza A PCR Negative Negative 03/18/2024 7:43 PM CDT [facility] Influenza B PCR Negative Negative 03/18/2024 7:43 PM CDT LABORATORY RSV PCR Negative Negative 03/18/2024 7:43 PM CDT [facility] SARS CoV2 PCR Negative Negative 03/18/2024 7:43 PM CDT [facility] Comment:NEGATIVE: SARS-CoV-2 (COVID-19) RNA not detected, presumed negative. Swab NASOPHARYNGEAL STRUCTURE / Unknown Non-blood Collection / Unknown 03/18/2024 6:32 PM CDT 03/18/2024 6:38 PM CDT Narrative LABORATORY - 03/18/2024 7:43 PM CDT Testing was performed using the Xpert Xpress CoV2/Flu/RSV Assay on the [employer] GeneXpert Instrument. This test should be ordered [...] was validated by the [facility]. These laboratories are certified under the Clinical Laboratory Improvement Amendments of 1988 (CLIA-88) as qualified to perfom high complexity laboratory testing. Clara Sanchez PA-C LAB - MICRO GENERA L ORDERABLES LABORATORY [facility] [address] [place] Lab (1st floor, no room number) [place] [address], [facility] * (ABNORMAL) CBC with platelets and differential (03/18/2024 3:35 PM CDT) Only the most recent of2 resultswithin the time period is included. [facility] WBC Count 11.4(H) 4.0 - 11.0 10e3/uL [...] MD LAB - BLOOD ORDER CHASE LABORATORY [facility] [address] Lab (1st floor, no room number) [address] * TSH with free T4 reflex (03/18/2024 3:35 PM CDT) TSH 0.96 0.30 - 4.20 uIU/mL 03/18/2024 5:25 PM CDT [facility] Blood BLOOD SPECIMEN / Unknown Venipuncture / Unknown 03/18/2024 3:35 PM CDT 03/18/2024 3:54 PM CDT Clara Sanchez PA-C LAB - BLOOD ORDERA BLES LABORATORY [facility] [address] Lab (1st floor, no room number) [address] * Alcohol ethyl (03/18/2024 3:35 PM CDT) Alcohol ethyl <0.01 <=0.01 g/dL 03/18/2024 5:16 PM CDT [facility] Blood BLOOD SPECIMEN / Unknown Venipuncture / Unknown 03/18/2024 3:35 PM CDT 03/18/2024 3:54 PM CDT Clara Sanchez PA-C LAB - BLOOD ORDERA BLES [facility] LABORATORY [facility] [address] [facility] Lab (1st floor, no room number) [place] [address], [facility] * (ABNORMAL) Basic metabolic [...] Gutierrez MD LAB - BLOOD ORDER CHASE [facility] [address] Lab (1st floor, no room number) [place] [address] * CTA Head Neck with Contrast (03/18/2024 7:27 AM CDT) Anatomical Region Laterality Modality Head, SUBRAD CT NEURO, SUBRA D CT NEURO, UMP CT NEURO, RAD CT Computed Tomography 03/18/2024 7:27 AM CDT Impressions 03/18/2024 7:51 AM CDT IMPRESSION: HEAD CTA: 1. ??Normal CTA [place]. NECK CTA: 1. ??Plaque without stenosis at the internal carotid origins bilaterally. 2. ??Otherwise, normal neck CTA. Narrative 03/18/2024 7:51 AM CDT EXAM: CTA HEAD NECK WITH CONTRAST LOCATION: [facility] DATE: 03/18/2024 INDICATION: Headache, seizure; Headache; Acute [...] stenosis/occlusion, aneurysm, or high-flow vascular malformation. Standard [place] anatomy. POSTERIOR CIRCULATION: No stenosis/occlusion, [...] great vessels. NONVASCULAR STRUCTURES: Unremarkable. Procedure Note Brace, Yassine Levi, MD - 03/18/2024 EXAM: CTA HEAD NECK WITH CONTRAST LOCATION: [facility] DATE: 03/18/2024 INDICATION: Headache, seizure; Headache; Acute [...] No stenosis/occlusion, aneurysm, or high-flowvascular malformation. Standard [place] anatomy. POSTERIOR CIRCULATION: No stenosis/occlusion, [...] Unremarkable. IMPRESSION: HEAD CTA: 1. Normal CTA [place]. NECK CTA: 1. Plaque without stenosis at the internal carotid origins bilaterally. 2. Otherwise, normal neck CTA. Romelia Tariq DO IMG CT ORDERABLES * Head CT w/o contrast [...] CDT EXAM: CT HEAD W/O CONTRAST LOCATION: [facility] DATE: 03/18/2024 INDICATION: seizure COMPARISON: None. TECHNIQUE: [...] 03/18/2024 EXAM: CT HEAD W/O CONTRAST LOCATION: [facility] DATE: 03/18/2024 INDICATION: seizure COMPARISON: None. TECHNIQUE: [...] microvascular ischemic changes asabove. Romelia Tariq DO G CT ORDERABLES * EKG 12-lead, tracing only (03/18/2024 5:32 AM CDT) Systolic Blood Pressure mmHg RADIOLOGY RESULTS Diastolic Blood Pressure mmHg RADIOLOGY RESULTS Ventricular Rate 81 BPM RAD IOLOGY RESULTS Atrial Rate 81 BPM RADIOLOG Y RESULTS MI Interval 174 ms RADIOLOG Y RESULTS QRS Duration 96 ms RADIOLO GY RESULTS QT 366 ms RADIOLOGY RESULTS QTc 425 ms RADIOLOGY RESULTS P [place] 68 degrees RADIOLOGY RESULTS R AXIS 29 degrees RADIOLOGY RESULTS T [place] 52 degrees RADIOLOGY RESULTS Interpretation ECG Sinus rhythm Possible Left atrial enlargement Borderline ECG When compared with ECG of 06-May-2014 14:34, (unconfirmed) No significant change was found Confirmed by - EMERGENCY ROOM, PHYSICIAN ([id number]), content editor ANNE BELTRÁN ([id number]) on 03/19/2024 7:04:25 AM RADIOLOGY RESULTS 03/18/2024 5:32 AM CDT 03/19/2024 7:04 AM CDT Romelia Tariq DO ECG ORDERABLES Performing Organization Address City/[facility]/ZIP Co de Phone Number RADIOLOGY RESULTS * Extra Red Top Tube (03/18/2024 4:56 AM CDT) Hold Specimen [facility] 03/18/2024 6:06 AM CDT [facility] LAB[facility]AT[facility] Blood BLOOD SPECIMEN / Unknown Venipuncture / Unknown 03/18/2024 4:56 AM CDT 03/18/2024 5:00 AM CDT Romelia Tariq DO LAB - BLOOD ORDERA BLES Performing Organization Address City/[facility]/ZIP Co de Phone Number [facility] [address] Lab (1st floor, no room number) [address] * Extra Blue Top Tube (03/18/2024 4:56 AM CDT) Hold Specimen [facility] 03/18/2024 6:06 AM CDT [facility] Blood BLOOD SPECIMEN / Unknown Venipuncture / Unknown 03/18/2024 4:56 AM CDT 03/18/2024 5:00 AM CDT Romelia Tariq DO LAB - BLOOD ORDERA BLES Performing Organization Address City/[facility]/ZIP Co de Phone Number [facility] [address] Lab (1st floor, no room number) [address] * Hepatic panel (03/18/2024 4:56 AM CDT) [...] LAB - BLOOD ORDERA BLES [facility] LAB[facility]ATORY [facility] [address] Lab (1st floor, no room number) [place] [address], [facility] from Last 3 Months Advance Directives For more information, please contact: [phone] * Full Code (Latest Code Status on File) Date Activated Date Inactivated Comments 03/18/2024 5:30 PM 03/19/2024 9:08 PM All basic an d advanced life-sustaining interventions are performed as appropriate Question Answer Comments Code status determined by: Discussion with shaniquee nt/ legal decision maker Care Teams Casting Room Helper Relationship Specialty Start Date End Date [facility], [place] [address] PCP - General 03/18/24
--- OUTSIDE RECORDS SUMMARY | 2024-04-09 20:11 | XMS_ITS | Continuity of Care Document ---
Author Organization [facility] Address [address] [place] [phone] Phone Care Team Providers Care Laboratory Operations Coordinator Name Role Phone Will Jimi MUKHERJEE Unavailable Unavailabl e Medications Medication Instructions Dosage Effective Dates (start - stop) Status Comments Humira 40 mg/0.8 mL subcutaneous syringe kit inject 0.8 milliliter by subcutaneous route every 2 weeks - Active B12 5,000 mcg-100 mcg sublingual lozenge - Active Lipitor 20 mg tablet take 1 tablet by or al route every day 20 MG - Active gabapentin 300 mg capsule take 1 - 3 capsule by ORAL route 3 times every day 300 MG - Active Vitamin D3 2,000 unit capsule - Active Imuran 50 mg tablet take 1 Tablet by ora l route every day 50 MG - Active Remeron 45 mg tablet take 1 tablet by or al route every day before bedtime - Active Synthroid 125 mcg tablet take 2 tablet by oral route every day 250 MCG - Active Procedures Procedure Date Drug test def 22+ classes Drug Urine Toxology With Chromatography OFFICE/OUTPATIENT VISIT, EST Psych Dx Eval OFFICE CONSULTATION Advance Directives Directive Yes / No Effective Date File Name No Information Encounters Encounter Description Practice Location Reason(s) For Visit Diagnoses Date Provider Providers Copied on Encounter [facility], [address] [place] [address], [id number] , [place] tel:[phone] [facility] No Information 2 Will Jimi. [address] [place], [place], [id number], [place]. tel:[phone] OFFICE/OUTPAT IENT VISIT, EST [facility], [address] [place] [address], [id number] , [place] tel:[phone] [facility] Lidia Back Pain (chief complaint) Postlaminectomy syndrome, not elsewhere classifiedRadicu lopathy, lumbar regionOther jail (current) drug therapy 8 Lashaun Polanco. [address] [place] [address], [id number], [place]. tel:[phone] Specialist: Emmanuel Vargas MD, [facility] [address], [place], [address]. tel:[phone] alist: Ryland Villeda, [address] [place] [address] [address], [place], [address]. tel:[phone] alist: Koko BAEZ [facility], [address] [place] [address], [address]. tel:[phone] [facility] Provider: Fernandez Lewis, [facility] [address] [place], [address]. tel:[phone] Psych Dx Eval [facility], [address] [place] [address], [id number] , [place] tel:[phone] [facility] Other pain disorders related to psychological factors No Information Referring Provider: Fernandez Lewis, [facility] [address] [facility], [place], [address]. tel:[phone] OFFICE CONSULTATION [facility], [address] [place] [address], [id number] , [place] tel:[phone] [facility] [place] Back Pain (chief complaint) Postlaminectomy syndrome of lumbar regionDegenerati on of thoracic or thoracolumbar intervertebral discRadiculitis, Thoracic or Lumbar 5 No Tractor Mechanic: Emmanuel Vargas MD, [facility] [address], [place], [address]. tel:[phone] alist: Ryland Villeda, [address] [place] [address] [address], [place], [address]. tel:[phone] alist: Koko Leal [facility], [address] [facility], [place], [address]. tel:[phone] ring Provider: Fernandez Lewis, [facility] [address] [facility], [place], [address]. tel:[phone] Family History Family Member Type Diagnosis Age At Onset No Information Payers Payer name Insurance type Covered alliance party ID Colin king(s) [employer] [id number] Social History Type Description Quantity Date Captured Comments Sex Male Smoking Status No Information Chief Complaint And Reason For Visit No Information Reason For Referral Reason For Referral No Information Plan Of Treatment Date Type Action Status Future Order: Lab Order [facility] DRUG ANALYSIS, URINE, WITH MED REPORT ([id number]), Ordered on: Ordered History Of Present Illness Encounter Date Complaint History Of Prese nt Illness Back Pain (comments) Patient is here for follow-up. Patient has not been seen since initial consult on 11-15-14. Since being seen he went to [facility] and met with Dr. Dsouza. He had a Nevro SCS implant in June 2016. Has had numerous reprogrammings with no relief. Turned off his stimulator June 2017. Dr. Dsouza also certified him for medical cannabis for Crohn's Disease, which he has been using for the past couple years. Unfortunately, patient states that this does not help his back pain at all. Patient is currently doing PT at [facility], but is not getting any relief. Has also been in contact with Dr. Vincent at [facility] who does not want to touch his stimulator since it is a Nevro product. Was given a list of certifying clinics from [facility] and he just chose this clinic off the list." Stated that it will be up to this clinic if I should get the SCS removed. Back Pain Severity level i s 9. Duration: chronic. The problem is worsening. It occurs persistently. Location of pain is lower back. Pain is radiated to the right calf, right foot and right thigh.The patient describes the pain as an ache, burning and numbness. Symptoms are aggravated by ascending stairs, bending, descending stairs, lifting, running, sitting, standing, twisting, walking and housework. Symptoms are relieved by lying down and rest. Back Pain Onset: 5 years a go. Severity level is 10. Duration: chronic. The problem is fluctuating. It occurs persistently. Location of pain is lower back. Pain is radiated to the right calf, right foot and right thigh.The patient describes the pain as an ache, burning, numbness and pins and needles. Symptoms are aggravated by activity. Symptoms are relieved by ice and lying down. Back Pain (comments) Pt is new t o the clinic and was referred by Dr. Vargas for evaluation of his pain. He describes low back pain of insidious onset, perhaps started around 2009. He also has right leg radicular pain. He has tried an number of treatments including injections, PT, and chiropractic without any relief. In addition he has tried a number of medications without benefit including lyrica, topamax, gabapentin, and currently amitriptyline. He notes opioids are not a good option for him as he needs to take a large amount to get any relief. He has been briefly introduced to the spinal cord stimulator but is leary of this option. Functional Status Date Functional Assessmen t No Information Instructions Date Instruction Additional Infor mation No Information Assessments Type Assessment Date No Information Patient Care Teams Name Effective Dates (start - stop) Status Members No Information
--- OUTSIDE RECORDS SUMMARY | 2024-04-09 20:12 | XMS_ITS | Encounter Summary ---
[facility] Address [address] [place] [address] Care Team Providers Care Dock Manager Name Role Phone Anderson Jacobo MD Primary Care Provider [phone] Encounter Details Date Type Department Care Team (Late Contact Info) Description 01/26/2024 8:30 AM CDT Lab Visit [facility] [address] [place] [address] Encounter for long-term (current) use of medications Social History Tobacco Use Types Packs/Day Years Used Date Smoking Tobacco: Never Smokeless Tobacco: Never Alcohol Use Standard Drinks/Week Comments No 0 (1 standard drink = 0.6 oz pur e alcohol) PHQ-2 Answer Date Recorded PHQ-2 Score 0 01/11/2024 Sex and Gender Information Value Date Recorded Sex Assigned at Not on file Gender Identity Not on file Sexual Orientation Not on file documented as of this encounter Plan of Treatment Upcoming Encounters Date Type Department Care Team (Late Contact Info) Description 05/03/2024 10:00 AM CDT Appointment [facility] [address] [place] [address] 06/01/2024 10:30 AM HAND ROLLER Appointment [facility] [address] [place] [address] 06/28/2024 10:30 AM HAND ROLLER Appointment [facility] [address] [place] [address] 03/12/2025 8:15 AM CDT Appointment [facility] [address] [place] [address], [place] [address] Miki Lamas MD [facility] [place], [place] [id number] documented as of this encounter Procedures Procedure Name Priority Date/Time Associated Diagnosis Comments LIPID PANEL & DIRECT LDL (IF NEEDED) Routine 01/26/2024 8:51 AM CDT Encounter for long-term (current) use of medications HGB A1C Routine 01/26/2024 8:51 AM CDT Encounter for long-term (current) use of medications documented in this encounter Results * Lipid Panel and Direct LDL(If Needed) (01/26/2024 8:51 AM CDT) [facility] Cholesterol 154 0 - 199 mg/dL 01/26/2024 3:39 PM [facility] Triglyceride 98 <=149 mg/dL 01/26/2024 3:39 PM [facility] HDL Cholesterol 57 >=40 mg/dL 3:39 PM [facility] LDL, Calculated 77 <130 mg/dL 3:39 PM [facility] Non HDL Chol, Calculated 97 <=159 mg/dL 01/26/2024 3:39 PM [facility] Cholesterol/HDL Ratio 2.7 <=5.0 01/26/2024 3:39 PM [facility] Hours Fasting 0.1 8 - 12 Hours 01/26/2024 3:39 PM [facility] Comment:Lab unable to obtain patient's fasting status at time of specimen collection. Blood Venipuncture / Unknown 01/26/2024 8:51 AM CDT 01/26/2024 8:52 AM CDT Ania Chauhan MD LAB_1 [facility] [address] [place] [address], [facility] * Hgb A1c (01/26/2024 8:51 AM CDT) Hemoglobin A1C 5.6 <=5.6 % 01/26/2024 5:29 PM CDT [facility] Estimated Average Glucose (Calc) 114 < 117 mg/dL 01/26/2024 5:29 PM CDT [facility] Comment:Estimated average gl ucose (eAG) converts A1c into glucose units (mg/dL) and estimates average glucose over the past approximately 3 months. The eAG reference interval (<117 mg/dL) corresponds to an A1c of <5.7%. Blood Venipuncture / Unknown 01/26/2024 8:51 AM CDT 01/26/2024 8:52 AM CDT Ania Chauhan MD LAB_1 [facility] [address] documented in this encounter Visit Diagnoses Diagnosis Encounter for long-term (current) use of medications Encounter for long-term (current) use of other medications documented in this encounter Care Teams Dock Manager Relationship Specialty Start Date End Date Anderson Jacobo MD [address] [place] [address] PCP - General 03/04/16 documented as of this encounter
--- OUTSIDE RECORDS SUMMARY | 2024-04-09 20:12 | XMS_ITS | Encounter Summary ---
[facility] Organization [facility] Address [address] [place] [address] Care Team Providers Care Human Intelligence Name Role Phone Anderson Jacobo MD Primary Care Provider [phone] Reason for Visit * Reason Comments Infusion * Infusion Therapy Plan (Routine) - Authorized Specialty Diagnoses / Procedures Referred By Contsukumar t Referred To Contact Diagnoses Crohn's disease of both small and large intestine without complication (HRC) Doyle Self MD [address] [place] [address] [id number] [place] [address]. [place] [address] Referral ID Status Reason Start Date Expiration Date V isits Requested Visits Authorized [id number] Authorized 09/20/2018 08/30/2024 [id number] Encounter Details Date Type Department Care Team (Latest Contact Info) Description 02/10/2024 12:55 PM CDT - 02/10/2024 11:59 PM CDT Hospital Encounter [facility] [address] [place], [place] [id number] Doyle Carter MD [address] [place], [place] [id number] Crohn's disease of both small and large intestine without complication (HRC) (Primary Dx) Social History Tobacco Use Types Packs/Day Years [...] Sign Reading Time Taken Comments Blood Pressure 127/83 02/10/2024 2:29 PM CDT Pulse 78 02/10/2024 2:29 PM CDT Temperature 37 ??C (98.6 ??F) 02/10/2024 1:15 PM CDT Respiratory Rate - - Oxygen Saturation - - Inhaled Oxygen Concentration - - Weight 98.9 kg (218 lb) 02/10/2024 1:14 PM CDT Height - - Body Mass Index 28.76 01/11/2024 9:58 AM CDT documented in this encounter Medications at Time of Discharge Medication Sig Dispensed Refills Start Date End Date acetaminophen (TYLENOL) 325 MG tablet Take 1-2 Tablets (325-650 mg) by mouth every 4 hours as needed for Pain. ARIPiprazole (ABILIFY) 2 MG tablet Take 1 Tablet (2 mg) by mouth daily. 90 Tablet 3 01/11/2024 aspirin EC (ASPIR-LOW) 81 MG enteric coated tablet Take 1 Tablet (81 mg) by mouth daily. 11/15/2023 atorvastatin (LIPITOR) 20 MG tabletIndications:Crohn 's disease of both small and large intestine without complication (HRC) Take 1 Tablet (20 mg) by mouth daily. 3 05/23/2017 calcipotriene (DOVONEX) 0.005 % cream Mix equal parts with Efudex 1:1 ratio and apply thin layer to face twice daily for 5 days 60 g 08/19/2021 cholecalciferol (VITAMIND3) 2000 UNITS tabletIndications:Crohn 's disease of ileum, with intestinal obstruction (HRC) Take 1 tablet by mouth daily (every 24 hours). 90 tablet 3 03/05/2015 [facility] VITAMIN B12 1000 MCG tablet TAKE 1 TABLET BY MOUTH DAILY (EVERY 24 HOURS). 90 Tab 3 03/25/2016 desvenlafaxine succinate (PRISTIQ) 50 MG 24 hour release tablet Take 1 Tablet (50 mg) by mouth daily. 90 Tablet 3 01/11/2024 diclofenac (VOLTAREN) 1 % gel Apply 2 g to skin 4 times a day. fluticasone propionate (FLONASE) 50 MCG/ACT nasal solution INHALE 2 SPRAYS INTO AFFECTED NOSTRILS ONCE DAILY 01/26/2021 HYDROcodone-acetaminoph en (NORCO) 5-325 MG tablet Take 1 Tablet by mouth every 6 hours as needed for Pain. 10 Tablet 12/16/2021 ibuprofen (MOTRIN) 400 MG tablet Take 1 Tablet (400 mg) by mouth every 6 hours as needed for Pain. inFLIXimab (REMICADE) injectionIndications:ev thomas 4 weeks Indications: every 4 weeks 09/22/2020 levothyroxine (SYNTHROID) 200 MCG tablet Take 1 Tablet (200 mcg) by mouth before breakfast. 12/07/2022 mirtazapine (REMERON) 45 MG tablet TAKE 1 TABLET BY MOUTH EVERY NIGHT AT BEDTIME. 90 Tablet 3 01/11/2024 Multiple Vitamins-Minerals (PRESERVISION AREDS 2) CAPS Take 2 Capsules by mouth two times a day. sildenafil (VIAGRA) 50 MG tablet Take 1 Tablet (50 mg) by mouth daily. 30 Tablet 2 01/11/2024 triamcinolone acetonide (KENALOG) 0.1 % cream Apply twice daily x 5-7 days 15 g 02/28/2022 pregabalin (LYRICA) 100 MG capsule TAKE 1 CAPSULE(100 MG) BY MOUTH THREE TIMES DAILY 90 Capsule 5 08/11/2023 03/12/2024 documented as of this encounter Progress Notes * Jason Diaz RN - 02/10/2024 1:30 PM CDT Images from the original note were not included. Dx: Crohn's Disease Provider: Dr. Self Is this the first dose: No History of previous infusion reactions? No Premedications: None Patient arrived for Remicade infusion. Infused over 1 hours per standard rapid infusion protocol. Pt tolerated infusion without incidence. Returns in 4 weeks for next infusion. Discharge instructions reviewed. documented in this encounter Plan of Treatment Upcoming Encounters Date Type Department Care Team (Late st Contact Info) Description 05/03/2024 10:00 AM CDT Appointment [facility] [address] [place] [address] 06/01/2024 10:30 AM DROSS PULLER Appointment [facility] [address] [place] [address] 06/28/2024 10:30 AM DROSS PULLER Appointment [facility] [address] [place] [address] 03/12/2025 8:15 AM CDT Appointment [facility] [address] [place] [address] Miki Lamas MD [address] [place], [place] [phone] documented as of this encounter Visit Diagnoses Diagnosis Crohn's disease of both small and large intestine without complication (HRC)- Primary Regional enteritis of small intestine with large intestine documented in this encounter Administered Medications Inactive Administered Medications - up to 3 most recent administrations Medication Order MAR Action Action Date Dose Rate Site inFLIXimab (REMICADE) 1,000 mg in sodium chloride 0.9 % 250 mL IVPB 1,000 mg (rounded from 989 mg = 10 mg/kg ? 98.9 kg), Intravenous, Administer over 1-2 Hours, ONCE, On Tue02/10/24 at 1345, For 1 dose Started 02/10/2024 1:24 PM CDT 1,000 mg sodium chloride 0.9% injection 10-60 mL 10-60 mL, Intravenous, PRN BEFORE&AFTER MEDICATIONS OR LAB DRAW, Line Patency, Starting on Tue02/10/24 at 1315, Until Tue02/10/24 at 1647, For 1 day Given 02/10/2024 2:28 PM CDT 10 mL documented in this encounter Care Teams Human Intelligence Relationship Specialty Start Date End Date Anderson Jacobo MD [address] [place] [address] PCP - General 03/04/16 documented as of this encounter
--- OUTSIDE RECORDS SUMMARY | 2024-04-09 20:12 | XMS_ITS | Patient Health Record ---
Author Organization [facility] - Primary Address [address] [place] [id number] Care Team Providers Care Pump Tester Name Role Phone Different, PCP Primary Care Provider Unavailabl e ALLERGIES No Known Allergies REASON FOR REFERRAL No Information MEDICATIONS Medication SIG (Take, Route, Fr equency, Duration) Notes Start Date End Date Status atorvastatin 20 mg 1 tab(s) orally once a day for 30 day(s) 05/30/2020 Active Remicade 100 mg as directed intraven ously every 8 weeks for 16 week(s) 05/30/2020 Active Lyrica 100 mg 1 cap(s) orally 2 times a day Active sertraline Active mirtazapine 45 mg TK 1 T PO D AT BEDTIME for 90 Active Vitamin B-12 500 mcg 1 tab(s) orally onc e a day for 30 day(s) 05/30/2020 Active SOCIAL HISTORY Sex Assigned At : Social History Observation Description Sex Assigned At Unknown PROBLEMS Problem Type ICD Code Onset Dates Problem Status W/U Status Risk SNOMED Code Notes Problem Major depressive disorder, recurrent severe without psychotic features (F33.2) Active confirmed Severe recurrent major depression without psychotic features (62257579) Problem Low back pain (M54.5) Active confirmed Low back pain (828310563) Problem Crohn's disease of small intestine without complications (K50.00) Active confirmed Crohn's disease of small intestine (53033329) PLAN OF TREATMENT No Information Insurance Providers Payer Name Payer Address Payer Phone Subscriber Number Group Number Insured Name Patient Relationship to Insured Coverage Start Date Coverage End Date Medicare Part B [employer] CLAIM [address] [place] [address] [id number] Jez Arechiga Self - patient is the insured [employer] [address] [address] [place] [address] [phone] [id number] Jez Arechiga Self - patient is the insured MEDICAL (GENERAL) HISTORY Medical History History ICD Code crohns Surgical History Surgery Date(Month/Year)
--- OUTSIDE RECORDS SUMMARY | 2024-04-09 20:12 | XMS_ITS | Encounter Summary ---
Author Organization [facility] Address [address] [place] [address] Care Team Providers Care Account Installer Name Role Phone Anderson Jacobo MD Primary Care Provider [phone] Reason for Visit * Reason Comments Infusion Encounter Details Date Type Department Care Team (Latest Contact Info) Description 03/08/2024 10:07 AM CDT - 03/08/2024 11:59 PM CDT Hospital Encounter [facility] [address] [place] [address] Saman Flor MD [address] [place] [id number] Crohn's disease of both small and large [...] Sign Reading Time Taken Comments Blood Pressure 126/78 03/08/2024 12:00 PM CDT Pulse 70 03/08/2024 12:00 PM CDT Temperature 36.5 ??C (97.7 ??F) 03/08/2024 1 0:30 AM CDT Respiratory Rate - - Oxygen Saturation 98% 03/08/2024 10: 30 AM CDT Inhaled Oxygen Concentration - - Weight 99.2 kg (218 lb 11.2 oz) 024 10:30 AM CDT Height - - Body Mass Index 28.85 01/11/2024 9:58 AM CDT documented in this [...] hours as needed for Pain. inFLIXimab (REMICADE) injectionIndications:kathryn guzman 4 weeks Indications: every 4 weeks 09/22/2020 [...] as of this encounter Progress Notes * Elizabeth Haines RN - 03/08/2024 10:30 AM CDT Dx: regional enteritis Provider: Aramis Is this the first dose: no History of previous infusion reactions? no Premedications: no Patient arrived for remicade infusion. Infused over 1 hours per standard rapid infusion protocol. Pt tolerated infusion without incidence. Returns 04/06/24 for next infusion. Discharge instructions reviewed. documented in this encounter Plan of Treatment Upcoming Encounters Date Type Department Care Team (Late st Contact Info) Description 05/03/2024 10:00 AM CDT Appointment [facility] [address] [place] [id number] 06/01/2024 10:30 AM PYROTECHNIC MIXER Appointment [facility] [address] [place] [address] 06/28/2024 10:30 AM PYROTECHNIC MIXER Appointment [facility] [address] [place] [address] 03/12/2025 8:15 AM CDT Appointment [facility] [address] [place] [id number] Miki Lamas MD [address] [place], [place] [address] documented as of this encounter Visit Diagnoses [...] 250 mL IVPB 1,000 mg (rounded from 992 mg = 10 mg/kg ? 99.2 kg), Intravenous, Administer over 1-2 Hours, ONCE, On Gifty 03/08/24 at 1100, For 1 dose Started 03/08/2024 10:44 AM CDT 1,000 mg sodium chloride 0.9% injection 10-60 mL 10-60 mL, Intravenous, PRN BEFORE&AFTER MEDICATIONS OR LAB DRAW, Line Patency, Starting on Gifty 03/08/24 at 1031, Until Gifty 03/08/24 at 1405, For 1 day Given 03/08/2024 12:00 PM CDT 10 mL Given 03/08/2024 10:38 AM CDT 10 mL documented in this encounter Care Teams Account Installer Relationship Specialty Start Date End Date Anderson Jacobo MD [address] [place] [address] PCP - General 03/04/16 documented as of this encounter
--- OUTSIDE RECORDS SUMMARY | 2024-04-09 20:12 | XMS_ITS | Encounter Summary ---
Author Organization [facility] Address [address] [place] [address] Care Team Providers Care Retail Team Member Name Role Phone Presley, [facility] Primary Care Provider Reason for Referral * Consultation (Priority: 1-2 Weeks) - Pending Review Specialty Diagnoses / Procedures Referred By William appiah Referred To Contact Diagnoses Seizure (H) Romelia Tariq DO [facility] [place] [address] [facility] [address] Referral ID Status Reason Start Date Expiration Date V isits Requested Visits Authorized [id number] Pending Review 03/18/2024 03/18/2025 1 1 Question Answer Reason for Referral: General Neurology Scheduling Instructions: [facility] will call you to coordinate your care as prescribed by your provider. If you don't hear from a franchise sales representative within 2 business days, please call . Comments Please be aware that coverage of these services is subject to the terms and limitations of your health insurance plan. Call member services at your health plan with any benefit or coverage questions. [facility] will call you to coordinate your care as prescribed by your provider. If you don't hear from a franchise sales representative within 2 business days, please call . Reason for Visit * Reason Comments Seizures * Auth/Cert (Routine) Specialty Diagnoses / Procedures Referred By Contsukumar appiah Referred To Contact Med Surg Diagnoses New onset seizure (H) New onset seizure (H) Rh 3 Medical Surgical [address] [facility] [place] [address] Referral ID Status Reason Start Date Expiration Date Visits Re quested Visits Authorized [id number] 1 1 Encounter Details Date Type Department Care Team (Late st Contact Info) Description 03/18/2024 4:41 AM CDT - 03/18/2024 9:01 AM CDT Emergency [facility] [address] [facility] [place] [id number] Romelia Tariq DO [facility] [place] [address] [place] [address] Keith Rodriguez MD [facility] [place] [address] [place] [id number] Seizure (H) Discharge Disposition: Home or Self [...] Date Recorded Do you have housing? (Devin g is defined as stable permanent housing and does not include staying ouside in a car, in a tent, in an abandoned building, in an overnight alf, or couch-surfing.) No 03/18/2024 Are you worried [...] Sign Reading Time Taken Comments Blood Pressure 122/74 03/18/2024 8:45 AM CDT Pulse 79 03/18/2024 8:45 AM CDT Temperature 36.2 ??C (97.1 ??F) 03/18/2024 4:50 AM CD T Respiratory Rate 18 03/18/2024 4:50 AM CDT Oxygen Saturation 96% 03/18/2024 8:30 AM CDT Inhaled Oxygen Concentration - - Weight - - Height - - Body Mass Index - - documented in this encounter Discharge Instructions * Discharge Instructions* Romelia Tariq DO - 03/18/2024 6:34 AM CDT This patient was evaluated for a seizure today. I have advised the patient of the following: no driving for 6 months and may only return to driving if cleared by personal medical provider, no climbing heights, operating heavy machinery, cooking, bathing and being involved in activities that may be dangerous to self or others should you have a seizure. * Attachments The following attachments cannot be sent through Care Everywhere. * Seizure ([place]) documented in this encounter Medications at Time of Discharge Medication Sig Dispensed Refills Start Date End Date Cyanocobalamin (VITAMIN B 12 PO) Take 1,000 mcg by mouth daily levETIRAcetam (KEPPRA) 500 MG tabletIndications:New onset seizure (H) Take 1 tablet (500 mg) by mouth 2 times daily. 60 tablet 03/19/2024 levothyroxine (SYNTHROID/LEVOTHROID) 200 MCG tablet Take 200 mcg by mouth daily. Mirtazapine (REMERON PO) Take 45 mg by mouth At Bedtime VITAMIN D, CHOLECALCIFEROL, PO Take 10,000 Units by mouth once a week. on Tuesday documented as of this encounter ED Notes * Keith Rodriguez MD - 03/18/2024 8:35 AM CDT Patient was endorsed to me at end of shift by Dr. Tariq. Patient presented with a first-time seizure and had negative workup up to this point. He did have persistent headache so she ordered CTA ofthe head and neck which does not show any signs of aneurysm. He does have small nonocclusive plaques but no other acute findings. I reevaluated the patient and his headache had resolved and he was feeling improved. Patient will be discharged with outpatient neurology follow-up and we discussed return precautions. Keith Rodriguez MD 03/18/24 0835 * Romelia Tariq DO - 03/18/2024 5:37 AM CDT Emergency Department Note History of Present Illness Chief Complaint Seizures HPI Jez Arechiga is a 63 year old male who presents with seizures. Patient's notes the onset ofthe patient's seizure at 0400 this morning while he was sleeping. notes that the patient had atonic clonic seizure for roughly 5 minutes. reports that the patient did eventually open his eyes but was immediately confused. reports that the patient was incontinent of his urine. No reported head trauma. She states that he became continually more responsive and was responsive with EMTupon their arrival. She notes that the patient's mental status is normal at the emergency department. Patient notes that he does not recall his seizure and had a lapse of memory up until he was greeted by EMS. Patient endorses a headache. He endorses a history of alcohol use, stating that he has upwards of two drinks on a near-daily basis. He denies a history of alcohol withdrawal. He denies any recent medication changes.He denies a history of regular pain medication use. He denies fevers. He denies chest pain, shortness of breath. No speech changes, focal weakness, paresthesias. He reports mild frontal headache at bedside. No history seizures. Independent Historian None Review of External Notes 03/08/24 OP visit Past Medical History Medical History and Problem List Hypothyroidism Anxiety Brachial neuritis Chondromalacia Chronic pain syndrome Crohn's disease of small intestine Degenerative lumbar disc disease Depression H/O dysplastic nevus H/O nonmelanoma skin cancer Intestinal obstruction Myelomalacia PTSD Cervical spondylosis Medications Imuran Synthroid Remeron Prednisone Surgical History Cervical spinal fusion Physical Exam Patient Vitals for the past 24 hrs: BP Temp Temp src Pulse Resp SpO2 03/18/24 0519 -- -- -- 79 -- 94 % 03/18/24 0518 -- -- -- 86 -- 93 % 03/18/24 0450 119/83 97.1 ??F (36.2 ??C) Temporal 83 18 92 % Physical Exam General: Well-nourished, nontoxic Eyes: PERRL, EOMI, no nystagmus. No scleral icterus or conjunctival injection. ENT: Moist mucus membranes, posterior oropharynx clear without erythema or exudates. TM normal bilaterally; L. Lateral tongue abrasion Neck: Supple with full range of motion Respiratory: Lungs clear to auscultation bilaterally, no crackles/rubs/wheezes. Good air movement CV: Normal rate and rhythm GI: Abdomen soft and non-distended. No tenderness, guarding or rebound Skin: Warm, dry. No rashes or petechiae MSK: No peripheral edema or calf tenderness Neuro: Alert and oriented to person/place/time. No aphasia/facial droop/dysarthria. Tongue midline,normal strength at SCM/trapezius/BUE/BLE. Normal finger to nose. Normal gait. Sensation intact overface/BUE/BLE Psychiatric: Normal affect Diagnostics Lab Results Labs Ordered and Resulted from Time of ED Arrival to Time of ED Departure BASIC METABOLIC PANEL - Abnormal Result Value Sodium 139 Potassium 3.8 Chloride 107 Carbon Dioxide (CO2) 19 (*) Anion Gap 13 Urea Nitrogen 22.0 Creatinine 1.04 GFR Estimate 80 Calcium 8.8 Glucose 127 (*) HEPATIC FUNCTION PANEL - Normal Protein Total 7.2 Albumin 3.8 Bilirubin Total 0.2 Alkaline Phosphatase 58 AST 26 ALT 25 Bilirubin Direct <0.20 CBC WITH PLATELETS AND DIFFERENTIAL WBC Count 8.6 RBC Count 4.67 Hemoglobin 13.8 Hematocrit 42.7 MCV 91 MCH 29.6 MCHC 32.3 RDW 13.6 Platelet Count 212 % Neutrophils 50 % Lymphocytes 41 % Monocytes 6 % Eosinophils 1 % Basophils 0 % Immature Granulocytes 1 NRBCs per 100 WBC 0 Absolute Neutrophils 4.3 Absolute Lymphocytes 3.5 Absolute Monocytes 0.5 Absolute Eosinophils 0.1 Absolute Basophils 0.0 Absolute Immature Granulocytes 0.1 Absolute NRBCs 0.0 GLUCOSE MONITOR NURSING POCT Imaging Head CT w/o contrast Final Result IMPRESSION: 1. No CT evidence for acute intracranial process. 2. Brain atrophy and presumed chronic microvascular ischemic changes as above. CTA Head Neck with Contrast (Results Pending) EKG ECG taken at 0532, ECG read at 0532 Normal sinus rhythm Possible Left atrial enlargement Rate 81 bpm. WI interval 174 ms. QRS duration 96 ms. QT/QTc 366/425 ms. P-R-T axes [address] Head: No intracranial hemorrhage or midline shift. ED Course Medications Administered Medications - No data to display Procedures Procedures Discussion of Management None ED Course ED Course as of 03/18/24 0601 [place] Mar 18, 2024 0550 I obtained history and examined the patient as noted above Additional Documentation None Medical Decision Making / Diagnosis [facility] Diagnoses: None MIPS None MDM Jez Arechiga is a 63 year old male presenting for seizure. Patient without obvious focal neuro deficits on exam, nontoxic, in no significant distress. EKG without underlying arrhythmia. Labs overall reassuring without significant metabolic derangements. CT head negative. Upon reevaluation, patient continued to have persistent headache. Additional analgesia, benadryl and compazine provided and plan for CTA head/neck. Should this be unremarkable and patient report improvements, will likely dispo with neurology referral. This patient was evaluated for a seizure today. I have advised the patient of the following: no driving for 6 months and may only return to driving if cleared by personal medical provider, no climbing heights, operating heavy machinery, cooking, bathing and being involved in activities that may be dangerous to self or others should you have a seizure. Disposition Care of the patient was transferred to my colleague Dr. Rodriguez pending CTA head/neck and dispo. Diagnosis ICD-10-CM 1. Seizure (H) R56.9 Adult Neurology Help Desk Manager Referral Discharge Medications New Prescriptions No medications on file Scribe Disclosure: I, Scio Mirkazemi, am serving as a scribe at 5:42 AM on 03/18/2024 to document services personallyperformed by Romelia Tariq DO based on my observations and the provider's statements to me. Romelia Tariq DO 03/18/24 0740 * Mimi Guzmán RN - 03/18/2024 4:51 AM CDT Pt BIBA from home. Woke up w/ seizure. Per EMS reports pt was seizing for about 5 minutes, appeared to be grand mal & pt urinated self. Pt now VSS, but appears to be still post-ictal. Pt disoriented to time & has intermittent confusion. Pt has generalized weakness. No hx of seizures, hx of Chron's. Triage Assessment (Adult) Row Name 03/18/24 0451 Triage Assessment Airway WDL WDL Respiratory WDL Respiratory WDL WDL Skin Circulation/Temperature WDL Skin Circulation/Temperature WDL WDL Cardiac WDL Cardiac WDL WDL Peripheral/Neurovascular WDL Peripheral Neurovascular WDL WDL Cognitive/Neuro/Behavioral WDL Cognitive/Neuro/Behavioral WDL X Level of Consciousness intermittent confusion Orientation disoriented to;time Pupils (CN II) Pupil PERRLA yes Pupil Size Left 3 mm Pupil Size Right 3 mm * Freda Stearns RN - 03/18/2024 4:41 AM CDT Bed: [facility] Expected date: Expected time: Means of arrival: Comments: Seizure documented in this encounter Plan of Treatment Scheduled Referrals Name Type Priority Associated Diagnoses Orde r Schedule Adult Neurology Help Desk Manager Referral Referral Priority: 1-2 Weeks Seizure (H) Expected: 03/18/2024 (Approximate), Expires: 03/18/2025 documented as of this encounter Procedures Procedure Name Priority Date/Time Associated Diagnosis Comments CTA HEAD NECK W CONTRAST STAT 03/18/2024 7:[address] HEAD W/O CONTRAST STAT 03/18/2024 5:45 AM CDT EKG 12-LEAD, TRACING ONLY STAT 03/18/2024 5:32 AM CDT EXTRA TUBE STAT 03/18/2024 4:56 AM CDT EXTRA RED TOP TUBE STAT 03/18/2024 4: 56 AM CDT EXTRA BLUE TOP TUBE STAT 03/18/2024 4 :56 AM CDT CBC WITH PLATELETS AND DIFFERENTIAL STAT 03/18/2024 4:56 AM CDT CBC WITH PLATELETS & DIFFERENTIAL STAT 03/18/2024 4:56 AM CDT HEPATIC FUNCTION PANEL Add-On 03/18/2024 4:56 AM CDT BASIC METABOLIC PANEL STAT 03/18/2024 4:56 AM CDT documented in this encounter Results * CTA Head Neck with Contrast (03/18/2024 7:27 AM CDT) Anatomical Region Laterality Modality Head, SUBRAD CT NEURO, SUBRA D CT NEURO, UMP CT NEURO, RAD CT Computed Tomography 03/18/2024 7:27 AM CDT Impressions 03/18/2024 7:51 AM CDT IMPRESSION: HEAD CTA: 1. ??Normal CTA [place]. NECK CTA: 1. ??Plaque without stenosis at the internal carotid origins bilaterally. 2. ??Otherwise, normal neck CTA. Narrative 03/18/2024 7:51 AM CDT EXAM: CTA HEAD NECK WITH CONTRAST LOCATION: [facility] DATE: 03/18/2024 INDICATION: Headache, seizure; Headache; Acute [...] stenosis/occlusion, aneurysm, or high-flow vascular malformation. Standard [place] anatomy. POSTERIOR CIRCULATION: No stenosis/occlusion, [...] EXAM: CTA HEAD NECK WITH CONTRAST LOCATION: [facility] DATE: 03/18/2024 INDICATION: Headache, seizure; Headache; Acute [...] No stenosis/occlusion, aneurysm, or high-flowvascular malformation. Standard [place] anatomy. POSTERIOR CIRCULATION: No stenosis/occlusion, [...] Unremarkable. IMPRESSION: HEAD CTA: 1. Normal CTA [place]. NECK CTA: 1. Plaque without stenosis at the internal carotid origins bilaterally. 2. Otherwise, normal neck CTA. Romelia Tariq DO [facility] [place] CT ORDERABLES * Head CT w/o contrast [...] CDT EXAM: CT HEAD W/O CONTRAST LOCATION: [facility] DATE: 03/18/2024 INDICATION: seizure COMPARISON: None. TECHNIQUE: [...] 03/18/2024 EXAM: CT HEAD W/O CONTRAST LOCATION: [facility] DATE: 03/18/2024 INDICATION: seizure COMPARISON: None. TECHNIQUE: [...] Atrial Rate 81 BPM RADIOLOG Y RESULTS WI Interval 174 ms RADIOLOG Y RESULTS QRS Duration 96 ms RADIOLO GY RESULTS QT 366 ms RADIOLOGY RESULTS QTc 425 ms RADIOLOGY RESULTS P [place] 68 degrees RADIOLOGY RESULTS R AXIS 29 degrees RADIOLOGY RESULTS T [place] 52 degrees RADIOLOGY RESULTS Interpretation ECG Sinus rhythm Possible Left atrial enlargement Borderline ECG When compared with ECG of 06-May-2014 14:34, (unconfirmed) No significant change was found Confirmed by - EMERGENCY ROOM, PHYSICIAN ([id number]), commissioning editor ANNE BELTRÁN (Cipriano) on 03/19/2024 7:04:25 AM RADIOLOGY RESULTS 03/18/2024 5:32 AM CDT 03/19/2024 7:04 AM CDT Romelia Tariq DO ECG ORDERABLES RADIOLOGY RESULTS * Hepatic panel (03/18/2024 4:56 AM CDT) [...] Tariq DO LAB - BLOOD ORDERA BLES [facility] Lab [address] Lab (1st floor, no room number) [place] [address] * Extra Red Top Tube (03/18/2024 4:56 AM CDT) Hold Specimen [facility] 03/18/2024 6:06 AM CDT [facility] Blood BLOOD SPECIMEN / Unknown Venipuncture / Unknown 03/18/2024 4:56 AM CDT 03/18/2024 5:00 AM CDT Romelia Tariq DO LAB - BLOOD ORDERA BLES Performing Organization Address [facility]/ZIP Co de Phone Number [facility] [address] Lab (1st floor, no room number) [place] [address], [facility] * Extra Blue Top Tube (03/18/2024 4:56 AM CDT) Hold Specimen [facility] 03/18/2024 6:06 AM CDT [facility] Blood BLOOD SPECIMEN / Unknown Venipuncture / Unknown 03/18/2024 4:56 AM CDT 03/18/2024 5:00 AM CDT Romelia Tariq DO LAB - BLOOD ORDERA BLES Performing Organization Address City/[facility]/ZIP Co de Phone Number [facility] [address] Lab (1st floor, no room number) [place] [address], [facility] * CBC with platelets and differential (03/18/2024 4:56 AM CDT) WBC Count 8.6 4.0 - 11.0 10e3/uL 03/18/2024 5:27 AM CDT [facility] RBC Count 4.67 4.40 - 5.90 10e6/uL 03/18/2024 5:27 AM CDT [facility] Hemoglobin 13.8 13.3 - 17.7 g/dL 03/18/2024 5:27 AM CDT [facility] Hematocrit 42.7 40.0 - 53.0 % 03/18/2024 5:27 AM CDT [facility] MCV 91 78 - 100 fL 03/18/2024 5:27 AM CDT [facility] MCH 29.6 26.5 - 33.0 pg 03/18/2024 5:27 AM CDT [facility] MCHC 32.3 31.5 - 36.5 g/dL 03/18/2024 5:27 AM CDT [facility] RDW 13.6 10.0 - 15.0 % 03/18/2024 5:27 AM CDT [facility] Platelet Count 212 150 - 450 10e3/uL 03/18/2024 5:27 AM CDT [facility] % Neutrophils 50 % 03/18/2024 5:27 AM CDT [facility] % Lymphocytes 41 % 03/18/2024 5:27 AM CDT [facility] % Monocytes 6 % 03/18/2024 5:27 AM CDT [facility] % Eosinophils 1 % 03/18/2024 5:27 AM CDT [facility] % Basophils 0 % 03/18/2024 5:27 AM CDT [facility] % Immature Granulocytes 1 % 03/18/2024 5:27 AM CDT [facility] NRBCs per 100 WBC 0 <1 /100 024 5:27 AM CDT [facility] Absolute Neutrophils 4.3 1.6 - 8.3 10e3/uL 03/18/2024 5:27 AM CDT [facility] Absolute Lymphocytes 3.5 0.8 - 5.3 10e3/uL 03/18/2024 5:27 AM CDT [facility] Absolute Monocytes 0.5 0.0 - 1.3 10e3/uL 03/18/2024 5:27 AM CDT [facility] Absolute Eosinophils 0.1 0.0 - 0.7 10e3/uL 03/18/2024 5:27 AM CDT [facility] Absolute Basophils 0.0 0.0 - 0.2 10e3/uL 03/18/2024 5:27 AM CDT [facility] Absolute Immature Granulocytes 0.1 <=0.4 10e3/uL 03/18/2024 5:27 AM CDT [facility] Absolute NRBCs 0.0 10e3/uL 03/18/2024 5:27 AM CDT LABORATORY Blood BLOOD SPECIMEN / Unknown Venipuncture / Unknown 03/18/2024 4:56 AM CDT 03/18/2024 5:00 AM CDT Romelia Tariq DO LAB - BLOOD ORDERA BLES LABORATORY [facility] Acute [facility] Lab [address] Lab (1st floor, no room number) [place] [address], [facility] * (ABNORMAL) Basic metabolic panel (BMP) (03/18/2024 4:56 AM CDT) Sodium 139 135 - 145 mmol/L 03/18/2024 5:23 AM CDT LABORATORY Potassium 3.8 3.4 - 5.3 mmol/L 03/18/2024 5:23 AM CDT LABORATORY Chloride 107 98 - 107 mmol/L 03/18/2024 5:23 AM CDT LABORATORY Carbon Dioxide (CO2) 19(L) 22 - 29 mmol/L 03/18/2024 5:23 AM CDT LABORATORY Anion Gap 13 7 - 15 mmol/L 03/18/2024 5:23 AM CDT LABORATORY Urea Nitrogen 22.0 8.0 - 23.0 mg/dL 03/18/2024 5:23 AM CDT LABORATORY Creatinine 1.04 0.67 - 1.17 mg/dL 03/18/2024 5:23 AM CDT LABORATORY GFR Estimate 80 >60 mL/min/1.7 3m2 03/18/2024 5:23 AM CDT LABORATORY Comment:eGFR calculated usin 2020 CKD-EPI equation. Calcium 8.8 8.8 - 10.4 mg/dL 03/18/2024 5:23 AM CDT [facility] Comment:Reference intervals for this test were updated on 01/17/2024 to reflect our healthy population more accurately. There may be differences in the flagging of prior results with similar values performed with this method. Those prior results can be interpreted in the context of the updated reference intervals. Glucose 127(H) 70 - 99 mg/dL 03/18/2024 5:23 AM CDT LABORATORY Blood BLOOD SPECIMEN / Unknown Venipuncture / Unknown 03/18/2024 4:56 AM CDT 03/18/2024 5:00 AM CDT Romelia Tariq DO LAB - BLOOD ORDERA BLES LABORATORY [facility] Lab [address] [facility] Lab (1st floor, no room number) [place] [address] documented in this encounter Visit Diagnoses Diagnosis Seizure (H) Other convulsions documented in this encounter Administered Medications Inactive Administered Medications - up to 3 most recent administrations Medication Order MAR Action Action Date Dose Rate Site acetaminophen (TYLENOL) tablet 1,000 mg 1,000 mg, Oral, ONCE, On 03/18/24 at 0555, For 1 dose, Maximum acetaminophen dose from all sources = 75 mg/kg/day not to exceed 4 gram $Given 03/18/2024 5:59 AM CDT 1,[address] Scan Flush Intravenous, 100 mL, ONCE, On 03/18/24 at 0700, For 1 dose, This entry is for use by Radiology to intermittently used as a flush in patients receiving a CT scan. $Given 03/18/2024 7:02 AM CDT 80 mLs diphenhydrAMINE (BENADRYL) injection 25 mg 25 mg, Intravenous, ONCE, On 03/18/24 at 0645, For 1 dose $Given 03/18/2024 6:50 AM CDT 25 mg iopamidol (ISOVUE-370) solution 500 mL 500 mL, Intravenous, ONCE, On 03/18/24 at 0700, For 1 dose $Given 03/18/2024 7:02 AM CDT 67 mLs ondansetron (ZOFRAN) injection 4 mg 4 mg, Intravenous, ONCE, Administer over 2-5 Minutes, On 03/18/24 at 0555, For 1 dose $Given 03/18/2024 5:59 AM CDT 4 mg prochlorperazine (COMPAZINE) injection 10 mg 10 mg, Intravenous, ONCE, Administer over 1-2 Minutes, On 03/18/24 at 0645, For 1 dose $Given 03/18/2024 6:50 AM CDT 10 mg documented in this encounter Active and Recently Administered Medications Times are shown in CDT. Scheduled Medication Order 03/16/2024 03/17/2024 03/18/2024 acetaminophen (TYLENOL) tablet 1,000 mg (COMPLETED) 1,000 mg, Oral, ONCE, On 03/18/24 at 0555, For 1 dose, Maximum acetaminophen dose from all sources = 75 mg/kg/day not to exceed 4 gram 0559 ($Given - Provi jersey: Alda Mena RN) CT Scan Flush (COMPLETED) Intravenous, 100 mL, ONCE, On 03/18/24 at 0700, For 1 dose, This entry is for use by Radiology to intermittently used as a flush in patients receiving a CT scan. 0702 ($Given - Provi jersey: Ramos Flores) diphenhydrAMINE (BENADRYL) injection 25 mg (COMPLETED) 25 mg, Intravenous, ONCE, On 03/18/24 at 0645, For 1 dose 0650 ($Given - Provi jersey: Alda Mena RN) iopamidol (ISOVUE-370) solution 500 mL (COMPLETED) 500 mL, Intravenous, ONCE, On 03/18/24 at 0700, For 1 dose 0702 ($Given - Provi jersey: Ramos Flores) ondansetron (ZOFRAN) injection 4 mg (COMPLETED) 4 mg, Intravenous, ONCE, Administer over 2-5 Minutes, On 03/18/24 at 0555, For 1 dose 0559 ($Given - Provi jersey: Alda Mena RN) prochlorperazine (COMPAZINE) injection 10 mg (COMPLETED) 10 mg, Intravenous, ONCE, Administer over 1-2 Minutes, On 03/18/24 at 0645, For 1 dose 0650 ($Given - Provi jersey: Alda Mena RN) documented in this encounter Care Teams Retail Team Member Relationship Specialty Start Date End Date [facility], [place] [address] PCP - General 03/18/24 documented as of this encounter
--- OUTSIDE RECORDS SUMMARY | 2024-04-09 20:12 | XMS_ITS | Clinical Summary ---
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 90 tablet 3 01/17/2016 Active Cholecalciferol, Vitamin D3, (VITAMIN D-3) 2,000 unit tabletIndications:Vi tamin D deficiency Take 1 tablet by mouth once daily. 0 01/17/2016 Active mirtazapine (REMERON) 45 mg tabletIndications:Ma jama depression single episode, in partial remission (HC) TAKE 1 TABLET BY MOUTH EVERY NIGHT AT BEDTIME Ok to fill 06/30/18 90 tablet 09/12/2018 Active pregabalin (Lyrica) 100 mg capsuleIndications:C ervical cord myelomalacia (HC) Take 1 Capsule (100 mg) by mouth 3 times daily. 0 09/30/2021 Active desvenlafaxine succinate (PRISTIQ) 100 mg extended release tablet Take 50 mg by mouth once daily. 08/20/2022 Active ARIPiprazole (ABILIFY) 2 mg tablet Take 2 mg by mouth once daily. 07/27/2022 Active inFLIXimab (Remicade) 100 mg injectionIndications :Crohn's disease of small intestine with fistula (HC) 1,000 mg every 4 weeks. 52 mL 08/20/2022 Active aspirin (ECOTRIN) 81 mg enteric coated tablet Take 1 Tablet (81 mg) by mouth once daily. 0 05/17/2023 Active atorvastatin (LIPITOR) 20 mg tabletIndications:Mi xed hyperlipidemia TAKE 1 TABLET(20 MG) BY MOUTH EVERY DAY 90 Tablet 1 12/28/2023 Active levothyroxine (SYNTHROID) 200 mcg tabletIndications:Ac quired hypothyroidism TAKE 1 TABLET(200 MCG) BY MOUTH BEFORE BREAKFAST 90 Tablet 03/01/2024 Active levETIRAcetam (KEPPRA) 500 mg tablet Take 500 mg by mouth two times daily. Active cannabidiol, CBD, (CANNABIDIOL ORAL) Take by mouth. Taking Atkins 10 mg THC for crohn's BID and Елена 5 mg CBD/THC once daily for crohn's Discontinue d(*Patient states no longer taking) Active Problems Problem Noted Date Diagnosed Date Major depressive disorder, r ecurrent severe without psychotic features 09/30/2021 Immunosuppressed status 09/30/2021 Overview (09/30/2021): On monthly Remicade Anxiety 09/12/2018 Mixed hyperlipidemia 05/19/2017 S/P cervical spinal fusion 12/01/2016 DDD (degenerative disc disease), lumbar 09/09/19 16 Overview (01/17/2016): multilevel Cervical cord myelomalacia 10/11/2014 Spinal stenosis in cervical region 06/11/2014 Cervical spondylosis with myelopathy 06/11/2014 Brachial neuritis or radiculitis NOS 06/11/2014 Lumbar radicular pain 09/13/2012 Neck pain 09/13/2012 Large L4-5 disk herniation 04/14/2012 Major depression single episode, in partial darryn ssion 03/15/2012 Crohn's disease of small intestine with fistula Overview (09/09/2015): Dx 1980 Acquired hypothyroidism Resolved Problems Problem Noted Date Diagnosed Date Resolved Date Cellulitis of skin 06/22/2017 7 Encounters Date Type Department Care Team Description 04/09/2024 Refill [facility] [address] [place] [address] Alonzo Roberts MD Refill Request (pregabalin/pregabali n (Lyrica) 100 mg capsule/) 04/06/2024 3:10 PM CDT Office Visit [facility] [address] [place] [address] Alonzo Roberts MD [facility] F/U ([facility] 03/18--03/19) 04/05/2024 Travel 04/03/2024 Nurse Triage [facility] [address] [place] [address] Alonzo Roberts MD [facility] F/U; Possible Seizure 02/27/2024 Telephone [facility] [address] [place] [address] Alonzo Roberts MD Refill Request (Levothyroxine) from Last 3 Months Immunizations Name Administration Dates Next Due AMB Influenza, IIV3 (Age 6-3 5 mos) Preserve Free (Flu Clinic Only) 05/03/2021 COVID-19 VACCINE SPIKEVAX (M ODERNA 50MCG/0.5ML) 12YO+ PFS 06/14/2023 COVID-19 vaccine (Pfizer-Bio NTech 30mcg/0.3mL) 12YO+ BIVALENT PF, MDV 03/24/2022 COVID-19 vaccine (Locately-Bio NTech 30mcg/0.3mL) 12YO+ CORY-SUCROSE PF, MDV 10/26/2021 COVID-19 vaccine (Locately-Bio NTech 30mcg/0.3mL) PF, MDV 05/03/2021,10/10/2020,09/19/2020 HepA-HepB (Twinrix) 10/20/2018,05/31/2018,2017 Hepatitis B (Adult) 06/19/1997 Hepatitis B (Peds) 06/19/1997 Influenza A (H1N1), Inactivated 07/19/2009 Influenza Virus, Unspecified 04/06/2017, 04/30/2016,04/28/2016,06/11,04/03/2013,03/18/2009,04/13/2006 ,07/02/2005,05/18/2004,05/29/2001,06/04,04/21/1999,05/02/1998, 7,04/20/1995,04/12/1994 Influenza, IIV3 (Age >=3 years) 04/21/20 19,06/03/2018,04/30/2016,04/03 Influenza, IIV4 03/24/2022,,04/25/2020,04/20,05/10/2018,04/06/2017,06/11/2015 Influenza,CCIIV4 PRESERV FREE 06/03/2023 Pneumococcal Poly,23-Valent (Pneumovax) 11/01/2013 Pneumococcal conj 13-Valent (Prevnar 13) 10/20/2018 RSV, Recombinant ADJ Reconst ituted (Arexvy 120MCG/0.5mL) 06/14/2023 Td (Age >=7 Years) 06/19/1997 Tdap 10/06/2022,03/15/2012 Zoster (Shingrix-RZV, recombinant) 10/31/2020, Family History Medical History Relation Name Comments Cancer Brother leukemia d at 5 1 Diabetes type II Brother Heart Disease Father CHF - d at 64 (CABG at 52) Asthma Mother Heart Disease Mother CHF - d at 63 COPD Sister 2 Helen long time smoke r may have copd Diabetes type II Sister 2 Helen Relation Name Status Comments Brother Father Mother Sister 1 Antonia Alive Sister 2 Helen Alive Social History Tobacco Use Types Packs/Day Years Used Date Smoking Tobacco: Never Smokeless Tobacco: Never Tobacco Cessation:Counseling Given: Yes Alcohol Use Standard Drinks/Week Comments Not Currently 0 (1 standard drink = 0.6 oz pur e alcohol) SEE SCREENING TAB PHQ-2 Answer Date Recorded PHQ-2 TOTAL SCORE 0 12/31/2022 Social Connections Answer Date Recorded Frequency of Communication with Friends and Fami ly 0 04/06/2024 Alcohol Use Answer Date Recorded How often do you have a drink containing alcohol ? 0 04/06/2024 How many drinks containing a lcohol do you have on a typical day when you are drinking? 0 04/06/2024 How often do you have five or more drinks on one occasion? 0 04/06/2024 Financial Resource Strain Answer Date R ecorded Difficulty of Paying Living Expenses 3 04/06/2024 Difficulty of Paying Living Expenses Not on file 04/06/2024 Food Insecurity Answer Date Recorded Worried About Running Out of Food in the Last Ye ar 1 04/06/2024 Transportation Needs Answer Date Record ed Lack of Transportation (Medical) 1 04/06/2024 Housing Stability Answer Date Recorded Unable to Pay for Housing in the Last Year 1 04/06/2024 Sex and Gender Information Value Date Recorded Sex Assigned at Not on file Gender Identity Not on file Sexual Orientation Not on file Obstetrics History Last Filed Vital Signs Vital Sign Reading Time Taken Comments Blood Pressure 108/73 04/06/2024 3:10 PM CDT Pulse 76 04/06/2024 3:10 PM CDT Temperature 36.6 ??C (97.8 ??F) 04/06/2024 3:10 PM CD T Respiratory Rate 20 12/23/2020 10:21 AM CDT Oxygen Saturation 96% 04/06/2024 3:10 PM CDT Inhaled Oxygen Concentration - - Weight 103.6 kg (228 lb 8 oz) 04/06/2024 3:10 PM CDT Height 184.8 cm (6' 0.76) 12/31/2022 1:11 PM CD T Body Mass Index 30.35 12/31/2022 1:11 PM CDT Plan of Treatment Upcoming Encounters Date Type Department Care Team (Late st Contact Info) Description 04/18/2024 12:45 PM CDT Orders Only [facility] [address] [place] [address] Lab, [facility] 04/24/2024 12:40 PM CDT Office Visit [facility] [address] [place] [address] Alonzo Roberts MD [address] [place] [address] 04/24/2024 2:30 PM CDT Office Visit [facility] [address] [place] [address] Diego Rushing MD [address] [place] [address] Health Maintenance Due Date Last Done Comments HIV for age 15-65 10/08/1974 Pneumococcal series for age 6-64 (3 of 3 - PPSV23 or PCV20) 12/15/2018 10/20/2018, 11/01/2013 Colonoscopy through age 75 11/11/2019 11/10/2009 BMI (ht and wt on same day) for age 18+ 01/01/2024 12/31/2022, 08/20/2022, 09/30/2021, Additional history exists Depression screening for age 12+ 01/01/2024 12/31/2022, 10/06/2022, 10/04/2022, Additional history exists COVID-19 vaccine series ( season) 2024 06/14/2023, 03/24/2022, 10/26/2021, Additional history exists Influenza for age 50-64 03/04/2024 06/03/20, 03/24/2022, 05/03/2021, Additional history exists Lipids for age 45-75 03/14/2028 03/14/2023, 12/06/2022, 10/06/2022, Additional history exists Tetanus booster 10/06/2032 10/06/2022, 03/04, 06/19/1997 Hepatitis C screening for ag e 18-79 Completed 09/17/2019 Zoster (shingles) series for age 50+ Completed 10/31/2020, 04/25/2020 Tdap Completed 10/06/2022, 03/15/2012 Medical Devices Implanted Type Area Cookie Padder Device Identifier Shelf Expiration Date Model / Serial / Lot Spacer Cerv [id number] [employer] Psr - [id number] Implanted:Qty: 1 on 06/10/2014 at [facility] N/A: Spine Medtronic Spine/Ortho [id number] / / [id number] Spacer Psr Lat Ports [id number] - [id number] Implanted:Qty: 1 on 06/10/2014 at [facility] N/A: Spine Medtronic Spine/Ortho [id number] / / [id number] Screw Cerv Ant 4x16mm [employer] - [id number] Implanted:Qty: 6 on 06/10/2014 at [facility] N/A: Spine Medtronic Spine/Ortho [id number]# / / Plate Cerv 2lvl 42.5mm [place] [employer] Elite - [id number] Implanted:Qty: 1 on 06/10/2014 at [facility] N/A: Spine Medtronic Spine/Ortho [id number]# / / Explanted Type Area Cookie Padder Device Identifier Shelf Expiration Date Model / Serial / Lot Explant Explanted:Qty: 1 on 07/06/2018 at [facility] Description:EXPLANTED & DISC ARDED SPINAL CORD STIMULATOR 2 LEADS Procedures Procedure Name Priority Date/Time Associated Diagnosis Comments LIPID PANEL W REFLEX MEASURED LDL Routine 03/14/2023 10:03 AM CDT Mixed hyperlipidemia ANTI HCV Routine 09/17/2019 11:34 AM CDT Need for hepatitis C screening test from Last 3 Months or Most Recently Relevant to Health Maintenance Results * LIPID PANEL W REFLEX MEASURED LDL (03/14/2023 10:03 AM CDT) CHOLESTEROL,TOTAL 156 100 - 199 mg/dL 03/15/2023 6:18 AM CDT [facility] Comment: Cholesterol, Total Reference Ranges Desirable <200 mg/dL Borderline 200-239 mg/dL High >=240 mg/dL TRIGLYCERIDES 136 <150 mg/dL 03/15/2023 6:18 AM CDT [employer] [facility] HDL CHOLESTEROL 67 >40 mg/dL 6:18 AM CDT [facility] NON-HDL CHOLESTEROL 89 <145 mg/dl 03/15/2023 6:18 AM CDT [facility] CHOL/HDL RATIO 2.33 <4.50 03/15/2023 6:18 AM CDT [facility] [employer] [facility] LDL CHOLESTEROL 62 <=130 mg/dL 03/15/2023 6:18 AM CDT [facility] VLDL CHOLESTEROL 27 <=30 mg/dL 03/15/2023 6:18 AM CDT [facility] PROVIDER ORDERED STATUS RANDOM 03/15/2023 6:18 AM CDT [facility] Blood BLOOD SPECIMEN / Unknown Venipuncture / Unknown 03/14/2023 10:03 AM CDT 03/14/2023 10:04 AM CDT Alonzo Roberts MD CHEMISTRY [facility] [address] [place] [address], * ANTI HCV (09/17/2019 11:34 AM CDT) HEPATITIS C ANTIBODY Non-React jace Non-React jace 09/17/2019 7:51 PM CDT [facility] Comment:Antibodies to HCV no t detected; does not exclude the possibility of exposure to HCV. Blood BLOOD SPECIMEN / Unknown Venipuncture / Unknown 09/17/2019 11:34 AM CDT 09/17/2019 11:36 AM CDT Fernandez Ryan MD SEND [facility] [address] [place] [address], from Last 3 Months or Most Recently Relevant to Health Maintenance Advance Directives * Full Code (Latest Code Status on File) Date Activated Date Inactivated Comments 07/06/2018 8:45 AM 07/06/2018 8:31 PM * Full Code Date Activated Date Inactivated Comments 06/10/2014 2:02 PM 06/12/2014 1:44 PM * Full Code Date Activated Date Inactivated Comments 06/10/2014 8:08 AM 06/10/2014 2:02 PM * Full Code Date Activated Date Inactivated Comments 09/12/2013 11:53 AM 09/13/2013 6:36 PM * Full Code Date Activated Date Inactivated Comments 09/12/2013 9:49 AM 09/12/2013 11:53 AM Care Teams Blanching Machine Operator Relationship Specialty Start Date End Date Alonzo Roberts MD [address] [place] [address] PCP - General Family Practice 08/24/22 Yung Mortensen MD [address] [place] [address] Sports Medicine 03/15/12
--- OUTSIDE RECORDS SUMMARY | 2024-04-09 20:12 | XMS_ITS | Clinical Summary ---
Author Organization Formerly [facility] Address [address] [place] [address] Care Team Providers Care Refining Engineer Name Role Phone Anderson Jacobo MD Primary Care Provider [phone] Source Comments You are receiving this document as you are listed as the primary care provider,follow-up provider, or the patient has been referred to you for consultation.This is in compliance with the Medicare andBar[facility] Cent[facility]aid EHR Incentive Program,which states Providers who transition their patient to another setting of careor provider of care or refers their patient to another provider of care shouldprovide summary care record for each transition of care or referral. [email or web address] Allergies Active Allergy Reactions Criticality Noted Date Comments Codeine Gastrointestinal,Ibrahima sea And Vomiting Low 09/24/1999 Other reaction(s): Nausea, Vomiting Lactose Gastrointestinal Low 10/08/2014 Medications Medication Sig Dispensed Refills Start Date End Date Status cholecalciferol (VITAMIND3) 2000 UNITS tabletIndications: Crohn's disease of ileum, with intestinal obstruction (HRC) Take 1 tablet by mouth daily (every 24 hours). 90 tablet 3 03/05/2015 Active [facility] VITAMIN B12 1000 MCG tablet TAKE 1 TABLET BY MOUTH DAILY (EVERY 24 HOURS). 90 Tab 3 03/25/2016 Active acetaminophen (TYLENOL) 325 MG tablet Take 1-2 Tablets (325-650 mg) by mouth every 4 hours as needed for Pain. Active atorvastatin (LIPITOR) 20 MG tabletIndications: Crohn's disease of both small and large intestine without complication (HRC) Take 1 Tablet (20 mg) by mouth daily. 3 05/23/2017 Active inFLIXimab (REMICADE) injectionIndicatio ns:every 4 weeks Indications: every 4 weeks 09/22/2020 Active fluticasone propionate (FLONASE) 50 MCG/ACT nasal solution INHALE 2 SPRAYS INTO AFFECTED NOSTRILS ONCE DAILY 01/26/2021 Active ibuprofen (MOTRIN) 400 MG tablet Take 1 Tablet (400 mg) by mouth every 6 hours as needed for Pain. Active diclofenac (VOLTAREN) 1 % gel Apply 2 g to skin 4 times a day. Active calcipotriene (DOVONEX) 0.005 % cream Mix equal parts with Efudex 1:1 ratio and apply thin layer to face twice daily for 5 days 60 g 08/19/2021 Active HYDROcodone-acetam inophen (NORCO) 5-325 MG tablet Take 1 Tablet by mouth every 6 hours as needed for Pain. 10 Tablet 12/16/2021 Active Multiple Vitamins-Minerals (PRESERVISION AREDS 2) CAPS Take 2 Capsules by mouth two times a day. Active triamcinolone acetonide (KENALOG) 0.1 % cream Apply twice daily x 5-7 days 15 g 02/28/2022 Active levothyroxine (SYNTHROID) 200 MCG tablet Take 1 Tablet (200 mcg) by mouth before breakfast. 12/07/2022 Active aspirin EC (ASPIR-LOW) 81 MG enteric coated tablet Take 1 Tablet (81 mg) by mouth daily. 11/15/2023 Active sildenafil (VIAGRA) 50 MG tablet Take 1 Tablet (50 mg) by mouth daily. 30 Tablet 2 01/11/2024 Active mirtazapine (REMERON) 45 MG tablet TAKE 1 TABLET BY MOUTH EVERY NIGHT AT BEDTIME. 90 Tablet 3 01/11/2024 Active desvenlafaxine succinate (PRISTIQ) 50 MG 24 hour release tablet Take 1 Tablet (50 mg) by mouth daily. 90 Tablet 3 01/11/2024 Active ARIPiprazole (ABILIFY) 2 MG tablet Take 1 Tablet (2 mg) by mouth daily. 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 Repeat in 5 years (02/2023). Pain disorder associated wit h psychological and physical factors 02/13/2018 Immunosuppression 01/15/2018 Post-traumatic stress disorder, chronic 11/12/19 18 H/O nonmelanoma skin cancer 12/31/2014 Overview (02/28/2023): BCC -Nodular, right lower abdomen, excised 06/2014 Past medical history includes Crohn's disease, on Remicade; spinal stenosis. Previously on Imuran and Humira. Biopsy from the mid parietal scalp 02/2021 showed pigmented AK with vascular ectasia; rebiopsy August 19 2021 showed an inflamed pigmented actinic keratosis as well as a pigmented seborrheic keratosis and telangiectasia. Myelomalacia 10/11/2014 Brachial neuritis 06/11/2014 Overview (02/04/2016): Overview: inactive icd-9 diagnosis auto replaced with icd-10, display name retained//soledad Cervical spinal cord compression 06/11/2014 Spinal stenosis of cervical region 06/11/2014 Radicular pain 09/13/2012 Neck pain 09/13/2012 Displacement of lumbar inter vertebral disc without myelopathy 04/14/2012 Major depressive disorder, s russ episode, in partial remission 03/15/2012 Intestinal obstruction 03/29/2008 Overview (02/23/2017): LW Modifier: resction 1988 for Crohns ; Obstruction Bowel Depressive disorder 07/06/2006 Overview (02/23/2017): Depression NOS Regional enteritis 12/08/2002 Overview (02/23/2017): Crohn's Disease NOS Hypothyroidism 12/08/2002 Overview (02/23/2017): since 23 yoa or so. ; Hypothyroidism Acquired Assessment & Plan (05/14/2015 8:58 AM WINDSHIELD INSTALLER): 05/07/15 - Medication Management following per hypothyroidism CPA Lumbago 12/08/2002 Overview (02/23/2017): LW Modifier: DDD,DJD ; Pain Low Back Encounters Date Type Department Care Team Description 04/06/2024 10:22 AM CDT - 04/06/2024 11:59 PM CDT Hospital Encounter [facility] [address] [place] [address] Doyle Carter MD Crohn's disease of both small and large intestine without complication (HRC) (Primary Dx) 03/11/2024 Refill [facility] [address] [place] [address] Sabrina Cardenas, LABORER PIPELINE, SENIOR C SOFTWARE DEVELOPER Refill 03/08/2024 10:07 AM CDT - 03/08/2024 11:59 PM CDT Hospital Encounter [address] [address] Saman Flor MD Crohn's disease of both small and large intestine without complication (HRC) (Primary Dx) 03/06/2024 3:15 PM CDT Office Visit [facility] [address] [place] [address] Miki Lamas MD Sun-damaged skin (Primary Dx); Multiple pigmented nevi; Actinic keratosis; Seborrheic keratoses; H/O nonmelanoma skin cancer; H/O dysplastic nevus 02/10/2024 12:55 PM CDT - 02/10/2024 11:59 PM CDT Hospital Encounter [facility] [address] [place] [address] Doyle Carter MD Crohn's disease of both small and large intestine without complication (HRC) (Primary Dx) 01/26/2024 8:30 AM CDT Lab Visit [facility] [address] [place] [address] Encounter for long-term (current) use of medications 01/12/2024 10:02 AM CDT - 01/12/2024 11:59 PM CDT Hospital Encounter [facility] [address] [place] [address] Saman Flor MD Crohn's disease of both small and large intestine without complication (HRC) (Primary Dx) from Last 3 Months Immunizations Name Administration Dates Next Due Flu Vac (3+ yrs) 04/30/2016, 3,05/29/2001,1999,04/21/1999,05/02/1998,04/24/1997,1 ,04/12/1994 Flu Vac Preserv Free (3+yrs) 04/21/2012, 03/18/2009,04/13/2006,2004,05/18/2004 [id number] 07/19/2009 HepA-HepB (TWINRIX, 18+ yrs) 10/20/2018,05/31/20 18,04/26/2018 HepB Adult (Engerix-B, 20+ y rs, 3 dose series) 06/19/1997 HepB Ped/Adol (0-18 yrs) 06/19/1997 Influenza ([place] Only) (Flul aval Quad 0.5, 3+ yrs) 04/28/2016 Influenza (Flucelvax), Prese rv Free QIV 06/03/2023 Influenza IIV4 (Quadrivalent ) 0.5mL (59135) 04/20/2019,05/10/2018,04/06/2017,2014 Influenza, Unspecified Formulation 04/06,04/16/2014,03/18/2009,2005,07/02/2005,05/18/2004,05/29/2001,1 08/24/1999,04/21/1999,05/02/1998, 997,04/20/1995,04/12/1994,04/22/1993 PCV13 (Prevnar) 10/20/2018 PPSV23 (Pneumovax) 11/01/2013 TDAP (BOOSTRIX) 03/15/2012 Td 06/19/1997 Tdap 03/15/2012 Social History Tobacco Use Types Packs/Day Years [...] Sign Reading Time Taken Comments Blood Pressure 125/65 04/06/2024 12:41 PM CDT Pulse 70 03/08/2024 12:00 PM CDT Temperature 36.4 ??C (97.5 ??F) 04/06/2024 11:20 AM C DT Respiratory Rate 16 09/19/2023 3:25 PM CDT Oxygen Saturation 100% 04/06/2024 11:20 AM CDT Inhaled Oxygen Concentration - - Weight 102.5 kg (226 lb) 04/06/2024 11:20 AM CDT Height 185.4 cm (6' 1) 01/11/2024 9:58 AM CDT Body Mass Index 29.82 01/11/2024 9:58 AM CDT Plan of Treatment Upcoming Encounters Date Type Department Care Team (Late st Contact Info) Description 05/03/2024 10:00 AM CDT Appointment [facility] [address] [place] [address] 06/01/2024 10:30 AM WINDSHIELD INSTALLER Appointment [facility] [id number] [place] [address] 06/28/2024 10:30 AM WINDSHIELD INSTALLER Appointment [facility] [address] [place] [address] 03/12/2025 8:15 AM CDT Appointment [facility] [address] [place] [address] Miki Lamas MD [address] [place], [place] [id number] Health Maintenance Due Date Last Done Comments Medicare Annual Wellness Visit 1960 PSA Screening Discussion 1960 HIV Screening (Preventive Services) 1975 HepA (4 of 4 - Hep A Twinrix risk 4-dose series) 04/26/2019 10/20/2018, 05/31/2018, 04/26/2018 COVID-19 Vaccine ( season) 2024 06/14/2023, 03/24/2022, 10/26/2021, Additional history exists Influenza (#1) 2024 06/03/2023, 03/05, 05/03/2021, Additional history exists Diabetes Screening- (based on age and BMI) 01/25/2027 01/26/2024 Colonoscopy 09/18/2028 09/19/2023, 02/02, 03/21/2015, Additional history exists Cholesterol 01/25/2029 01/26/2024, 03/04, 07/24/2001 DTaP/Tdap/Td (4 - Tdap) 10/06/2032 10/07/19 23, 03/15/2012, 03/15/2012, Additional history exists RSV (1 - 1-dose 75+ series) 10/08/2034 Hep C Screening (Preventive Services) Completed 01/13/2018 HepB Completed 10/20/2018, 05/05, 04/26/2018, Additional history exists Pneumococcal Aged Out 10/20/2018, 11/01/2013 No lo nger eligible based on patient's age to complete this topic Zoster/Shingles Completed 10/31/2020, 04/25/2020 Hib Aged Out No longer eligi ble based on patient's age to complete this topic IPV (Polio) Aged Out No longer eligi ble based on patient's age to complete this topic RSV Aged Out No longer eligi ble based on patient's age to complete this topic MCV4 Aged Out No longer eligi ble based on patient's age to complete this topic Procedures Procedure Name Priority Date/Time Associated Diagnosis Comments LIPID PANEL & DIRECT LDL (IF NEEDED) Routine 01/26/2024 8:51 AM CDT Encounter for long-term (current) use of medications HGB A1C Routine 01/26/2024 8:51 AM CDT Encounter for long-term (current) use of medications ENDOSCOPY, COLON, SCREENING/DIAGNOST IC Routine 09/19/2023 2:15 PM CDT Polyp of colon, unspecified part of colon, unspecified type HEPATITIS C ANTIBODY, WITH REFLEX Routine 01/13/2018 3:56 PM CDT Crohn's disease of both small and large intestine without complication (HRC) from Last 3 Months or Most Recently Relevant to Health Maintenance Results * Lipid Panel and Direct LDL(If Needed) (01/26/2024 8:51 AM CDT) Cholesterol 154 0 - 199 mg/dL 01/26/2024 3:39 PM [facility] Triglyceride 98 <=149 mg/dL 01/26/2024 3:39 PM [facility] HDL Cholesterol 57 >=40 mg/dL 3:39 PM [facility] LDL, Calculated 77 <130 mg/dL 4 3:39 PM [facility] Non HDL Chol, Calculated 97 <=159 mg/dL 01/26/2024 3:39 PM [facility] Cholesterol/HDL Ratio 2.7 <=5.0 01/26/2024 3:39 PM [facility] Hours Fasting 0.1 8 - 12 Hours 01/26/2024 3:39 PM [facility] Comment:Lab unable to obtain patient's fasting status at time of specimen collection. Blood Venipuncture / Unknown 01/26/2024 8:51 AM CDT 01/26/2024 8:52 AM CDT Bok Chauhan MD LAB_1 Performing Organization Address [facility] de Phone Number [facility] [address] [place] [address] * Hgb A1c (01/26/2024 8:51 AM CDT) Hemoglobin A1C 5.6 <=5.6 % 01/26/2024 5:29 PM CDT [facility] Estimated Average Glucose (Calc) 114 < 117 mg/dL 01/26/2024 5:29 PM CDT [facility] Comment:Estimated average gl ucose (eAG) converts A1c into glucose units (mg/dL) and estimates average glucose over the past approximately 3 months. The eAG reference interval (<117 mg/dL) corresponds to an A1c of <5.7%. Blood Venipuncture / Unknown 01/26/2024 8:51 AM CDT 01/26/2024 8:52 AM CDT Ania Chauhan MD LAB_1 Performing Organization Address [facility] de Phone Number [facility] [address] * Endoscopy, colon, diagnostic (09/19/2023 2:15 PM CDT) Anatomical Region Laterality Modality Other 09/19/2023 2:15 PM CDT Narrative 09/19/2023 2:15 PM CDT Patient Name: Jez Arechiga Procedure Date: 09/19/2023 2:15 PM Date of : 1960 Admit Type: Outpatient Age: 62 Gender: Male Note Status: Finalized Attending MD: John Moura MD, Procedure: ? Colonoscopy Indications: ? High risk colon cancer ? surveillance: Personal history of ? colonic polyps (hyperplastic only), ? Last colonoscopy: February 2018, ? Incidental - Follow-up of Crohn's ? disease of the small bowel, ? Incidental - Disease activity ? assessment of Crohn's disease of ? the small bowel Providers: ? Jhon Moura MD, Maira Fierro MD: ?Anderson Jacobo Medicines: ? Fentanyl 100 micrograms IV, ? Midazolam 2 mg IV Complications: ? No immediate complications. Procedure: ? After I obtained informed consent, ? the scope was passed under direct ? vision. Throughout the procedure, ? the patient's blood pressure, ? pulse, and oxygen saturations were ? monitored continuously. The ? [id number] was introduced through ? the anus and advanced to 10 cm into ? the ileum. The colonoscopy was ? performed without difficulty. The ? patient tolerated the procedure ? well. The quality of the bowel ? preparation was good. Anatomical ? landmarks were photographed. Findings: ? The terminal ileum contained two 5-10 mm ulcers. No ? bleeding was present. No stigmata of recent bleeding ? were seen. Biopsies were taken with a cold forceps ? for histology. ? There was evidence of a prior end-to-end ileo-colonic ? anastomosis at the hepatic flexure. This was patent ? and was characterized by healthy appearing mucosa. ? The anastomosis was traversed. ? The entire examined colon appeared normal. Moderate Sedation: ? Moderate (conscious) sedation was administered by the ? nurse and supervised by the endoscopist. The ? patient's oxygen saturation, heart rate, blood ? pressure and response to care were monitored. Total ? physician intraservice time was 12 minutes. ? This time is the duration from the initial medication ? administration until the jet wiper assists with ? initial maneuvers (biopsy / polypectomy / etc.), or ? if no maneuvers are performed, until the endoscopist ? leaves the room. Impression: ?- Two ulcers in the terminal ileum. ? Biopsied. ? - Despite these ulcers, the patient ? is in clinical remission and has ? been so for a long time on [id number] ? infliximab. ? - Patent end-to-end ileo-colonic ? anastomosis, characterized by ? healthy appearing mucosa. ? - The entire examined colon is ? normal. Recommendation: ?- Await pathology results. ? - Return to GI clinic at ? appointment to be scheduled. ? - Continue present medications. Procedure Code(s): ? --- Professional --- ? 08322, Colonoscopy, flexible; with ? biopsy, single or multiple ? G0500, Moderate sedation services ? provided by the same physician or ? other qualified health care ? professional performing a ? gastrointestinal endoscopic service ? that sedation supports, requiring ? the presence of an independent ? trained observer to assist in the ? monitoring of the patient's level ? of consciousness and physiological ? status; initial 15 minutes of ? intra-service time; patient age 5 ? years or older (additional time may ? be reported with 31952, as ? appropriate) Diagnosis Code(s): ? --- Professional --- ? Z86.010, Personal history of ? colonic polyps ? K63.3, Ulcer of intestine ? Z98.0, Intestinal bypass and ? anastomosis status CPT copyright 2021 [employer]. All rights reserved. The codes documented in this report are preliminary and upon sweatband cutting machine operator review may be revised to meet current compliance requirements. John Moura MD 09/19/2023 3:17:03 PM This document has been electronically signed. Number of Addenda: 0 Note Initiated On: 09/19/2023 2:15 PM ? Endoscopy Report Procedure Note John Moura MD - 09/19/2023 Patient Name: Jez Arechiga Procedure Date: 09/19/2023 2:15 PM Date of : 1960 Admit Type: Outpatient Age: 62 Gender: Male Note Status: Finalized Attending MD: John Moura MD, Procedure: Colonoscopy Indications: High risk colon cancer surveillance: Personal history of colonic polyps (hyperplastic only), Last colonoscopy: February 2018, Incidental - Follow-up of Crohn's disease of the small bowel, Incidental - Disease activity assessment of Crohn's disease of the small bowel Providers: John Moura MD, Maira Cisneros Referring MD: Anderson Jacobo Medicines: Fentanyl 100 micrograms IV, Midazolam 2 mg IV Complications: No immediate complications. Procedure: After I obtained informed consent, the scope was passed under direct vision. Throughout the procedure, the patient's blood pressure, pulse, and oxygen saturations were monitored continuously. The [id number] was introduced through the anus and advanced to 10 cm into the ileum. The colonoscopy was performed without difficulty. The patient tolerated the procedure well. The quality of the bowel preparation was good. Anatomical landmarks were photographed. Findings: The terminal ileum contained two 5-10 mm ulcers. No bleeding was present. No stigmata of recent bleeding were seen. Biopsies were taken with a cold forceps for histology. There was evidence of a prior end-to-end ileo-colonic anastomosis at the hepatic flexure. This was patent and was characterized by healthy appearing mucosa. The anastomosis was traversed. The entire examined colon appeared normal. Moderate Sedation: Moderate (conscious) sedation was administered by the nurse and supervised by the endoscopist. The patient's oxygen saturation, heart rate, blood pressure and response to care were monitored. Total physician intraservice time was 12 minutes. This time is the duration from the initial medication administration until the jet wiper assists with initial maneuvers (biopsy / polypectomy / etc.), or if no maneuvers are performed, until the endoscopist leaves the room. Impression: - Two ulcers in the terminal ileum. Biopsied. - Despite these ulcers, the patient is in clinical remission and has been so for a long time on [id number] infliximab. - Patent end-to-end ileo-colonic anastomosis, characterized by healthy appearing mucosa. - The entire examined colon is normal. Recommendation: - Await pathology results. - Return to GI clinic at appointment to be scheduled. - Continue present medications. Procedure Code(s): --- Professional --- 04497, Colonoscopy, flexible; with biopsy, single or multiple G0500, Moderate sedation services provided by the same physician or other qualified health daycare teacher performing a gastrointestinal endoscopic service that sedation supports, requiring the presence of an independent trained observer to assist in the monitoring of the patient's level of consciousness and physiological status; initial 15 minutes of intra-service time; patient age 5 years or older (additional time may be reported with 19701, as appropriate) Diagnosis Code(s): --- Professional --- Z86.010, Personal history of colonic polyps K63.3, Ulcer of intestine Z98.0, Intestinal bypass and anastomosis status CPT copyright 2021 [employer]. All rights reserved. The codes documented in this report are preliminary and upon sweatband cutting machine operator review may be revised to meet current compliance requirements. John Moura MD 09/19/2023 3:17:03 PM This document has been electronically signed. Number of Addenda: 0 Note Initiated On: 09/19/2023 2:15 PM Endoscopy Report Doyle Self MD ET GI PROCEDURE RONNIE ALONZO * Hepatitis C Virus Beatrice with Reflex In-House (01/13/2018 3:56 PM CDT) Hepatitis C Antibody Nonreactive Nonreactive PN SOFT 01/13/2018 3:56 PM CDT 01/13/2018 4:08 PM CDT Narrative PN SOFT - 01/13/2018 5:04 PM CDT Performed at [facility], [address] [place] [id number] CLIA number [id number] Doyle Self MD LAB_1 PN SOFT [address] [place] [id number] from Last 3 Months or Most Recently Relevant to Health Maintenance Care Teams Refining Engineer Relationship Specialty Start Date End Date Anderson Jacobo MD [address] [place], [place] [address] PCP - General 03/04/16
--- OUTSIDE RECORDS SUMMARY | 2024-04-09 20:12 | XMS_ITS | Encounter Summary ---
Author Organization [facility] Address [address] [place] [address] Care Team Providers Care Patient Service Associate Name Role Phone Anderson Jacobo MD Primary Care Provider [phone] Reason for Visit * Reason Comments Skin Check Lesions on top of sc alp. Slightly tender. Encounter Details Date Type Department Care Team (Late st Contact Info) Description 03/06/2024 3:15 PM CDT Office Visit [facility] [address] [place] [address] Miki Lamas MD [address] [place] [address] [phone] Sun-damaged skin (Primary Dx); Multiple pigmented nevi; Actinic keratosis; Seborrheic keratoses; H/O nonmelanoma skin cancer; H/O dysplastic nevus Social History Tobacco Use Types Packs/Day Years [...] on file documented as of this encounter Patient Instructions * Patient Instructions* Елена Butterfield MA - 03/06/2024 3:15 PM CDT Liquid Nitrogen Treatment (Cryotherapy) How it Works: Liquid nitrogen (Cryotherapy) is a cold liquified gas, with a temperature of -321?? F. It's used to freeze and destroy superficial skin growths. Treatment Goals: Treatment with liquid nitrogen may cause the treated area to appear red or swollenanywhere from a few hours to a couple of days. Usually a scab/crust forms, which will fall off by itself in 1 to 3 weeks. The skin growth will fall off with the scab, leaving healthy new skin. This new skin is typically instruction dean, and will usually blend in color-sosa over time. You May Experience: Liquid nitrogen causes stinging and mild pain while the growth is being frozen and then thaws. The worst discomfort occurs during the first five to 10 minutes of the procedure, but can sometimes last significantly longer. A blister, sometimes a blood blister, may form. If this occurs, you may pop the blister with a clean needle, but leave the roof of the blister intact on the skin. If this does happen, keep the area covered with a Band-Aid and use Vaseline. Areas that are prone to blistering are the eyelids and hands. The blisters and swelling are part of the treatment and will gradually heal. No special care is needed. You can wash as usual and use makeup or other cosmetics. You also may experience some redness, swelling, tenderness, weeping, or crusts/scabs. Try not to pick at, itch, or scrub the area. If the treated sore area feels sore or irritated, you can keep it covered. Avoid excessive sun exposure since this can result in persistent darkening at the treated sites. PLEASE NOTE: Sometimes, growths have to be re-frozen. If your growth is not cured by liquid nitrogen, please make a return appt. Uncommon: Call the dermatology clinic if you have any white, green, or yellow fluid drainage or anysign of an apparent infection. documented in this encounter Progress Notes * Miki Lamas MD - 03/06/2024 3:15 PM CDT DERMATOLOGY VISIT Visit Date: 03/06/2024 Jez Arechiga 1960 [id number] Chief Complaint Patient presents with Skin Check Lesions on top of scalp. Slightly tender. Problem List: H/O dysplastic nevus (02/23/2022) -mildly DN, right great toe, biopsied 01/2017 H/O nonmelanoma skin cancer (12/31/2014) BCC -Nodular, right lower abdomen, excised 06/2014 Past medical history includes Crohn's disease, on Remicade; spinal stenosis. Previously on Imuran and Humira. Biopsy from the mid parietal scalp 02/2021 showed pigmented AK with vascular ectasia; rebiopsy August 19 2021 showed an inflamed pigmented actinic keratosis as well as a pigmented seborrheic keratosis and telangiectasia. No questionnaires on file. Last Visit Maximum visits displayed: 1 Date Type Department Provider Description 02/28/2023 Office Visit [facility] Miki Laams MD Sun-damaged skin (Primary Dx); Multiple pigmented nevi; Ch... Subjective: 63 y.o. here for a full body skin exam. He has noticed a gritty spot on the mid frontalscalp. He has a number of cosmetically bothersome growths over the forehead and temples, left axilla, right posterior ear. Otherwise well skin complaints. There are no specialty comments Objective: Total body skin examination of the head, neck, chest, back, abdomen, all 4 extremities, genitals and buttocks was performed. Dermoscopy implemented. Assessment/Plan: 1. Sun-damaged skin 2. Multiple pigmented nevi 3. Actinic keratosis Related Procedures Destruc Premalig Les; 1 Les (76109) 4. Seborrheic keratoses Related Procedures COSMETIC REMOVALS 6-14 5. H/O nonmelanoma skin cancer 6. H/O dysplastic nevus Clinical impression reviewed with patient. Monitor for atypical or changing lesions. Sun protection and sunscreen recommended. Skin cancer awareness reviewed. Actinic keratosis on the mid frontal scalp: Single gritty papule. Treated with cryotherapy. History of nonmelanoma skin cancer: Well-healed scar on the right lower abdomen. No evidence recurrence. Seborrheic keratoses x 14 on the forehead, temples, right posterior ear, left axilla: Brown, waxy stuck on papules and plaques appreciated. Treated with cryotherapy. Cosmetic consent form signed. Benign lesions on exam: No other concerning lesions identified. Return to clinic annually This note was created using voice recognition software and may contain unintended word substitutions. documented in this encounter Plan of Treatment Upcoming Encounters Date Type Department Care Team (Late st Contact Info) Description 05/03/2024 10:00 AM CDT Appointment [facility] [address] [place] [id number] 06/01/2024 10:30 AM SALES PRODUCT MANAGER Appointment [facility] [address] [place] [phone] 06/28/2024 10:30 AM SALES PRODUCT MANAGER Appointment [facility] [address] [place] [phone] 03/12/2025 8:15 AM CDT Appointment [facility] [address] [place] [address] Miki Lamas MD [address] [place] [address] documented as of this encounter Visit Diagnoses Diagnosis Sun-damaged skin- Primary Other chronic dermatitis due to solar radiation Multiple pigmented nevi Benign neoplasm of skin, site unspecified Actinic keratosis Seborrheic keratoses H/O nonmelanoma skin cancer Personal history of other malignant neoplasm of skin H/O dysplastic nevus Personal history of diseases of skin and subcutaneous tissue documented in this encounter Care Teams Patient Service Associate Relationship Specialty Start Date End Date Anderson Jacobo MD [address] [place], [place] [phone] PCP - General 03/04/16 documented as of this encounter
--- OUTSIDE RECORDS SUMMARY | 2024-04-09 20:12 | XMS_ITS | Encounter Summary ---
Author Organization [facility] Address [address] [place] [address] Care Team Providers Care Refrigerated Cargo Clerk Name Role Phone Anderson Jacobo MD Primary Care Provider [phone] Reason for Visit * Reason Comments Infusion Encounter Details Date Type Department Care Team (Latest Contact Info) Description 01/12/2024 10:02 AM CDT - 01/12/2024 11:59 PM CDT Hospital Encounter [facility] [address] [place] [address] Saman Flor MD [address] [place] [id number] Crohn's disease of both small and [...] Sign Reading Time Taken Comments Blood Pressure 132/79 01/12/2024 11:33 AM CDT Pulse 53 01/12/2024 11:33 AM CDT Temperature - - Respiratory Rate - - Oxygen Saturation 98% 01/12/2024 10:15 AM CDT Inhaled Oxygen Concentration - - Weight 99 kg (218 lb 4.8 oz) 01/12/2024 10:15 AM CDT Height - - Body Mass Index 28.8 01/11/2024 9:58 AM CDT documented in this [...] as of this encounter Progress Notes * Pema Camacho RN - 01/12/2024 10:30 AM CDT Dx: Crohn's Disease Provider: Dr. Self Is this the first dose: No History of previous infusion reactions? No Premedications: None Patient arrived for Remicade infusion. Infused over 1 hours per standard rapid infusion protocol. Pt tolerated infusion without incidence. Returns in 4 weeks for next infusion. Discharge instructions reviewed. Pema Camacho RN 11:42 AM 01/12/2024 documented in this encounter Plan of Treatment Upcoming Encounters Date Type Department Care Team (Late st Contact Info) Description 05/03/2024 10:00 AM CDT Appointment [facility] [address] [place] [address] 06/01/2024 10:30 AM SENIOR WINDOWS ADMINISTRATOR Appointment [facility] [address] [place] [address] 06/28/2024 10:30 AM SENIOR WINDOWS ADMINISTRATOR Appointment [facility] [address] [place] [address] 03/12/2025 8:15 AM CDT Appointment [facility] [address] [place] [address] Miki Lamas MD [address] [place] [address] documented as of this encounter Visit Diagnoses [...] 250 mL IVPB 1,000 mg (rounded from 990 mg = 10 mg/kg ? 99 kg), Intravenous, Administer over 1-2 Hours, ONCE, On Gifty 01/12/24 at 1045, For 1 dose Started 01/12/2024 10:33 AM CDT 1,000 mg 250 mL/hr sodium chloride 0.9% injection 10-60 mL 10-60 mL, Intravenous, PRN BEFORE&AFTER MEDICATIONS OR LAB DRAW, Line Patency, Starting on Gifty 01/12/24 at 1016, Until Gifty 01/12/24 at 1342, For 1 day Given 01/12/2024 11:37 AM CDT 10 mL documented in this encounter Care Teams Refrigerated Cargo Clerk Relationship Specialty Start Date End Date Anderson Jacobo MD [address] [place] [address] PCP - General 03/04/16 documented as of this encounter
--- OUTSIDE RECORDS SUMMARY | 2024-04-09 20:12 | XMS_ITS ---
Author Organization [facility] Address [address] [place] [id number] Care Team Providers Care Coordinator Volunteer Services Name Role Phone Angle Sherwood Frost Primary Care Provider Transitional Care Management Status:Closed (Closed) Start date:03/20/2024 Enrollment date:03/21/2024 End date:04/03/2024 Close reason:Goals met Continued Care and Services Coordination
--- OUTSIDE RECORDS SUMMARY | 2024-04-09 20:12 | XMS_ITS | Encounter Summary ---
Author Organization [facility] Address [address] [place] [address] Care Team Providers Care Reel Cutter Name Role Phone Anderson Jacobo MD Primary Care Provider [phone] Reason for Visit * Reason Comments Infusion Encounter Details Date Type Department Care Team (Latest Contact Info) Description 04/06/2024 10:22 AM CDT - 04/06/2024 11:59 PM CDT Hospital Encounter [facility] [address] [place] [address] Doyle Carter MD [address] [place] [address] [phone] Crohn's disease of both small and large [...] Pressure 125/65 04/06/2024 12:41 PM CDT Pulse - - Temperature 36.4 ??C (97.5 ??F) 04/06/2024 11:20 AM C DT Respiratory Rate - - Oxygen Saturation 100% 04/06/2024 11:20 AM CDT Inhaled Oxygen Concentration - - Weight 102.5 kg (226 lb) 04/06/2024 11:20 AM CDT Height - - Body Mass Index 29.82 01/11/2024 9:58 AM CDT documented in this [...] mouth daily. 11/15/2023 atorvastatin (LIPITOR) 20 MG tabletIndications:Crohn' s disease of both small and large intestine without complication (HRC) Take 1 Tablet (20 mg) by mouth daily. 3 05/23/2017 calcipotriene (DOVONEX) 0.005 % cream Mix equal parts with Efudex 1:1 ratio and apply thin layer to face twice daily for 5 days 60 g 08/19/2021 cholecalciferol (VITAMIND3) 2000 UNITS tabletIndications:Crohn' s disease of ileum, with intestinal obstruction (HRC) [...] SPRAYS INTO AFFECTED NOSTRILS ONCE DAILY 01/26/2021 HYDROcodone-acetaminophe n (NORCO) 5-325 MG tablet Take 1 Tablet by mouth every 6 hours as needed for Pain. 10 Tablet 12/16/2021 ibuprofen (MOTRIN) 400 MG tablet Take 1 Tablet (400 mg) by mouth every 6 hours as needed for Pain. inFLIXimab (REMICADE) injectionIndications:brie ry 4 weeks Indications: every 4 weeks 09/22/2020 levothyroxine (SYNTHROID) 200 MCG tablet Take 1 Tablet (200 mcg) by mouth before breakfast. 12/07/2022 mirtazapine (REMERON) 45 MG tablet TAKE 1 TABLET BY MOUTH EVERY NIGHT AT BEDTIME. 90 Tablet 3 01/11/2024 Multiple Vitamins-Minerals (PRESERVISION AREDS 2) CAPS Take 2 Capsules by mouth two times a day. pregabalin (LYRICA) 100 MG capsule take 1 capsule by mouth three times daily 90 Capsule 03/12/2024 sildenafil (VIAGRA) 50 MG tablet Take 1 Tablet (50 mg) by mouth daily. 30 Tablet 2 01/11/2024 triamcinolone acetonide (KENALOG) 0.1 % cream Apply twice daily x 5-7 days 15 g 02/28/2022 documented as of this encounter Progress Notes * Brynn Mendez RN - 04/06/2024 10:30 AM CDT Dx: Crohn's Disease Provider: Dr. Self Is this the first dose: No History of previous infusion reactions? No Premedications: None Patient arrived for rapid Remicade infusion. Vital signs stable. No signs of infection. Patient was seen at [facility] on 03/18 for [address] Per Dr. Self, ok to proceed with treatment today. Patient has f/u appt with PCP today. Patient now taking Keppra 500 mg BID.. Tolerated infusion well. Discharged in stable condition. Will return to clinic for next infusion asscheduled on 06/28. Brynn Mendez RN 12:46 PM 04/06/2024 documented in this encounter Plan of Treatment Upcoming Encounters Date Type Department Care Team (Late st Contact Info) Description 05/03/2024 10:00 AM CDT Appointment [facility] [address] [place] [address] 06/01/2024 10:30 AM DIRECT CHILL CASTING OPERATOR Appointment [facility] [address] [place] [address] 06/28/2024 10:30 AM DIRECT CHILL CASTING OPERATOR Appointment [facility] [address] [place] [address] 03/12/2025 8:15 AM CDT Appointment [facility] [address] [place] [address] Miki Lamas MD [address] [place] [address] documented as of this encounter Visit Diagnoses [...] Intravenous, Administer over 1-2 Hours, ONCE, On Tue04/06/24 at 1145, For 1 dose Started 04/06/2024 11:34 AM CDT 1,000 mg sodium chloride 0.9% injection 10-60 mL 10-60 mL, Intravenous, PRN BEFORE&AFTER MEDICATIONS OR LAB DRAW, Line Patency, Starting on Tue04/06/24 at 1120, Until Tue04/06/24 at 1447, For 1 day Given 04/06/2024 11:22 AM CDT 10 mL documented in this encounter Care Teams Reel Cutter Relationship Specialty Start Date End Date Anderson Jacobo MD [address] [place] [address] PCP - General 03/04/16 documented as of this encounter
--- OUTSIDE RECORDS SUMMARY | 2024-04-09 20:12 | XMS_ITS | Encounter Summary ---
Author Organization [facility] Address [address] [place] [address] Care Team Providers Care Treatment Counselor Name Role Phone Anderson Jacobo MD Primary Care Provider [phone] Reason for Visit * Reason Comments Refill Encounter Details Date Type Department Care Team (Late st Contact Info) Description 03/11/2024 Refill [facility] [address] [place] [address] Sabrina Cardenas, TRAVEL TICKETING REVIEWER, ROLL TENDER [address] [place], [place] [phone] Refill Social History Tobacco Use Types Packs/Day Years [...] on file documented as of this encounter Nursing Notes * Cori Rushing RN - 03/12/2024 12:09 PM CDT Called patient and left message that he needs to be seen or have PCP take over. * Sabrina Cardenas, TRAVEL TICKETING REVIEWER, ROLL TENDER - 03/12/2024 10:18 AM CDT One month refill approved, due for annual clinic visit or could have RX taken over by PCP. documented in this encounter Plan of Treatment Upcoming Encounters Date Type Department Care Team (Late st Contact Info) Description 05/03/2024 10:00 AM CDT Appointment [facility] [address] [place] [address] 06/01/2024 10:30 AM PHOTOFLASH POWDER MIXER Appointment [facility] [address] [place] [phone] 06/28/2024 10:30 AM PHOTOFLASH POWDER MIXER Appointment [facility] [address] [place] [phone] 03/12/2025 8:15 AM CDT Appointment [facility] [address] [place] [address] Miki Lamas MD [address] [place], [place] [address] documented as of this encounter Visit Diagnoses Not on filedocumented in this encounter Care Teams Treatment Counselor Relationship Specialty Start Date End Date Anderson Jacobo MD [address] [place], [place] [phone] PCP - General 03/04/16 documented as of this encounter
== END 2024-04-09 20:09 | disposition home or self-care (01) ==
LOC: SLEEP 20:09
PROVIDERS: PCP Family Medicine; Visit Provider Family Medicine
DX: G47.33 Obstructive sleep apnea (adult) (pediatric) (principal)
CPT/HCPCS: 95810